=== PATIENT | male | born 1945 | race Caucasian/White ===

== ENCOUNTER 2020-10-31 08:50 | Outpatient (REF) | payer MEDICARE, SELFPAY ==
[2020-10-31 10:56] LABS: Alanine Aminotransferase 14 U/L (0-40); Albumin Level 4.3 g/dL (3.5-5.0); Alkaline Phosphatase 53 U/L (39-117); Anion Gap 12 (12-20); Aspartate Amino Transferase 17 U/L (5-37); Bilirubin Total 1.2 mg/dL (0.0-1.0); Blood Urea Nitrogen 17 mg/dL (9-16); Calcium 9.2 mg/dL (8.4-10.2); Carbon Dioxide 27 mmol/L (22-29); Chloride 106 mmol/L (96-108); Estimated Glomerular Filt Rate > 60; Glucose Fasting 87 mg/dL (60-99); Potassium 4.1 mmol/L (3.3-5.1); Sodium 141 mmol/L (135-145)
[2020-10-31 11:38] LABS: Prostate Specific Antigen 7.94 ng/mL (<0.05-4.0)
== END 2020-10-31 08:51 | disposition home or self-care (01) ==
LOC: HO.LAB 08:50
PROVIDERS: PCP Internal Medicine; Visit Provider Nurse Practitioner Family
DX: Z13.1 Encounter for screening for diabetes mellitus (principal); Z12.5 Encounter for screening for malignant neoplasm of prostate
CPT/HCPCS: 36415; 80053; 84153

== ENCOUNTER 2021-11-04 08:24 | Outpatient (REF) | payer MEDICARE, SELFPAY ==
[2021-11-04 09:12] LABS: Alanine Aminotransferase 12 U/L (0-40); Albumin Level 4.1 g/dL (3.5-5.0); Alkaline Phosphatase 49 U/L (39-117); Anion Gap 12 (12-20); Aspartate Amino Transferase 16 U/L (5-37); Bilirubin Total 1.2 mg/dL (0.0-1.0); Blood Urea Nitrogen 14 mg/dL (9-16); Calcium 9.2 mg/dL (8.4-10.2); Carbon Dioxide 26 mmol/L (22-29); Chloride 109 mmol/L (96-108); Estimated Glomerular Filt Rate > 60; Glucose Fasting 96 mg/dL (60-99); Potassium 4.2 mmol/L (3.3-5.1); Sodium 143 mmol/L (135-145); Total Protein 6.9 g/dL (6.5-8.0)
[2021-11-04 09:48] LABS: Prostate Specific Antigen 9.99 ng/mL (<0.05-4.0)
== END 2021-11-04 08:25 | disposition home or self-care (01) ==
LOC: HO.LAB 08:24
PROVIDERS: PCP Internal Medicine; Visit Provider Nurse Practitioner Family
DX: Z12.5 Encounter for screening for malignant neoplasm of prostate (principal); Z13.1 Encounter for screening for diabetes mellitus
CPT/HCPCS: 36415; 80053; 84153

== ENCOUNTER 2022-03-05 09:32 | Outpatient (REF) | payer MEDICARE, SELFPAY ==
[2022-03-05 10:02] LABS: MANUAL DIFF FLAG NO
[2022-03-05 10:25] LABS: Basophils Percent Auto 0.4 % (0-2); Eosinophils Absolute Auto 0.1 X10*3/uL (0.0-0.4); Eosinophils Percent Auto 1.3 % (0-4); Hematocrit 40.8 % (42.0-52.0); Hemoglobin 13.4 g/dl (14.0-18.0); Imm Gran Abs Auto 0.08 X10*3/uL (0.00-0.03); Imm Gran Pct Auto 0.8 % (0.0-0.4); Lymphocytes Percent Auto 20.6 % (20-40); Mean Corpuscular HGB Conc 32.8 g/dl (31.0-36.0); Mean Corpuscular Hemoglobin 30.7 pg (27.0-33.0); Mean Corpuscular Volume 93.6 fL (80.0-98.0); Mean Platelet Volume 8.3 fL (9.4-12.4); Monocytes Absolute Auto 0.8 X10*3/uL (0.1-1.2); Neutrophils Absolute Auto 6.6 x10*3/uL (2.0-8.3); Neutrophils Percent Auto 68.9 % (45-73); Platelet Count 350 X10*3/uL (160-400); Red Blood Count 4.36 X10*6/uL (4.60-5.80); Red Cell Distribution Width 13.5 % (11.0-16.0); White Blood Count 9.6 X10*3/uL (4.8-10.8)
[2022-03-05 10:39] LABS: Appearance Urine Cloudy; Color Urine Yellow; Glucose Urine UA Negative (Negative); Leukocyte Esterase Urine Moderate (2+) (Negative); Nitrite Urine Negative (Negative); PH 6.5 (5.0-9.0); UMIC TRIGGER UACC YES; Urine Blood Negative (Negative); Urine Ketones Negative (Negative); Urine Protein 100 (2+) mg/dL (Neg-Trace)
[2022-03-05 10:53] LABS: Alanine Aminotransferase 24 U/L (0-40); Albumin Level 3.9 g/dL (3.5-5.0); Alkaline Phosphatase 52 U/L (39-117); Anion Gap 15 (12-20); Aspartate Amino Transferase 17 U/L (5-37); Bilirubin Total 0.7 mg/dL (0.0-1.0); Blood Urea Nitrogen 10 mg/dL (9-16); C Reactive Protein 0.66 mg/dL (< or = 0.50); Calcium 9.1 mg/dL (8.4-10.2); Carbon Dioxide 25 mmol/L (22-29); Chloride 103 mmol/L (96-108); Estimated Glomerular Filt Rate > 60; Glucose Random 96 mg/dL (60-115); Magnesium 1.8 mg/dL (1.6-2.6); Potassium 4.2 mmol/L (3.3-5.1); Sodium 139 mmol/L (135-145); Total Protein 6.9 g/dL (6.5-8.0)
[2022-03-05 11:09] LABS: Bacteria Urine None Seen (None Seen); Hyaline Casts Urine 0-2 /LPF (0-2); Squamous Epithelial Cell Urine 0-2 /HPF (0-2); UACC Culture Trigger YES; WBC Urine >50 /HPF (0-5)
[2022-03-05 11:11] LABS: Erythrocyte Sedimentation Rate 38 MM/HR (0-15)
[2022-03-05 11:15] LABS: TSH reflex Free T4 1.63 uIU/mL (0.32-4.0); Vitamin D 25-OH Total 17.1 ng/mL (>30)
[2022-03-05 11:53] LABS: Folate 15.3 ng/mL (> or = 4.0); Vitamin B12 592 pg/mL (200-900)
[2022-03-11 18:02] LABS: Testosterone, Free 56.9 pg/mL (30.0-135.0); Testosterone, Total 455 ng/dL (250-1100)
== END 2022-03-05 09:33 | disposition home or self-care (01) ==
LOC: HO.LAB 09:32
PROVIDERS: PCP Internal Medicine; Visit Provider Internal Medicine
DX: R07.89 Other chest pain (principal); E53.8 Deficiency of other specified B group vitamins; R63.4 Abnormal weight loss; E83.42 Hypomagnesemia; R79.89 Other specified abnormal findings of blood chemistry; E55.9 Vitamin D deficiency, unspecified; B37.49 Other urogenital candidiasis; R82.81 Pyuria
CPT/HCPCS: 36415; 80053; 81001; 82306; 82607; 82746; 83735; 84402; 84403; 84443; 85025; 85652; 86140; 87086; 87088

== ENCOUNTER 2022-11-04 09:44 | Outpatient (REF) | payer MEDICARE, SELFPAY ==
[2022-11-04 11:08] LABS: Anion Gap 12 (12-20); Blood Urea Nitrogen 16 mg/dL (9-16); Calcium 9.6 mg/dL (8.4-10.2); Carbon Dioxide 27 mmol/L (22-29); Chloride 106 mmol/L (96-108); Estimated Glomerular Filt Rate > 60; Glucose Fasting 103 mg/dL (60-99); Potassium 4.3 mmol/L (3.3-5.1); Sodium 141 mmol/L (135-145)
== END 2022-11-04 09:45 | disposition home or self-care (01) ==
LOC: HO.LAB 09:44
PROVIDERS: PCP Internal Medicine; Visit Provider Nurse Practitioner Family
DX: Z13.1 Encounter for screening for diabetes mellitus (principal)
CPT/HCPCS: 36415; 80048

== ENCOUNTER 2022-11-12 08:16 | Outpatient (REF) | payer MEDICARE, SELFPAY ==
[2022-11-12 08:59] LABS: Estimated Average Glucose 103 mg/dL; Hemoglobin A1c % 5.2 %
== END 2022-11-12 08:17 | disposition home or self-care (01) ==
LOC: HO.LAB 08:16
PROVIDERS: PCP Internal Medicine; Visit Provider Nurse Practitioner Family
DX: R73.01 Impaired fasting glucose (principal)
CPT/HCPCS: 36415; 83036

== ENCOUNTER 2022-12-08 09:48 | Outpatient (AMB) | payer MEDICARE, SELFPAY ==
--- NOTE | 2022-12-08 09:56 | MHC.PC.OV ---
Vital Signs 12/08/22 09:57 Height 5 ft 11 in Weight 185 lb BMI 25.8 BP 130/80 Blood Pressure Location Lt brachial Position Sitting Pulse 48 L Pulse Source Pulse Oximeter Pulse Oximetry (%) 97 Oxygen Delivery Method Room Air Intake Visit Reasons: BPH Pricing Associate Required: No Accompanied by: Self / Same As Patient Allergies brimonidine [BRIMONIDINE] Allergy (Intermediate, Verified 12/08/22 10:22) ITCHING Medication List - Last Reconciled 12/08/22 by Silvio Kothari MD ascorbate calcium (vitamin C) 500 mg PO DAILY cholecalciferol (vitamin D3) 50 mcg PO DAILY 90 days clindamycin phosphate 1% 1 appl topical DAILY Tobacco use date assessed: 12/08/22 Fall risk assessment: No Falls in past year Last assessed Fall Risk: 12/08/22 Dental Screening Dental Screen Date: 12/08/22 Did you have a dental visit in the last 12 months?: No Did you have a dental problem in the last 6 months where you did not have access to dental care?: No Was dental information given to patient?: Patient has dentist HPI BPH HPI Details Patient comes in today for his follow up visit Relates that he has been experiencing recurrent dizziness for a while now Has not been able to identify any particular triggers for his dizziness, which he states last for a few seconds He denies any associated headaches, chest pains or shortness of breath No nausea/ vomiting, no abdominal pain No change in bowel habits noted Patient also had some labs done last month after he was seen for his Medicare wellness exam [facility] Medical History Benign localized hyperplasia of prostate with urinary retention Constipation COVID-19 Vitamin D deficiency Surgical History History of appendectomy History of cataract surgery History of colonoscopy History of hernia surgery History of tonsillectomy History of umbilical hernia repair S/P TURP (status post transurethral resection of prostate) (~05/01/22) Family History Mother No problems noted. Father No problems noted. Social History Housing: House Alcohol intake: former Year quit: 02/06 Patient Tobacco Use Status: Former Tobacco user Quit Date: 1979 Tobacco use type: Cigarette e-Cigarette/Vaping Use: Never Used Second Hand Smoke Exposure: No service: No Current occupational status: retired Cognitive needs: No Hearing needs: No Vision needs: Yes Questionnaire PHQ-9 Over the last 2 weeks, how often have you been bothered by any of the following problems? 1. Little interest or pleasure in doing things: not at all 2. Feeling down, depressed, or hopeless: not at all 3. Trouble falling or staying asleep, or sleeping too much: not at all 4. Feeling tired or having little energy: not at all 5. Poor appetite or overeating: not at all 6. Feeling bad about yourself - or that you are a failure or have let yourself or your family down: not at all 7. Trouble concentrating on things, such as reading the newspaper or watching television: not at all 8. Moving or speaking so slowly that other people could have noticed. Or the opposite - being so fidgety or restless that you have been moving around a lot more than usual: not at all 9. Thoughts that you would be better off or of hurting yourself in some way: not at all Total score: 0 Depression Screening Interpretation: Negative 82985 - PHQ-9 Billing: Yes Source: Developed by Drs. Rory Garay, Jackie Guzman, Uvaldo Milian and colleagues, with an educational lakia from [employer]. Thrive Questionnaire Date Thrive assessed: 12/08/22 I am a: Patient What is your living situation today?: I have a steady place to live Within the past 12 months, did the food you bought not last and you didn't have the money to get more?: Never true Within the past 12 months, did you worry whether your food would run out before you got money to buy more?: Never true Do you have trouble paying for medicines?: No Do you have trouble getting transportation to medical appointments?: No Do you have trouble paying your heating and electricity bill?: No Do you have trouble taking care of your child, family member or friend?: No Do you have trouble with day-to-day activities such as bathing, preparing meals, shopping, managing finances, etc.?: No Are you currently unemployed and looking for a job?: No Are you interested in more education?: No Currently or been in a relationship where the following occur: no concerns reported AUDIT C Alcohol Use Questionnaire (AUDIT-C) 1. How often do you have a drink containing alcohol?: Never 3. How often do you have six or more drinks on one occasion?: Never Total Score: 0 Score Reviewed/Action Taken: Yes TANGELA-7 AMB Questionnaire TANGELA-7 Date TANGELA - 7 assessed: 12/08/22 Feeling nervous, anxious, or on edge: 0 = Not at all Not being able to stop or control worryin = Not at all Worrying too much about different things: 0 = Not at all Trouble relaxin = Not at all Being so restless that it is hard to sit still: 0 = Not at all Becoming easily annoyed or irritable: 0 = Not at all Feeling afraid as if something awful might happen: 0 = Not at all Total TANGELA-7 score (0-4 normal; 5-9 mild; 10-14 moderate; 15-21 severe): 0 Source: Developed by Drs. Rory Garay, Jackie Guzman, Uvaldo Milian and colleagues, with an educational lakia from [employer]. TANGELA-7 Assessment Billing TANGELA-7 Assessment Tool: TANGELA-7 Assessment 58410 Review of Systems Const Denies chills, Denies fatigue, Denies fever(s) and Denies headache(s) ENT Denies dysphagia, Reports dizziness (recurrent - see HPI), Denies otalgia, Denies headache(s), Denies nasal congestion, Denies odynophagia and Denies sore throat Card Denies chest pain, Denies syncope, Denies palpitations and Denies dyspnea Resp Denies cough and Denies dyspnea GI Denies abdominal pain, Denies constipation, Denies dysphagia, Denies heartburn, Denies diarrhea, Denies nausea, Denies odynophagia and Denies vomiting Denies dysuria and Denies nocturia Musc Denies back pain Neuro Reports dizziness (recurrent - see HPI), Denies syncope and Denies headache(s) Endo Denies fatigue and Denies palpitations Physical exam (Primary Care) Vital Signs: Last Vital Signs Pulse 48 L 12/08/22 09:57 BP 130/80 12/08/22 09:57 Pulse Ox 97 12/08/22 09:57 Oxygen Delivery Method Room Air 12/08/22 09:57 BMI result Body Mass Index 25.8 Tobacco/Smoking Status: Tobacco use Status Tobacco use date assessed 12/08/22 12/08/22 10:03 Patient Tobacco Use Status Former Tobacco user 12/08/22 10:03 Tobacco use type Cigarette 12/08/22 10:03 e-Cigarette/Vaping Use Never Used 12/08/22 10:03 PHQ-9: PHQ-9 Score PHQ-9: Total score 0 12/08/22 10:40 Depression Screening Interpretation: Negative Thrive Assessment: Date of Thrive Assessment Date Thrive assessed 12/08/22 12/08/22 10:03 Currently or been in a relationship where the following occur: no concerns reported Const General: no acute distress and alert HENMT Ears: TM's normal bilaterally and EAC's normal Throat: Yes posterior oropharynx normal and Yes tonsils normal (no TP congestion) Eyes EOM: EOMs intact bilaterally and No Nystagmus present Neck Neck: No full ROM, Yes no lymphadenopathy and Yes supple Thyroid: Thyroid normal Carotids: no bruits Resp Auscultation: clear to auscultation bilaterally, no rales and no wheezes Cardio Rate: bradycardic Rhythm: regular rhythm Heart sounds: no murmurs GI Palpation (GI): Soft to palpation, nontender and No hepatosplenomegaly present Auscultation: normal bowel sounds Skin General skin exam: no rashes or lesions noted Neuro Cranial nerves: No Nystagmus present Extrem General: Yes no clubbing, cyanosis or edema Results Reviewed Results Reviewed: Laboratory Tests 11/04/22 11/12/22 10:08 08:23 Sodium 141 Potassium 4.3 Creatinine 0.92 Estimated GFR > 60 Fasting Glucose 103 H Hemoglobin A1c % 5.2 Calcium 9.6 Assessment and Plan Assessment & Plan (1) Dizziness: Code(s): R42 - Dizziness and giddiness Plan: Results of his labs done last month reviewed and discussed with patient Will send him for some repeat labs REG for further evaluation (2) Bradycardia: Code(s): R00.1 - Bradycardia, unspecified Plan: Will send patient also for EKG and echocardiogram REG for further evaluation of his bradycardia and recent recurrent dizziness Advised that further tests may be ordered depending on how his labs and initial EKG and echocardiogram come out (3) Elevated fasting glucose: Code(s): R73.01 - Impaired fasting glucose Plan: His FBS was slightly elevated on his recent labs but his HgbA1c came back normal at 5.2% when checked Reinforce low calorie diet /exercise as tolerated (4) Vitamin D deficiency: Code(s): E55.9 - Vitamin D deficiency, unspecified Plan: Continue Vitamin D3 2000 units QD (5) Benign localized hyperplasia of prostate with urinary retention: Code(s): N40.1 - Benign prostatic hyperplasia with lower urinary tract symptoms; R33.8 - Other retention of urine Plan: S/P TURP in April 2022 Recent biopsy showed no malignancy on pathology Follow up with urology as scheduled (6) Rosacea: Code(s): L71.9 - Rosacea, unspecified Plan: Continue Clindamycin 1% apply to rash on face QD Follow up with dermatology as scheduled Plan Follow up in 6 months Orders: Orders CA echo transthoracic complete 12/08/22 R00.1 - Bradycardia, unspecified, R42 - Dizziness and giddiness ECG 12 lead EKG 12/08/22 R00.1 - Bradycardia, unspecified, R42 - Dizziness and giddiness Vitamin B12 and Folate 12/08/22 E53.8 - Deficiency of other specified B group vitamins, R00.1 - Bradycardia, unspecified, R42 - Dizziness and giddiness Comprehensive [place]. Panel Fast 12/08/22 R00.1 - Bradycardia, unspecified, R42 - Dizziness and giddiness Lipid Panel 12/08/22 E78.00 - Pure hypercholesterolemia, unspecified, R00.1 - Bradycardia, unspecified, R42 - Dizziness and giddiness Magnesium 12/08/22 E83.42 - Hypomagnesemia, R00.1 - Bradycardia, unspecified, R42 - Dizziness and giddiness Prostate Specific Antigen 12/08/22 N40.0 - Benign prostatic hyperplasia without lower urinary tract symptoms TSH reflex Free T4 12/08/22 R00.1 - Bradycardia, unspecified, R42 - Dizziness and giddiness Vitamin D 25-OH Total 12/08/22 E55.9 - Vitamin D deficiency, unspecified Complete Blood Count Auto Diff 12/08/22 R00.1 - Bradycardia, unspecified, R42 - Dizziness and giddiness UA CC w/rflx Micro + Cult 12/08/22 N40.1 - Benign prostatic hyperplasia with lower urinary tract symptoms, R33.8 - Other retention of urine Coding Level of Care Code Est Pt Level 4 (64920) Diagnoses Dizziness R42 Bradycardia R00.1 Elevated fasting glucose R73.01 Vitamin D deficiency E55.9 Benign localized hyperplasia of prostate with urinary retention N40.1; R33.8 Rosacea L71.9 Additional Codes TANGELA-7 Assessment Billing - TANGELA-7 Assessment Tool: TANGELA-7 Assessment [id number] ([id number])
[2022-12-08 09:57] VITALS: BP 130/80; PULSE 48; O2SAT 97; BMI 25.8
== END 2022-12-08 10:41 | disposition home or self-care (01) ==
PROVIDERS: PCP Internal Medicine; Visit Provider Internal Medicine
DX: R42 Dizziness and giddiness (principal); R00.1 Bradycardia, unspecified; R73.01 Impaired fasting glucose; E55.9 Vitamin D deficiency, unspecified; N40.1 Benign prostatic hyperplasia with lower urinary tract symptoms; R33.8 Other retention of urine; L71.9 Rosacea, unspecified
CPT/HCPCS: 99214

== ENCOUNTER → 2022-12-10 07:42 | Outpatient (REF) | payer MEDICARE, SELFPAY ==
--- NOTE | 2022-12-10 07:48 | ECG_ITS ---
Test Reason : ERINN Blood Pressure : / mmHG Vent. Rate : 058 BPM Atrial Rate : 058 BPM P-R Int : 204 ms QRS Dur : 122 ms QT Int : 426 ms P-R-T Axes : 058 -23 022 degrees QTc Int : 418 ms Sinus bradycardia Non-specific intra-ventricular conduction delay Minimal voltage criteria for LVH, may be normal variant ( Sergio product ) Borderline ECG When compared with ECG of 15-AUG-2016 08:05, No significant change was found Referred By: Silvio Kothari Electronically Signed By:CIPRIANO BARAHONA MD
[2022-12-10 08:14] LABS: MANUAL DIFF FLAG NO
[2022-12-10 08:31] LABS: Basophils Percent Auto 0.4 % (0-2); Eosinophils Absolute Auto 0.1 X10*3/uL (0.0-0.4); Eosinophils Percent Auto 1.7 % (0-4); Hematocrit 49.5 % (42.0-52.0); Hemoglobin 16.5 g/dl (14.0-18.0); Imm Gran Abs Auto 0.03 X10*3/uL (0.00-0.03); Imm Gran Pct Auto 0.4 % (0.0-0.4); Lymphocytes Absolute Auto 2.3 X10*3/uL (1.2-4.9); Lymphocytes Percent Auto 31.2 % (20-40); Mean Corpuscular HGB Conc 33.3 g/dl (31.0-36.0); Mean Corpuscular Volume 92.9 fL (80.0-98.0); Mean Platelet Volume 8.8 fL (9.4-12.4); Monocytes Absolute Auto 0.6 X10*3/uL (0.1-1.2); Monocytes Percent Auto 8.6 % (2-11); Neutrophils Absolute Auto 4.2 x10*3/uL (2.0-8.3); Neutrophils Percent Auto 57.7 % (45-73); Platelet Count 213 X10*3/uL (160-400); Red Blood Count 5.33 X10*6/uL (4.60-5.80); Red Cell Distribution Width 13.7 % (11.0-16.0); White Blood Count 7.2 X10*3/uL (4.8-10.8)
[2022-12-10 09:13] LABS: Alanine Aminotransferase 20 U/L (0-40); Albumin Level 4.3 g/dL (3.5-5.0); Alkaline Phosphatase 73 U/L (39-117); Anion Gap 11 (12-20); Aspartate Amino Transferase 21 U/L (5-37); Bilirubin Total 0.9 mg/dL (0.0-1.0); Blood Urea Nitrogen 15 mg/dL (9-16); Carbon Dioxide 28 mmol/L (22-29); Chloride 107 mmol/L (96-108); Cholesterol 169 mg/dL; Estimated Glomerular Filt Rate > 60; Glucose Fasting 110 mg/dL (60-99); HDL Cholesterol 56 mg/dL; LDL Cholesterol Calculated 104 mg/dl; Magnesium 2.1 mg/dL (1.6-2.6); Potassium 4.6 mmol/L (3.3-5.1); Sodium 141 mmol/L (135-145); Total Protein 7.6 g/dL (6.5-8.0); Triglycerides 47 mg/dL
[2022-12-10 09:29] LABS: TSH reflex Free T4 1.29 uIU/mL (0.32-4.0); Vitamin D 25-OH Total 47.4 ng/mL (>30)
[2022-12-10 09:41] LABS: Folate 15.1 ng/mL (> or = 4.0); Prostate Specific Antigen 5.85 ng/mL (<0.05-4.0); Vitamin B12 501 pg/mL (200-900)
[2022-12-10 10:15] LABS: Appearance Urine Clear; Color Urine Yellow; Glucose Urine UA Negative (Negative); Leukocyte Esterase Urine Negative (Negative); Nitrite Urine Negative (Negative); PH 6.5 (5.0-9.0); Urine Blood Negative (Negative); Urine Ketones Negative (Negative); Urine Protein Negative (Neg-Trace)
== END ==
LOC: HO.CARD 07:42
PROVIDERS: PCP Internal Medicine; Visit Provider Internal Medicine
DX: Z12.5 Encounter for screening for malignant neoplasm of prostate (principal); R00.1 Bradycardia, unspecified; R42 Dizziness and giddiness; E78.00 Pure hypercholesterolemia, unspecified; N40.1 Benign prostatic hyperplasia with lower urinary tract symptoms; R33.8 Other retention of urine; E53.8 Deficiency of other specified B group vitamins; N40.0 Benign prostatic hyperplasia without lower urinary tract symptoms; E55.9 Vitamin D deficiency, unspecified
CPT/HCPCS: 36415; 80053; 80061; 81003; 82306; 82607; 82746; 83735; 84153; 84443; 85025; 93005

== ENCOUNTER → 2022-12-10 07:48 | Outpatient (BNV) | payer MEDICARE, SELFPAY | PROVIDERS: PCP Internal Medicine; Visit Provider Internal Medicine Cardiovascular Disease | DX: R00.1 Bradycardia, unspecified (principal) | CPT/HCPCS: 93010 ==

== ENCOUNTER → 2023-01-12 07:45 | Outpatient (REF) | payer MEDICARE, SELFPAY ==
--- NOTE | 2023-01-12 07:55 | CA_ITS ---
Transthoracic Echocardiogram Patient (Last, First, Middle): Jean Marie Bose P Gender: Male Date of : 1945 Age: 77 Procedure Date: 01/12/2023 Procedure Type: Transthoracic Echocardiogram Location: OP Height: 180.34 cm Weight: 83.92 kg BSA: 2.04 m2 Heart Rate: bpm BP: 118 / 60 mmHg Family Dinner Service Specialist: Referring MD: Silvio Kothari MD Symptoms: R00.1 - Bradycardia, unspecified Study Quality: Adequate ECG Rhythm: Sinus Conclusions: - The left ventricular systolic function is normal. The calculated ejection fraction is 57% by biplane method. - There is mild calcification of the aortic valve. - No obvious valvular pathology seen on this study. Findings Left Ventricle Normal left ventricular cavity size. There is mildly increased left ventricular wall thickness. The left ventricular systolic function is normal. The calculated ejection fraction is 57% by biplane method. There is no evidence of regional wall motion abnormalities. Evidence suggests grade I (mild) diastolic dysfunction. Right Ventricle Normal right ventricular cavity size and systolic function. Atria The left atrium is mildly dilated. The right atrium is normal in size. Aortic Valve There is mild calcification of the aortic valve. There is no aortic valve stenosis. There is trace (trivial) aortic valve regurgitation. Mitral Valve The mitral valve appears normal. There is no mitral valve regurgitation. There is no mitral valve stenosis. Pulmonic Valve The pulmonic valve is likely normal. Tricuspid Valve Normal tricuspid valve structure. There is trace tricuspid valve regurgitation. There is no evidence of pulmonary hypertension. Great Vessels The asc aorta is normal in size. Venous The inferior vena cava is normal in size and collapses greater than 50% with inspiration. Pericardium/Pleural There is no evidence of pericardial effusion. Prior Study Comparison No prior study available for comparison. Recommendations, Care & Conclusions No obvious valvular pathology seen on this study. Measurements 2D Linear Measurements IVSd: 1.09 0.6-0.9/0.6-1.0 cm LVIDd: 5.55 3.9-5.3/4.2-5.9 cm LVIDd Index: 2.72 2.4-3.2/2.2-3.1 cm/m2 LVIDs: 3.70 2.0-3.6 cm LVPWd: 1.02 0.7-1.1 cm LA Diam: 2.90 2.7-3.8/3.0-4.0 cm LAIDs Index: 1.42 1.5-2.3 cm/m2 LV Mass: 289.64 67-162/88-224 g LV Mass Index: 141.98 43-95/49-115 g/m2 LVOT Diam: 2.60 3.0+(-)1.3 cm 2D Systolic Function EF 4C: 54.40 >55% EF 2C: 58.90 >55% EF BiP: 56.50 >55% Mitral Valve MV Pk E: 0.66 MV PK A: 1.12 MV Decel Time: 310.00 E/A: 0.60 E'Lateral: 6.09 E'Medial: 5.66 E/E' Med: 11.70 E/E' Lat: 10.90 PHT: 91.00 MVA PHT: 2.42 Decel Gates: 2.14 Aortic Valve AoV Pk Delfin: 1.57 AoV Mn Delfin: 1.02 AoV VTI: 0.34 AoV Pk Grad: 10.00 Aov Mn Grad: 6.00 ELINA Cont.VTI: 3.79 LVOT LVOT Pk Delfin: 1.09 LVOT Mn Delfin: 0.70 LVOT VTI: 0.24 LVOT Pk Grad: 5.00 LVOT Mn Grad: 2.00 LVOT Diam: 2.60 LVOT Area: 5.31 Diastolic Function MV Pk E: 0.66 MV Pk A: 1.12 E/A: 0.60 E'Medial: 5.66 E/E' Med: 11.70 E' Laterial: 6.09 E/E' Lat: 10.90 Right Ventricle TAPSE (mm): 29.50 TVS' Delfin: 10.60 Tricuspid Valve TR Pk Delfin: 2.05 TR Pk Grad: 17.00 Great Vessels Aorta Sinus of Valsalva: 3.60 2.0-3.5 cm Ao Asc: 3.50 2.1-3.4 cm Pulmonary Valve PV Pk Delfin: 1.51 Peak PV Grad: 9.00 Updated in Other Vendor System with Status of Final Jeremy Wright MD electronically signed on 01/12/2023 9:46:52 AM with status of Final
== END ==
LOC: HO.CARD 07:45
PROVIDERS: PCP Internal Medicine; Visit Provider Internal Medicine
DX: R00.2 Palpitations (principal); R42 Dizziness and giddiness
CPT/HCPCS: 93306

== ENCOUNTER → 2023-01-12 07:55 | Outpatient (BNV) | payer MEDICARE, SELFPAY | PROVIDERS: PCP Internal Medicine; Visit Provider Internal Medicine | DX: I35.8 Other nonrheumatic aortic valve disorders (principal); I51.9 Heart disease, unspecified | CPT/HCPCS: 93306 ==

== ENCOUNTER 2023-04-07 22:01 | Inpatient (IN) | payer MEDICARE, SELFPAY ==
--- NOTE | ~2023-04-07 | MR_ITS ---
MR LUMBAR SPINE WITHOUT CONTRAST CLINICAL INFORMATION: Lower extremity weakness. COMPARISON: Lumbar spine CT 04/07/2023. TECHNIQUE: MRI of the lumbar spine was obtained using routine sequences without contrast. FINDINGS: There are 5 nonrib-bearing lumbar-type vertebral bodies. Lumbar alignment is maintained. The vertebral body heights are preserved. Disc volumes are maintained. There is disc desiccation at all lumbar levels with the exception of L5-S1. Intraosseous hemangiomas within the L1 and L5 vertebral bodies. Multilevel endplate osteophytes. Conus terminates at the L1 level. The bladder is significantly distended. Partially imaged chronic severe bilateral hydroureteronephrosis bilaterally and significant distention of the bladder, findings that are similar when compared to abdominal CT studies dated back to 04/29/2017. L1-L2: Small annular disc bulge with a superimposed shallow left paracentral disc protrusion results in mild posterior deflection of the traversing left L2 nerve root within the left subarticular zone. Disc osteophyte and facet arthropathy result in mild bilateral foraminal encroachment. No central canal stenosis. L2-L3: Diffuse annular disc bulge with a superimposed shallow left paracentral disc protrusion resulting in mild posterior deflection of the traversing left L3 nerve root within the left subarticular zone. Mild bilateral facet arthropathy. No central canal stenosis. There is mild foraminal encroachment bilaterally. L3-L4: Diffuse annular disc bulge the superimposed left paracentral/left lateral disc protrusion that is in part disc osteophyte which compresses the traversing left L4 nerve root within the left subarticular zone and that results in moderate left-sided foraminal stenosis with mass effect on the extraforaminal left L3 nerve root. There is mild to moderate right foraminal stenosis. The central canal is patent. L4-L5: There is a right paracentral/right lateral disc protrusion that compresses the traversing right L5 nerve root within the right subarticular zone and that results in moderate to severe right-sided foraminal stenosis with mass effect on the foraminal and extraforaminal segments of the exiting right L4 nerve root. No central canal and no left foraminal stenosis. L5-S1: Diffuse disc osteophyte complex and severe bilateral facet arthropathy. No central canal stenosis. Lateral disc osteophyte protrusions contact the extraforaminal L5 nerve roots bilaterally. MR/MR lumbar spine wo con IMPRESSION: - At L5-S1, lateral disc osteophyte protrusions contact the extraforaminal L5 nerve roots bilaterally. - At L4-L5, there is a right paracentral/right lateral disc protrusion that compresses the traversing right L5 nerve root within the right subarticular zone and that results in moderate to severe right-sided foraminal stenosis with mass effect on the foraminal and extraforaminal segments of the exiting right L4 nerve root. - At L3-L4, there is a left paracentral/left lateral disc protrusion that is in part disc osteophyte which compresses the traversing left L4 nerve root within the left subarticular zone and that results in moderate left-sided foraminal stenosis with mass effect on the extraforaminal left L3 nerve root. - At L2-L3, a shallow left paracentral disc protrusion results in mild posterior deflection of the traversing left L3 nerve root within the left subarticular zone. - At L1-L2, a shallow left paracentral disc protrusion results in mild posterior deflection of the traversing left L2 nerve root within the left subarticular zone. - The bladder is significantly distended. Partially imaged chronic severe bilateral hydroureteronephrosis bilaterally and significant distention of the bladder, findings that are similar when compared to abdominal CT studies dated back to 04/29/2017.
--- NOTE | ~2023-04-07 | MR_ITS ---
MRI OF THE BRAIN WITHOUT IV CONTRAST INDICATION: Right-sided weakness. COMPARISON: None available. TECHNIQUE: Multiplanar multisequence MR imaging of the brain was obtained without IV contrast. 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 There is no mass effect and there is no hemorrhagic transformation. There is global cerebral volume loss and there is mild to moderate chronic microangiopathy. There is no hydrocephalus, extra-axial surface collection, or herniation. Absent right internal carotid artery flow void suggesting slow flow within versus occlusion of the right internal carotid artery which would be better assessed with a CTA of the head and neck. There is no intracranial hemorrhage on the gradient recalled echo acquisition. The midline structures are normal. The cerebellar tonsils are normally positioned. The cerebellum and brainstem are normal. The craniocervical junction is normal. Osseous marrow signal intensity is homogenous. The visualized soft tissues are unremarkable. 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 There is no mass effect and there is no hemorrhagic transformation. - Absent right internal carotid artery flow void suggesting slow flow within versus occlusion of the right internal carotid artery which would be better assessed with a CTA of the head and neck. - There is global cerebral volume loss and there is mild to moderate chronic microangiopathy. Covering provider paged with these findings at 2:47PM of 04/08/2023.
--- NOTE | ~2023-04-07 | CT_ITS ---
EXAMINATION: CT LUMBAR SPINE WITHOUT CONTRAST CLINICAL INFORMATION: Right lower extremity weakness COMPARISON: 04/29/2017 TECHNIQUE: Multidetector helical imaging was performed through the lumbar spine. Coronal and sagittal reformatted images were created. This CT examination was performed using dose optimization techniques as appropriate, variously including the following: *Automated exposure control *Adjustment of mA and/or kV according to patient size (this includes techniques or standardized protocols for targeted exams where dose is matched to indication/reason for exam; i.e. extremities or head) *Use of iterative reconstruction technique DLP; 1503 mGy-cm FINDINGS: There is anatomic alignment of the lumbar vertebral bodies and posterior elements. Vertebral body heights are maintained. Multilevel endplate osteophytes are present. No acute fracture is seen. There is mild to moderate multilevel facet arthropathy. Intervertebral disc spaces are relatively well-preserved, with vacuum disc phenomenon at L2-L3, L3-L4, and L4-L5. Right-sided disc protrusion is suspected at L4-L5 with at least moderate central stenosis as well as neural foraminal narrowing. There are degenerative changes along the bilateral sacroiliac joints. Bilateral renal pelvises appear dilated, though overall less prominent than on 04/29/2017; this may be a chronic finding. Moderate atherosclerotic calcification of the aorta. Dense calcification of the bilateral proximal renal arteries. CT/CT lumbar spine wo IV con IMPRESSION: 1. Suspected right-sided disc protrusion at L4-L5 with at least moderate central stenosis and neural foraminal narrowing. Given the clinical history, further evaluation with MRI is recommended. 2. Degenerative changes as noted above. 3. Dilated bilateral renal pelvises which may be a chronic finding, as this appeared more severe on 04/29/2017.
--- NOTE | ~2023-04-07 | CT_ITS ---
EXAMINATION: CT HEAD WITHOUT CONTRAST CLINICAL INFORMATION: Right leg weakness COMPARISON: None available. TECHNIQUE: Contiguous axial imaging was performed from the skull base to vertex without intravenous administration of contrast. This CT examination was performed using dose optimization techniques as appropriate, variously including the following: *Automated exposure control *Adjustment of mA and/or kV according to patient size (this includes techniques or standardized protocols for targeted exams where dose is matched to indication/reason for exam; i.e. extremities or head) *Use of iterative reconstruction technique DLP: 1503 mGy-cm FINDINGS: There is no evidence of acute intracranial hemorrhage or territorial infarction. No abnormal mass-effect or midline shift is seen. Lang to white matter differentiation is well preserved. No extra-axial fluid collections are identified. The ventricles are normal in size. Mild to moderate volume loss is noted. There is mild periventricular white matter hypoattenuation consistent with chronic small vessel ischemic disease. The osseous structures and soft tissues are normal. Mild mucosal thickening of the maxillary sinuses. The mastoid air cells are well-aerated. CT/CT head/brain wo IV con IMPRESSION: No acute intracranial pathology. Chronic small vessel ischemic disease and volume loss.
--- NOTE | ~2023-04-07 | CT_ITS ---
EXAMINATION: CT ANGIOGRAM HEAD CT ANGIOGRAM NECK CLINICAL INFORMATION: Reason for Exam acute cva COMPARISON: MRI brain from earlier same day TECHNIQUE: Test bolus sequences followed by intravenous administration 70 mL of Omnipaque 350. Helical imaging was performed in the axial plane from the aortic arch to the skull vertex. Delayed postcontrast imaging of the head was also performed. The data was processed at the principal technologist's workstation for generation of MIP sequences. Angled MIPs and volume rendered reformatted images were also generated at an offline 3D workstation. Stenoses are assessed in accordance with Artis et al. Quantification of Carotid Stenosis on CT Angiography. AJR 2006. 27(1):13-19. This CT examination was performed using dose optimization techniques as appropriate, variously including the following: *Automated exposure control *Adjustment of mA and/or kV according to patient size (this includes techniques or standardized protocols for targeted exams where dose is matched to indication/reason for exam; i.e. 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 No significant mass effect or hemorrhagic transformation. No new territorial loss of monte-white differentiation. Mild generalized parenchymal volume loss. Presumed mild chronic microangiopathic changes. No extra-axial fluid collection. No herniation pattern. No pathologic intra-axial enhancement or regional oligemia. The orbits are grossly normal. Trace mucosal disease within the maxillary sinus alveolar recesses. Trace inferior left mastoid effusion with associated sclerosis. Osseous structures are intact. 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 Occluded intracranial right ICA throughout the reconstituted supraclinoid segment via the havas[place]ai of [place]. Calcified plaque of the intradural vertebral arteries contributes to mild right without significant left vertebral artery stenosis. Calcific plaque along the bilateral carotid siphons with mild luminal narrowing of the left supraclinoid ICA. Otherwise no significant steno-occlusive disease in the anterior or posterior circulation. Incidental RICK trifurcation. No aneurysms and no high flow vascular malformations. Timing of the contrast bolus allows assessment of the major dural venous sinuses, which all opacify normally CTA NECK: Suboptimal contrast bolus timing. Classic 3 vessel branching pattern of the aortic arch. Mild calcified atherosclerosis of the aortic arch and great vessel origins, which remain widely patent. Atherosclerotic disease along the left greater than right distal common carotid arteries contributes to mild luminal narrowing on the left. Densely calcified atheromatous plaque of the bilateral carotid bifurcations with occluded right ICA just beyond its origin and throughout the remainder of its cervical segment. The left ICA remains widely patent. Atherosclerosis mildly narrows the bilateral vertebral artery origins. Dominant right vertebral artery. Both vertebral arteries are otherwise widely patent throughout their extracranial cervical course. CT NECK: 7 mm hypodense left thyroid nodule below size criteria for imaging follow-up. Biapical pleural parenchymal scarring with interlobular septal thickening which may reflect mild interstitial pulmonary edema. Reversal of the lower cervical lordosis and spondylitic changes within the imaged spine. Partially imaged bulky bridging right eccentric ventral disc osteophytes in the thoracic spine. Ossification adjacent to the C7-T2 spinous processes likely sequela of remote trauma. Elongated and ossified styloid processes can be correlated clinically for signs of Strathmore syndrome. CT/CT angio head neck IMPRESSION: 1. 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 No significant mass effect or hemorrhagic transformation. No new territorial loss of monte-white differentiation. 2. 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 3. Occluded right ICA just beyond its origin and throughout the reconstituted supraclinoid segment via of the havas[place] of [place].
--- NOTE | 2023-04-07 22:07 | ECG_ITS ---
Test Reason : LEG PAIN Blood Pressure : / mmHG Vent. Rate : 060 BPM Atrial Rate : 060 BPM P-R Int : 188 ms QRS Dur : 116 ms QT Int : 398 ms P-R-T Axes : 049 -25 024 degrees QTc Int : 398 ms Normal sinus rhythm Incomplete right bundle branch block Minimal voltage criteria for LVH, may be normal variant ( Sergio product ) Borderline ECG When compared with ECG of 10-DEC-2022 07:50, No significant change was found Referred By: Main Jj Electronically Signed By:JUSTIN BOYER MD
[2023-04-07 22:34] VITALS: BP 128/76; PULSE 62; O2SAT 97
[2023-04-07 22:36] LABS: MANUAL DIFF FLAG NO
[2023-04-07 22:37] VITALS: BP 132/67; PULSE 60; RESP 12; TEMP 36.8; O2SAT 95; BMI 26.4
[2023-04-07 22:39] LABS: Basophils Percent Auto 0.3 % (0-2); Eosinophils Absolute Auto 0.2 X10*3/uL (0.0-0.4); Eosinophils Percent Auto 2.5 % (0-4); Hemoglobin 16.3 g/dl (14.0-18.0); Imm Gran Abs Auto 0.03 X10*3/uL (0.00-0.03); Imm Gran Pct Auto 0.4 % (0.0-0.4); Lymphocytes Absolute Auto 2.4 X10*3/uL (1.2-4.9); Lymphocytes Percent Auto 32.8 % (20-40); Mean Corpuscular HGB Conc 34.7 g/dl (31.0-36.0); Mean Corpuscular Hemoglobin 31.6 pg (27.0-33.0); Mean Corpuscular Volume 91.1 fL (80.0-98.0); Mean Platelet Volume 9.2 fL (9.4-12.4); Monocytes Absolute Auto 0.7 X10*3/uL (0.1-1.2); Monocytes Percent Auto 8.9 % (2-11); Neutrophils Absolute Auto 4.1 x10*3/uL (2.0-8.3); Neutrophils Percent Auto 55.1 % (45-73); Platelet Count 193 X10*3/uL (160-400); Red Blood Count 5.16 X10*6/uL (4.60-5.80); Red Cell Distribution Width 13.2 % (11.0-16.0); White Blood Count 7.3 X10*3/uL (4.8-10.8)
[2023-04-07 22:51] LABS: Alanine Aminotransferase 20 U/L (0-40); Alkaline Phosphatase 68 U/L (39-117); Anion Gap 10 (12-20); Aspartate Amino Transferase 19 U/L (5-37); Bilirubin Total 0.9 mg/dL (0.0-1.0); Blood Urea Nitrogen 28 mg/dL (9-16); Calcium 9.5 mg/dL (8.4-10.2); Carbon Dioxide 25 mmol/L (22-29); Chloride 109 mmol/L (96-108); Creatinine Clr Calc Pharmacy 60.6; Estimated Glomerular Filt Rate > 60; Glucose Random 169 mg/dL (60-115); Potassium 3.9 mmol/L (3.3-5.1); Sodium 140 mmol/L (135-145); Total Protein 7.2 g/dL (6.5-8.0)
[2023-04-07 22:56] LABS: Prothrombin Time 11.6 SEC (11.1-13.3)
[2023-04-07 23:06] VITALS: BP 132/67; PULSE 60; RESP 12; TEMP 36.8; O2SAT 95
--- NOTE | 2023-04-07 23:07 | PC.NURSE ---
Pt ca&ox4, no signs of distress. Pt denies pain, sob, vomiting. IV placed. Pt changed into hospital attire. Plan of care ongoing.
[2023-04-07 23:12] LABS: Erythrocyte Sedimentation Rate 7 MM/HR (0-15)
[2023-04-08 00:08] VITALS: BP 124/61; PULSE 53; RESP 15; TEMP 36.7; O2SAT 96
--- NOTE | 2023-04-08 00:21 | ED_ITS ---
HPI - Neuro Symptoms/Deficit General Chief Complaint: Extremity Problem Stated Complaint: NUMBNESS R LEG Time Seen by Provider: 04/07/23 22:05 Source: patient and EMS Mode of arrival: EMS Limitations: no limitations History of Present Illness HPI Narrative: Patient no significant past medical history not taking any medications 2 days ago noticed slight heaviness and tingling numbness feeling of the right lower extremity which gotten better again intermittently came back getting heavier and today prior to arrival was unable to walk no headache no neck pain no back pain no history of similar complaints in the past no history of any cancer no bladder or bowel involvement no incontinence Related Data Home Medications Medication Instructions Recorded Confirmed ascorbate calcium (vitamin C) 500 500 mg PO DAILY 10/30/20 12/08/22 mg tablet Previous Rx's Medication Instructions Recorded cholecalciferol (vitamin D3) 50 50 mcg PO DAILY 90 days #90 caps 07/08/22 mcg (2,000 unit) capsule clindamycin phosphate 1 % topical 1 appl topical DAILY #30 mL 10/25/22 solution Allergies Allergy/AdvReac Type Severity Reaction Status Date / Time brimonidine [BRIMONIDINE] Allergy Intermediate ITCHING Verified 12/08/22 10:22 Review of Systems 2 Review of Systems: Yes all other systems are reviewed and are negative PMFSH Past Medical History Medical History Vitamin D deficiency Constipation Benign localized hyperplasia of prostate with urinary retention COVID-19 Surgical History S/P TURP (status post transurethral resection of prostate) (~05/01/22) History of colonoscopy History of cataract surgery History of tonsillectomy History of appendectomy History of umbilical hernia repair History of hernia surgery Family History Family History Mother No problems noted. Father No problems noted. Social History Housing: House Alcohol intake: former Year quit: 02/06 Patient Tobacco Use Status: Former Tobacco user Quit Date: 1979 Tobacco use type: Cigarette Smoked in Last 30 Days: No e-Cigarette/Vaping Use: Never Used Second Hand Smoke Exposure: No Use of substances other than those prescribed or required for medical reasons: Yes Substance Use Type: Marijuana Advance Directives: No Advance Directives Information Provided: No service: No Current occupational status: retired Cognitive needs: No Hearing needs: No Vision needs: Yes Physical Exam 2 Vital Signs: Vital Signs: Last Vital Signs Temp 98.0 F 04/08/23 00:08 Pulse 53 04/08/23 00:08 Resp 15 04/08/23 00:08 BP 124/61 04/08/23 00:08 Pulse Ox 96 04/08/23 00:08 O2 Del Method Room Air 04/08/23 00:08 BMI result Body Mass Index 26.4 Appearance: Alert. Oriented X3. No acute distress. Eyes: PERRLA, No Nystagmus ENT: Pharynx normal. Oral Mucosa moist Neck: Normal inspection. Neck supple. CVS: Normal heart rate and rhythm. Pulses normal. Respiratory: No respiratory distress. Equal air entry bilateral, no wheezing/rales/rhonchi Abdomen: Soft and nontender. Bowel sounds are present, no mass palpable, no CVA tenderness Skin: Skin warm and dry. Normal skin color. Normal skin turgor. Extremities: No lower extremity edema. No calf tenderness SLR negative bilaterally deep tender reflexes difficult to elicit both lower extremities tone is normal both sides back: No lumbar tenderness planter's downgoing reflexes sacral sensation intact Neuro: Oriented X 3. Right leg-4/5 strength, left 5/5 No sensory deficit.No cerebellar signs , cranial nerves II-XII intact Medical Decision Making Medical Decision Making MDM Narrative: Patient with acute onset of right lower extremity weakness without any trauma no significant back pain clinically patient has lower motor neuron lesion CT scan of the head is negative CT scan the lumbar spine showed suspected right-sided disc protrusion at L4-L5 causing moderate spine central stenosis. Patient straight leg raising test is negative bilateral. Will admit patient for further evaluation including MRI Differential Diagnosis Differential Diagnoses: The differential diagnosis associated with the presentation includes AZEEM brain/spinal cord lesion/spinal Mets/AV malformation/CVA/L GB syndrome/PMR Admission/Observation Consideration of admission/observation: Escalation of care including admission/observation considered Consult Healthcare Provider Management of the patient was discussed with: Hospitalist Lab Data [facility] Lab Attestation statement: I reviewed the patient's lab results. 04/07/23 22:32 04/07/23 22:32 Labs: Lab Results 04/07/23 Range/Units 22:32 WBC 7.3 (4.8-10.8) X10*3/uL RBC 5.16 (4.60-5.80) X10*6/uL Hgb 16.3 (14.0-18.0) g/dl Hct 47.0 (42.0-52.0) % MCV 91.1 (80.0-98.0) fL MCH 31.6 (27.0-33.0) pg MCHC 34.7 (31.0-36.0) g/dl RDW 13.2 (11.0-16.0) % Plt Count 193 (160-400) X10*3/uL MPV 9.2 L (9.4-12.4) fL Immature Gran % (Auto) 0.4 (0.0-0.4) % Neut % (Auto) 55.1 (45-73) % Lymph % (Auto) 32.8 (20-40) % [place] % (Auto) 8.9 (2-11) % Eos % (Auto) 2.5 (0-4) % Baso % (Auto) 0.3 (0-2) % Lymph # (Auto) 2.4 (1.2-4.9) X10*3/uL [place] # (Auto) 0.7 (0.1-1.2) X10*3/uL Eos # (Auto) 0.2 (0.0-0.4) X10*3/uL Baso # (Auto) 0.0 (0.0-0.2) X10*3/uL Abs Immat Gran (auto) 0.03 (0.00-0.03) X10*3/uL Absolute Neuts (auto) 4.1 (2.0-8.3) x10*3/uL Absolute Nucleated RBC 0.000 (0.0-0.012) X10*3/uL Nucleated RBC % (auto) 0.0 (0.0-0.2) /100WBC ESR 7 (0-15) MM/HR PT 11.6 (11.1-13.3) SEC INR 1.0 (0.9-1.1) Sodium 140 (135-145) mmol/L Potassium 3.9 (3.3-5.1) mmol/L Chloride 109 H (96-108) mmol/L Carbon Dioxide 25 (22-29) mmol/L Anion Gap 10 L (12-20) BUN 28 H (9-16) mg/dL Creatinine 1.12 (0.5-1.4) mg/dL Estim Creat Clear Calc 60.6 Estimated GFR > 60 Random Glucose 169 H (60-115) mg/dL Calcium 9.5 (8.4-10.2) mg/dL Total Bilirubin 0.9 (0.0-1.0) mg/dL AST 19 (5-37) U/L ALT 20 (0-40) U/L Alkaline Phosphatase 68 (39-117) U/L Total Protein 7.2 (6.5-8.0) g/dL Albumin 4.0 (3.5-5.0) g/dL NIH Stroke Scale Time: 22:00 Level of Consciousness: Alert Level of Consciousness Questions: Answers both questions correctly Level of Consciousness Commands: Performs both tasks correctly Best Gaze: Normal Visual: No visual loss Facial Palsy: Normal Motor Arm (Right): No drift Motor Arm (Left): No drift Motor Leg (Right): Some effort against gravity Motor Leg (Left): No drift Limb Ataxia: Absent Sensory: Normal Best Language: No aphasia Dysarthia: Normal Extinction and Inattention: No abnormality Score: 2 Discharge Plan Discharge Clinical Impression: Spinal stenosis of lumbar region Patient Disposition: Admitted As Inpatient
--- NOTE | 2023-04-08 01:21 | PC.NURSE ---
Provider and hospitalist with pt. Plan of care ongoing.
--- NOTE | 2023-04-08 01:23 | P.HPHOSP_ITS ---
History of Present Illness Date of Service: 04/08/23 Chief Complaint: Right leg weakness This is a 77-year-old male not on any prescription medications who presents to the emergency department for evaluation of right lower extremity weakness. Patient states he 1st noticed it 2 days prior to presentation while he was walking. Patient states he walks twice a day without any assistive devices at baseline. His leg seemed heavy, numb and soon progressed to weakness. Patient states he could not lift his leg off the ground and he was unable to ambulate. His symptoms were progressive over the last 48 hours. No history of similar complaints in the past. No back pain. No other extremity deficit. No facial droop. No bladder or bowel incontinence. Patient denies fever, chills, chest discomfort, palpitations, shortness of breath, abdominal pain, changes in urinary or bowel habits. In the emergency department, imaging with suspected right-sided disc protrusion at L4-L5 Review of Systems 2 Constitutional: Constitutional: Reports no additional constitutional complaints and Reports weakness Cardiovascular: Cardiovascular: Reports no additional cardiovascular complaints Respiratory: Respiratory: Reports no additional respiratory complaints Gastrointestinal: Gastrointestinal: Reports no additional gastrointestinal complaints Genitourinary: Genitourinary: Reports no additional male genitourinary complaints Musculoskeletal: Musculoskeletal: Reports numbness Neurologic: Reports numbness and Reports weakness [facility] Medical History Vitamin D deficiency Constipation Benign localized hyperplasia of prostate with urinary retention COVID-19 Family History Mother No problems noted. Father No problems noted. Surgical History S/P TURP (status post transurethral resection of prostate) (~05/01/22) History of colonoscopy History of cataract surgery History of tonsillectomy History of appendectomy History of umbilical hernia repair History of hernia surgery Housing: House Alcohol intake: former Year quit: 02/06 Patient Tobacco Use Status: Former Tobacco user Quit Date: 1979 Tobacco use type: Cigarette Smoked in Last 30 Days: No e-Cigarette/Vaping Use: Never Used Second Hand Smoke Exposure: No Use of substances other than those prescribed or required for medical reasons: Yes Substance Use Type: Marijuana Advance Directives: No Advance Directives Information Provided: No service: No Current occupational status: retired Cognitive needs: No Hearing needs: No Vision needs: Yes Meds Allergies Allergy/AdvReac Type Severity Reaction Status Date / Time brimonidine [BRIMONIDINE] Allergy Intermediate ITCHING Verified 12/08/22 10:22 Home Medications Medication Instructions Recorded Confirmed Last Taken Type ascorbate calcium (vitamin C) 500 500 mg PO DAILY 10/30/20 12/08/22 Unknown History mg tablet Physical Exam 2 Vital Signs and Narrative: Vital Signs: Last Vital Signs Temp 98.0 F 04/08/23 00:08 Pulse 53 04/08/23 00:08 Resp 15 04/08/23 00:08 BP 124/61 04/08/23 00:08 Pulse Ox 96 04/08/23 00:08 O2 Del Method Room Air 04/08/23 00:08 BMI result Body Mass Index 26.4 Elderly male lying in bed in no distress Neck supple, no JVD Regular rate and rhythm, S1-S2 heard Regular breath sounds bilaterally, no wheezing or crackles appreciated Abdomen soft nontender, no guarding, no rigidity Patient is awake, alert and oriented to self, place, time and person ; right lower extremity weakness present, knee and ankle reflex reduced, ataxic gait Psych: Normal mood No pedal edema Results Labs 04/07/23 22:32 04/07/23 22:32 Labs: Laboratory Results - last 24 hr 04/07/23 22:32 MCV 91.1 MCH 31.6 MCHC 34.7 RDW 13.2 Plt Count 193 MPV 9.2 L Immature Gran % (Auto) 0.4 Neut % (Auto) 55.1 Lymph % (Auto) 32.8 [place] % (Auto) 8.9 Eos % (Auto) 2.5 Baso % (Auto) 0.3 Lymph # (Auto) 2.4 [place] # (Auto) 0.7 Eos # (Auto) 0.2 Baso # (Auto) 0.0 Abs Immat Gran (auto) 0.03 Absolute Neuts (auto) 4.1 Absolute Nucleated RBC 0.000 Nucleated RBC % (auto) 0.0 ESR 7 PT 11.6 INR 1.0 Anion Gap 10 L Estim Creat Clear Calc 60.6 Estimated GFR > 60 Random Glucose 169 H Calcium 9.5 Total Bilirubin 0.9 AST 19 ALT 20 Alkaline Phosphatase 68 Total Protein 7.2 Albumin 4.0 Imaging Radiologist's Impressions: Impressions Head CT 04/07/23 23:35 IMPRESSION: No acute intracranial pathology. Chronic small vessel ischemic disease and volume loss. Lumbar Spine CT 04/07/23 23:35 IMPRESSION: 1. Suspected right-sided disc protrusion at L4-L5 with at least moderate central stenosis and neural foraminal narrowing. Given the clinical history, further evaluation with MRI is recommended. 2. Degenerative changes as noted above. 3. Dilated bilateral renal pelvises which may be a chronic finding, as this appeared more severe on 04/29/2017. Assessment and Plan (1) Weakness of right leg: Status: Acute Plan This is a 77-year-old male not on any prescription medications who presents to the emergency department for evaluation of right lower extremity weakness. #. Right lower extremity weakness, unclear etiology: Imaging with suspected right-sided disc protrusion at L4-L5 with moderate central stenosis. Will obtain MRI to further delineate anatomy. Consulting Neurology. B12 pending DVT prophylaxis: Lovenox Full code Quality Stroke Does the patient have a stroke diagnosis?: No VTE Prior VTE?: No VTE Risk Level:: Medical - moderate - high VTE Device Contraindication: Treatment Not Indicated VTE Drug Contraindication: N/A - Med Ordered
[2023-04-08 06:03] LABS: MANUAL DIFF FLAG NO
[2023-04-08 06:05] LABS: Basophils Percent Auto 0.3 % (0-2); Eosinophils Absolute Auto 0.1 X10*3/uL (0.0-0.4); Hemoglobin 15.5 g/dl (14.0-18.0); Imm Gran Abs Auto 0.01 X10*3/uL (0.00-0.03); Imm Gran Pct Auto 0.1 % (0.0-0.4); Lymphocytes Absolute Auto 2.1 X10*3/uL (1.2-4.9); Lymphocytes Percent Auto 31.1 % (20-40); Mean Corpuscular HGB Conc 34.4 g/dl (31.0-36.0); Mean Corpuscular Hemoglobin 31.8 pg (27.0-33.0); Mean Corpuscular Volume 92.2 fL (80.0-98.0); Mean Platelet Volume 9.2 fL (9.4-12.4); Monocytes Absolute Auto 0.7 X10*3/uL (0.1-1.2); Monocytes Percent Auto 10.2 % (2-11); Neutrophils Absolute Auto 3.9 x10*3/uL (2.0-8.3); Neutrophils Percent Auto 56.3 % (45-73); Platelet Count 203 X10*3/uL (160-400); Red Blood Count 4.88 X10*6/uL (4.60-5.80); Red Cell Distribution Width 13.2 % (11.0-16.0); White Blood Count 6.9 X10*3/uL (4.8-10.8)
[2023-04-08 06:20] LABS: Anion Gap 11 (12-20); Blood Urea Nitrogen 26 mg/dL (9-16); Calcium 9.1 mg/dL (8.4-10.2); Carbon Dioxide 25 mmol/L (22-29); Chloride 109 mmol/L (96-108); Creatinine Clr Calc Pharmacy 69.3; Estimated Glomerular Filt Rate > 60; Glucose Random 95 mg/dL (60-115); Potassium 3.8 mmol/L (3.3-5.1); Sodium 141 mmol/L (135-145)
[2023-04-08 06:22] VITALS: BP 121/61; PULSE 96; RESP 12; TEMP 36.7; O2SAT 96
[2023-04-08 06:53] LABS: Folate 15.1 ng/mL (> or = 4.0); Vitamin B12 471 pg/mL (200-900)
[2023-04-08 07:58] VITALS: BP 150/78; PULSE 74; RESP 20; TEMP 36.7; O2SAT 97
[2023-04-08] MEDS: 0.9 % Sodium Chloride Flush 3 ML SYRINGE IVFLUSH ×2 (08:00→21:05)
--- NOTE | 2023-04-08 08:06 | PC.NURSE ---
patient resting in bed, ate 100% of his breakfast. patient is alert and oriented. patient states he has no pain. respirations equal and unlabored, skin PWD.
[2023-04-08] MEDS: dexAMETHasone sod phosphate 4 MG/ML VIAL IVPUSH (08:32)
--- NOTE | 2023-04-08 09:03 | PHA.MEDREC ---
Pharmacy Consult ? Medication Reconciliation Pharmacy has completed the medication reconciliation.
--- NOTE | 2023-04-08 11:42 | P.CNNE_ITS ---
History of Present Illness Data of Consult Service Date: 04/08/23 Primary Care Provider: Silvio Kothari MD HPI Reason for consult: Right leg weakness 77 years old man who came to hospital with 3 days history of right leg weakness. There was no obvious trigger or injury. He did not complain of any pain numbness or tingling. He did not complain of any arm or hand pain or weakness or difficulty was speaking. There was no associated cardiac symptom dizziness or visual symptom. Initial head CT was negative when he had a CT of lumbar spine that revealed a possible root compression and now he had a lumbar spine MRI. Review of Systems 2 Review of Systems: No recent cardiac symptom cold or flu-like illness or trauma. [facility] Past Medical History Medical History Vitamin D deficiency Constipation Benign localized hyperplasia of prostate with urinary retention COVID-19 Family History Family History Mother No problems noted. Father No problems noted. Surgical History Surgical History S/P TURP (status post transurethral resection of prostate) (~05/01/22) History of colonoscopy History of cataract surgery History of tonsillectomy History of appendectomy History of umbilical hernia repair History of hernia surgery Social History Housing: House Alcohol intake: former Year quit: 02/06 Patient Tobacco Use Status: Former Tobacco user Quit Date: 1979 Tobacco use type: Cigarette Smoked in Last 30 Days: No e-Cigarette/Vaping Use: Never Used Second Hand Smoke Exposure: No Use of substances other than those prescribed or required for medical reasons: Yes Substance Use Type: Marijuana Advance Directives: No Advance Directives Information Provided: No service: No Current occupational status: retired Cognitive needs: No Hearing needs: No Vision needs: Yes Meds Allergies Allergy/AdvReac Type Severity Reaction Status Date / Time brimonidine [BRIMONIDINE] Allergy Intermediate ITCHING Verified 12/08/22 10:22 Active Medications: Current Medications Acetaminophen (Acetaminophen 325 Mg Tablet) 650 mg PO Q6H PRN PRN Reason: Pain, Mild (Pain Scale 1-3) Enoxaparin Sodium (Enoxaparin Sodium 40 Mg/0.4 Ml Syringe) 40 mg SUBCUT Q24H [facility] Last Admin: 04/08/23 08:35 Dose: Not Given Melatonin (Melatonin 3 Mg Tablet) 6 mg PO BEDTIME PRN PRN Reason: Insomnia Ondansetron HCl (Ondansetron Hcl 4 Mg/2 Ml Vial) 4 mg IVPUSH Q8H PRN PRN Reason: Nausea and Vomiting Sodium Chloride (0.9 % Sodium Chloride Flush 3 Ml Syringe) 3 ml IVFLUSH QSHIFT [facility] Last Admin: 04/08/23 08:00 Dose: 3 ml Home Medications Medication Instructions Recorded Confirmed Last Taken Type ascorbate calcium (vitamin C) 500 1,000 mg PO DAILY 10/30/20 04/08/23 04/07/23 History mg tablet multivitamin 1 tab PO DAILY 04/08/23 04/08/23 04/07/23 History Physical Exam 2 Vital Signs: Vital Signs: Last Vital Signs Temp 98.0 F 04/08/23 07:58 Pulse 74 04/08/23 07:58 Resp 20 04/08/23 07:58 BP 150/78 H 04/08/23 07:58 Pulse Ox 97 04/08/23 07:58 O2 Del Method Room Air 04/08/23 07:58 BMI result Body Mass Index 26.4 Neuro: Other: He is alert and awake with normal spontaneity of speech fluency comprehension and affect. Face is symmetrical. Visual jiménez are full. There is minimal right-sided pronator drift. Right leg and foot is [id number] weak. Right plantar is extensor were left is flexor. Deep tendon reflexes are trace to absent. There is right sensory extinction. Results Labs 04/08/23 05:19 04/08/23 05:19 Labs: Short CBC 04/07/23 04/08/23 Range/Units 22:32 05:19 WBC 7.3 6.9 (4.8-10.8) X10*3/uL Hgb 16.3 15.5 (14.0-18.0) g/dl Hct 47.0 45.0 (42.0-52.0) % Plt Count 193 203 (160-400) X10*3/uL BMP 04/07/23 04/08/23 22:32 05:19 Sodium 140 141 Potassium 3.9 3.8 Chloride 109 H 109 H Carbon Dioxide 25 25 BUN 28 H 26 H Creatinine 1.12 0.98 Calcium 9.5 9.1 Liver Function 04/07/23 Range/Units 22:32 Total Bilirubin 0.9 (0.0-1.0) mg/dL AST 19 (5-37) U/L ALT 20 (0-40) U/L Alkaline Phosphatase 68 (39-117) U/L Albumin 4.0 (3.5-5.0) g/dL Head CT did not reveal any significant abnormality. Assessment and Plan (1) Monoparesis of leg: Status: Acute 77 years old man with new onset of right leg weakness started 2-3 days ago with no pain or trauma. Examination reveals upper motor neuron sign right leg with minimal right-sided drift. Likely etiology is central and more likely in brain that and spinal cord. My recommendation is to obtain noncontrast MRI of brain to rule out any acute infarct. If that is negative MRI of cervical spine is recommended. Lumbar spine finding would not explain the findings on is clinical examination. Procedures Date of Service Date of Service: 04/08/23
--- NOTE | 2023-04-08 13:02 | PC.NURSE ---
patient ambulated to bathroom with steady gait
--- NOTE | 2023-04-08 13:10 | P.PNIM_ITS ---
Subjective Subjective Date of Service: 04/08/23 Interval History: right sided weakness Physical Exam 2 Vital Signs: Vital Signs: Last Vital Signs Temp 98.0 F 04/08/23 07:58 Pulse 74 04/08/23 07:58 Resp 20 04/08/23 07:58 BP 150/78 H 04/08/23 07:58 Pulse Ox 97 04/08/23 07:58 O2 Del Method Room Air 04/08/23 07:58 BMI result Body Mass Index 26.4 rLE 08/20 Objective Data Active Medications Acetaminophen (Acetaminophen 325 Mg Tablet) 650 mg PO Q6H PRN PRN Reason: Pain, Mild (Pain Scale 1-3) Ascorbic Acid (Ascorbic Acid 500 Mg Tablet) 1,000 mg PO DAILY [facility] Enoxaparin Sodium (Enoxaparin Sodium 40 Mg/0.4 Ml Syringe) 40 mg SUBCUT Q24H [facility] Last Admin: 04/08/23 08:35 Dose: Not Given Documented By: ADENIKE Non-Admin Reason: Patient Refused Melatonin (Melatonin 3 Mg Tablet) 6 mg PO BEDTIME PRN PRN Reason: Insomnia Multivitamins/Vitamin C (Multivitamin Tablet) 1 tab PO DAILY [facility] Ondansetron HCl (Ondansetron Hcl 4 Mg/2 Ml Vial) 4 mg IVPUSH Q8H PRN PRN Reason: Nausea and Vomiting Sodium Chloride (0.9 % Sodium Chloride Flush 3 Ml Syringe) 3 ml IVFLUSH QSHIFT [facility] Last Admin: 04/08/23 08:00 Dose: 3 ml Documented By: ADENIKE Vitamin D (Cholecalciferol (Vitamin D3) 25 Mcg Tablet) 50 mcg PO DAILY [facility] Labs 04/08/23 05:19 04/08/23 05:19 Labs: Laboratory Results - last 24 hr 04/07/23 04/08/23 22:32 05:19 MCV 91.1 92.2 MCH 31.6 31.8 MCHC 34.7 34.4 RDW 13.2 13.2 Plt Count 193 203 MPV 9.2 L 9.2 L Immature Gran % (Auto) 0.4 0.1 Neut % (Auto) 55.1 56.3 Lymph % (Auto) 32.8 31.1 Early % (Auto) 8.9 10.2 Eos % (Auto) 2.5 2.0 Baso % (Auto) 0.3 0.3 Lymph # (Auto) 2.4 2.1 Early # (Auto) 0.7 0.7 Eos # (Auto) 0.2 0.1 Baso # (Auto) 0.0 0.0 Abs Immat Gran (auto) 0.03 0.01 Absolute Neuts (auto) 4.1 3.9 Absolute Nucleated RBC 0.000 0.000 Nucleated RBC % (auto) 0.0 0.0 ESR 7 PT 11.6 INR 1.0 Anion Gap 10 L 11 L Estim Creat Clear Calc 60.6 69.3 Estimated GFR > 60 > 60 Random Glucose 169 H 95 Calcium 9.5 9.1 Total Bilirubin 0.9 AST 19 ALT 20 Alkaline Phosphatase 68 Total Protein 7.2 Albumin 4.0 Vitamin B12 471 Folate 15.1 Assessment and Plan (1) Monoparesis of leg: Status: Acute Plan 77M presented with right sided weakness right sided weakness neuro appreciated, follow up mri brain mri lumbar spine with l4 radiculopathy empiric steroids given dvt prophylaxis - lvoenox, full code reason for continued hospitalization:awaiting mri brain Quality Stroke Does the patient have a stroke diagnosis?: No VTE Prior VTE?: No VTE Risk Level:: Medical - moderate - high VTE Device Contraindication: Treatment Not Indicated VTE Drug Contraindication: N/A - Med Ordered
--- NOTE | 2023-04-08 13:31 | MHC.CM.PN ---
Addendum entered by Cherise Escamilla RN 04/08/23 15:41: PATIENT STATUS CHANGED TO I/P. IMM DELIVERED. Original Note: FELICIANO DELIVERED. FROM HOME WITH DTR. INDEPENDENT, NO SERVICES. HCP: STATES DAUGHTER IS PROXY, COPY REQUESTED PCP: JULIO DCP: RECENT WEAKNESS, MAY NEED PT EVAL, NO PREVIOUS VNA OR SNF, BUT OPEN TO VNA IF NEEDED. FAMILY CAN TRANSPORT. CM WILL CONTINUE TO FOLLOW.
--- NOTE | 2023-04-08 13:50 | PC.NURSE ---
patient ate 100% of his lunch. resting quietly in bed, respirations equal and unlabored. patient able to adjust himself in bed, walks with steady gait, able to make needs known, skin PWD
--- NOTE | 2023-04-08 15:00 | CA_ITS ---
Transthoracic Echocardiogram Patient (Last, First, Middle): Jean Marie Bose P Gender: Male Date of : 1945 Age: 77 Procedure Date: 04/08/2023 Procedure Type: Transthoracic Echocardiogram Location: ER Height: 180.34 cm Weight: 85.73 kg BSA: 2.06 m2 Heart Rate: 67 bpm BP: 150 / 70 mmHg Site Engineer: SB Referring MD: Tejas Dawkins MD Message Broker Developer: Redd Rachel MD Symptoms: cva Study Quality: Adequate/limited/no subcostal window ECG Rhythm: Sinus Conclusions: - Limited echo. - Normal left ventricular size, thickness, systolic function, and wall motion. The visually estimated ejection fraction is between 60-65%. - No obvious source of embolic CVA noted. Findings Left Ventricle Normal left ventricular size, thickness, systolic function, and wall motion. The visually estimated ejection fraction is between 60-65%. Aortic Valve There is a normal trileaflet aortic valve. There is mild calcification of the aortic valve. There is trace (trivial) aortic valve regurgitation. Mitral Valve The mitral valve appears normal. Pericardium/Pleural There is no evidence of pericardial effusion. Measurements 2D Linear Measurements IVSd: 0.91 0.6-0.9/0.6-1.0 cm LVIDd: 5.66 3.9-5.3/4.2-5.9 cm LVIDd Index: 2.75 2.4-3.2/2.2-3.1 cm/m2 LVIDs: 3.55 2.0-3.6 cm LVPWd: 0.84 0.7-1.1 cm LV Mass: 234.40 67-162/88-224 g LV Mass Index: 113.79 43-95/49-115 g/m2 LVOT Diam: 2.60 3.0+(-)1.3 cm 2D Systolic Function EF 4C: 58.90 >55% EF 2C: 74.20 >55% EF BiP: 66.80 >55% LVOT LVOT Pk Delfin: 1.30 LVOT Mn Delfin: 0.80 LVOT VTI: 0.22 LVOT Pk Grad: 7.00 LVOT Mn Grad: 3.00 LVOT Diam: 2.60 LVOT Area: 5.31 Updated in Other Vendor System with Status of Final Redd Rachel MD electronically signed on 04/09/2023 2:10:28 PM with status of Final
[2023-04-08] MEDS: Aspirin Enteric Coated 81 MG TABLET.DR PO (15:21)
[2023-04-08 16:15] VITALS: BP 121/62; PULSE 69; RESP 19; O2SAT 94
[2023-04-08] MEDS: iohexoL 350 MG/ML 100 ML INFUS..BTL IV (16:29)
[2023-04-08 18:48] VITALS: BMI 26.7
[2023-04-08 18:55] VITALS: BP 146/79; PULSE 64; RESP 20; TEMP 37; O2SAT 96
--- NOTE | 2023-04-08 20:43 | PM.EVENT ---
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 Pt on ASA, Statin, will order echo and consult vascular surgery Time Spent With Patient Time: Total time managing care of this patient today ____ minutes.
[2023-04-08] MEDS: Atorvastatin Calcium 80 MG TABLET PO (21:02)
[2023-04-08 23:36] VITALS: BP 139/75; PULSE 95; RESP 20; TEMP 36.4; O2SAT 97
--- NOTE | 2023-04-09 00:09 | PC.NURSE ---
Per MD Johnson patient okay to change from Q2 hour neuros to Q4 hour neuros. Neuros have been unchanged since admission. Continues NSR on day care aide. Mild RLE weakness with intermittent numbness/tingling. Able to ambulate without difficulty.
[2023-04-09 03:23] VITALS: BP 138/64; PULSE 93; RESP 20; TEMP 36.3; O2SAT 98
[2023-04-09 07:18] LABS: Estimated Average Glucose 108 mg/dL; Hemoglobin A1c % 5.4 % (<6.0)
[2023-04-09 07:25] LABS: Cholesterol 164 mg/dL (<200); HDL Cholesterol 48 mg/dL (>40); LDL Cholesterol Calculated 103 mg/dL (<100); Triglycerides 69 mg/dL (<150)
[2023-04-09 07:38] VITALS: BP 143/74; PULSE 61; RESP 16; TEMP 36.6; O2SAT 95
[2023-04-09] MEDS: Aspirin Enteric Coated 81 MG TABLET.DR PO (08:57)
[2023-04-09] MEDS: Cholecalciferol (Vitamin D3) 25 MCG TABLET 50 MCG PO (08:57)
[2023-04-09] MEDS: Ascorbic Acid 500 MG TABLET 1000 MG PO (08:57)
[2023-04-09] MEDS: 0.9 % Sodium Chloride Flush 3 ML SYRINGE IVFLUSH (08:58)
[2023-04-09] MEDS: Multivitamin TABLET 1 TAB PO (08:58)
[2023-04-09] MEDS: Clopidogrel Bisulfate 75 MG TABLET PO (10:27)
--- NOTE | 2023-04-09 10:28 | PM.DS ---
DS: Providers Provider Date of Service: 04/09/23 Date of admission: 04/08/23 15:01 Primary care physician: Silvio Kothari MD Consults: 04/08/23 01:21 Consult to Neurology Routine Consulting Provider: [facility] Reason for consultation: lower extremity weakness 04/08/23 20:45 Consult to Vascular Surgery Routine Consulting Provider: [facility] [place] Vascular Services Reason for consultation: ICA occulsion , CVA Has provider been notified: No DS: Diagnosis Discharge Diagnosis (1) Monoparesis of leg: Status: Acute DS: Summary Hospital Course Hospital Course: from initial hpi: 77-year-old male not on any prescription medications who presents to the emergency department for evaluation of right lower extremity weakness. Patient states he 1st noticed it 2 days prior to presentation while he was walking. Patient states he walks twice a day without any assistive devices at baseline. His leg seemed heavy, numb and soon progressed to weakness. Patient states he could not lift his leg off the ground and he was unable to ambulate. His symptoms were progressive over the last 48 hours. No history of similar complaints in the past. No back pain. No other extremity deficit. No facial droop. No bladder or bowel incontinence. Patient denies fever, chills, chest discomfort, palpitations, shortness of breath, abdominal pain, changes in urinary or bowel habits. In the emergency department, imaging with suspected right-sided disc protrusion at L4-L5 hospital course: Patient was admitted for right lower extremity weakness. Initially thought to be due to radiculopathy which is shown on MRI of lumbar spine. However, patient was seen by Neurology who noticed upper motor neuron signs and suspected central etiology. 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 As symptoms started about 2 days prior to presentation patient was out of window for tPA or intravascular intervention. CTA showed evolving acute infarcts of left RICK. Showed of focally occluded distal a 4 branch of the left RICK with reconstitution distally. Also showed occluded right ICA beyond origin and throat the reconstituted supraclinoid segment via the teller of [place]. Patient was started on dual antiplatelet and high-intensity statin. His right lower extremity weakness improved and he was able to ambulate. Echo was done and report is still pending and should be followed up outpatient. Patient demonstrated no speech irregularities or dysphagia. Physical therapy was unavailable due to holiday, patient preferred to follow up outpatient for further therapy. Time Attestation Discharge coordination time: Greater than 30 minutes Quality: Safe Use of Opioids Does Pt have an Active Cancer Diagnosis on the Problem List?: No Quality: Stroke Does the patient have a stroke diagnosis?: Yes Reason for No Anti-thrombotic at DC: N/A - Med Ordered Reason for No Anticoagulant at DC: Drug treatment not indicated Reason Not Initiating IV-Tpa: Drug treatment not indicated Reason for No Anti-thrombotic by Day Two: N/A - Med Ordered Reason for No Statin at DC: N/A - Med Ordered Physical Exam Vital Signs: Vital Signs: Last Vital Signs Temp 97.8 F 04/09/23 07:38 Pulse 61 04/09/23 07:38 Resp 16 04/09/23 07:38 BP 143/74 H 04/09/23 07:38 Pulse Ox 95 04/09/23 07:38 O2 Del Method Room Air 04/09/23 07:38 BMI result Body Mass Index 26.7 rLE 08/20 DS: Data Data Completed and Pending Labs on day of discharge: Laboratory Results - last 24 hr 04/09/23 06:46 Estimat Average Glucose 108 Hemoglobin A1c % 5.4 Triglycerides 69 Cholesterol 164 LDL Cholesterol, Calc 103 H HDL Cholesterol 48 Discharge Plan Discharge Anticipated Discharge Date/Time: 04/09/23 10:22 Patient Disposition: Home, Self-Care Discharge Diagnosis: cva Referrals: Occupational Rehab - [facility] [place] [Outside] - 1 Week (cva) Physical Therapy - [facility] [place] [Outside] - 1 Week (cva) Silvio Kothari MD [Primary Care Provider] - 1 Week Discharge Medications: New atorvastatin 80 mg Tablet 80 mg PO BEDTIME Qty: 30 0RF clopidogrel 75 mg Tablet 75 mg PO DAILY Qty: 30 0RF aspirin 81 mg Tablet,Delayed Release (Dr/Ec) 81 mg PO DAILY Qty: 30 0RF Continued multivitamin Tablet 1 tab PO DAILY ascorbate calcium (vitamin C) 500 mg tablet 1,000 mg PO DAILY cholecalciferol (vitamin D3) 50 mcg (2,000 unit) capsule 50 mcg PO DAILY 90 Days Qty: 90 3RF Discharge Orders: Discharge Order (Routine); Ordered 04/09/23 Ordered By: Tejas Dawkins Diet: Advance to usual diet Activity on Discharge: As tolerated Stand Alone Forms: Patient Portal Discharge page Care Plan Goals: prevent further strokes Health Concerns: acute cva Plan of Treatment: start aspirin, plavix, lipitor, follow up with physical therapy Assessment: see above
--- NOTE | 2023-04-09 11:05 | MHC.CM.PN ---
Patient has been medically cleared for dc to home today, self care.
[2023-04-09 11:19] VITALS: BP 118/57; PULSE 56; RESP 18; TEMP 36.4; O2SAT 95
--- NOTE | 2023-04-09 11:54 | PC.NURSE ---
Patient A&OX4 forgetful, speech clear, face symmetric, tongue midline. Sensation intact at this time. RODRIGUEZ to command 5/5, RLE slightly weaker, +pp bilat no edema noted. Denies pain/discomfort. Denies headache, dizziness or vision changes pupils PERRLA 3B tracks appropriate. LSCTA denies SOB or CP, NSR on tele. BS+X4 abdomen soft non-tender denies nausea/vomiting. OOB with steady gait. Pt provided with education on new meds s/s of stroke and follow up care upon discharge able to teach back needs. IV removed from left arm cath intact. Off unit in wheelchair for discharge.
== END 2023-04-09 11:45 | disposition home or self-care (01) | DRG 66 ==
LOC: HO.ED 04-08 01:27 → HO.EDOVER 04-08 02:31 → HO.IMC 04-08 16:07
PROVIDERS: Admitting Provider Student in an Organized Health Care Education/Training Program; Emergency Provider Internal Medicine; PCP Internal Medicine; Visit Provider Internal Medicine
DX: I63.543 Cerebral infarction due to unspecified occlusion or stenosis of bilateral cerebellar arteries (principal); G83.11 Monoplegia of lower limb affecting right dominant side; R29.702 NIHSS score 2; M48.061 Spinal stenosis, lumbar region without neurogenic claudication; M54.16 Radiculopathy, lumbar region; Z87.891 Personal history of nicotine dependence; Z79.899 Other long term (current) drug therapy
CPT/HCPCS: 36415; 70450; 70496; 70498; 70551; 72131; 72148; 80048; 80053; 80061; 82607; 82746; 83036; 85025; 85610; 85652; 93005; 93308; 99222; 99284; J1100; Q9967

== ENCOUNTER → 2023-04-07 23:08 | Outpatient (BNV) | payer MEDICARE, SELFPAY | PROVIDERS: Emergency Provider Internal Medicine; PCP Internal Medicine; Visit Provider Student in an Organized Health Care Education/Training Program | DX: I69.341 Monoplegia of lower limb following cerebral infarction affecting right dominant side (principal) | CPT/HCPCS: 99222; 99239; 99499 ==

== ENCOUNTER → 2023-04-08 15:00 | Outpatient (BNV) | payer MEDICARE, SELFPAY | PROVIDERS: Admitting Provider Student in an Organized Health Care Education/Training Program; Emergency Provider Internal Medicine; PCP Internal Medicine; Visit Provider Internal Medicine Cardiovascular Disease | DX: I35.8 Other nonrheumatic aortic valve disorders (principal) | CPT/HCPCS: 93308 ==

== ENCOUNTER 2023-04-22 09:36 | Outpatient (RCR) | payer MEDICARE, SELFPAY ==
--- NOTE | 2023-04-22 10:48 | MHC.OT.EP ---
[address] [phone] Occupational Therapy Plan of Care Patient Name: Jean Marie Bose Date of Evaluation: 04/22/23 Diagnosis: Acute CVA Pain Location: Pain: none reported Some low back pain occasionally Aggravating Factors: NA Alleviating Factors: NA Assessment: Jean Marie is a 77-year-old male who presented to the emergency department for evaluation of right lower extremity weakness on 04/08/23. Patient reported he first noticed it 2 days prior to presentation while he was walking. Patient ambulates without any assistive devices at baseline. His leg seemed heavy, numb and soon progressed to weakness. Patient states he could not lift his leg off the ground and he was unable to ambulate. He did not notice any UE deficits, impaired cognition or speech issues. MRI revealed small acute infarcts. Pt. was discharged home on blood thinners with outpatient follow up. On assessment, pt presented very well, denied any pain or UE limitations. Demonstrated full bilateral UE ROM, or scrub tech strength 90# bilaterally, no c/o numbness. Fine motor coordination is WNL's. Pts primary complaint is residual R LE numbess/weakness and he is being seen by PT for this. He has a follow up with PCP tomorrow. At this time, skilled OT services are not warranted. Pt. is in agreement with plan and will continue with PT. Frequency and Duration: The patient will be seen OT eval only Short Term Goals: Pt seen for OT eval only Treatment Plan: Patient Education Eval only. Pt discharged from skilled OT. Electronically Signed By: Carrol Acevedo MS OTR/L Please Sign and return to therapist. Thank you once again for your referral.
== END 2023-04-22 10:49 | disposition home or self-care (01) ==
LOC: HO.OT 09:36
PROVIDERS: PCP Internal Medicine; Visit Provider Internal Medicine
DX: I63.9 Cerebral infarction, unspecified (principal); R53.1 Weakness
CPT/HCPCS: 97165; 97530

== ENCOUNTER 2023-04-23 10:41 | Outpatient (AMB) | payer MEDICARE, SELFPAY ==
[2023-04-23 10:57] VITALS: BP 138/72; PULSE 82; O2SAT 98; BMI 26.3
--- NOTE | 2023-04-23 10:57 | MHC.PC.OV ---
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 Accompanied by: Self / Same As Patient Allergies brimonidine [BRIMONIDINE] Allergy (Intermediate, Verified 04/23/23 12:07) ITCHING Medication List - Last Reconciled 04/23/23 by Silvio Kothari MD ascorbate calcium (vitamin C) 1,000 mg PO DAILY aspirin 81 mg PO DAILY atorvastatin 80 mg PO BEDTIME cholecalciferol (vitamin D3) 50 mcg PO DAILY 90 days clopidogrel 75 mg PO DAILY multivitamin 1 tab PO DAILY Tobacco use date assessed: 04/23/23 Fall risk assessment: No Falls in past year Last assessed Fall Risk: 04/23/23 Dental Screening Dental Screen Date: 04/23/23 Did you have a dental visit in the last 12 months?: No Did you have a dental problem in the last 6 months where you did not have access to dental care?: No Was dental information given to patient?: Patient has dentist HPI ED follow up HPI Details Patient comes in today for his HDF follow up visit He [place] [facility] [place] he presented to the ER a couple of weeks ago for progressing weakness and numbness of his right lower extremity over a couple of days An MRI of the lumbar spine done revealed (+) lateral disc osteophyte protrusions contact the extraforaminal L5 nerve roots bilaterally at L5-S1. There are right paracentral/right lateral disc protrusions at a couple of other levels that compresses the traversing right L5 nerve root within the right subarticular zone and that results in moderate to severe right-sided foraminal stenosis with mass effect on the foraminal and extraforaminal segments of the exiting right L4 nerve root It was initially thought that his symptoms were from his lower back but neurology was consulted and they noticed some upper motor neuron signs and suspected a central etiology to his symptoms An MRI of the brain was done which revealed acute few, small CVA in the left RICK territory Patient was deemed not a candidate for tPA or intravascular intervention as his symptoms were at least 2 days old CTA revealed evolving acute infarcts of the left RICK He was immediately started on dual antiplatelet therapy and high-intensity statin His right lower extremity weakness gradually improved and he was able to get up and move around and he was discharged home with referral to physical therapy, which patient is currently still receiving States that he is presently feeling okay He denies any headaches or dizziness Denies any dysphagia or trouble swallowing is; he does not have any speech irregularities He denies any chest pains, no shortness of breath No nausea/vomiting, no abdominal pain No change in bowel habits noted States that he will need a couple of his Rx refilled if he is to continue on his current medications [facility] Medical History Vitamin D deficiency Constipation Benign localized hyperplasia of prostate with urinary retention COVID-19 Surgical History S/P TURP (status post transurethral resection of prostate) (~05/01/22) History of colonoscopy History of cataract surgery History of tonsillectomy History of appendectomy History of umbilical hernia repair History of hernia surgery Family History Mother No problems noted. Father No problems noted. Social History Household Members: Children Housing: House Do you presently have visiting nurse or other home services: No Alcohol intake: former Year quit: 02/06 Patient Tobacco Use Status: Former Tobacco user Quit Date: 1979 Tobacco use type: Cigarette e-Cigarette/Vaping Use: Never Used Second Hand Smoke Exposure: No Substance Use Type: Marijuana service: No Current occupational status: retired Cognitive needs: No Hearing needs: No Vision needs: Yes Questionnaire PHQ-9 Over the last 2 weeks, how often have you been bothered by any of the following problems? 1. Little interest or pleasure in doing things: not at all 2. Feeling down, depressed, or hopeless: not at all 3. Trouble falling or staying asleep, or sleeping too much: not at all 4. Feeling tired or having little energy: not at all 5. Poor appetite or overeating: not at all 6. Feeling bad about yourself - or that you are a failure or have let yourself or your family down: not at all 7. Trouble concentrating on things, such as reading the newspaper or watching television: not at all 8. Moving or speaking so slowly that other people could have noticed. Or the opposite - being so fidgety or restless that you have been moving around a lot more than usual: not at all 9. Thoughts that you would be better off or of hurting yourself in some way: not at all Total score: 0 Depression Screening Interpretation: Negative Depression Screening Done: Yes 15920 - PHQ-9 Billing: Yes Source: Developed by Drs. Rory Garay, Jackie Guzman, Uvaldo Milian and colleagues, with an educational lakia from [employer]. Thrive Questionnaire Date Thrive assessed: 04/23/23 I am a: Patient What is your living situation today?: I have a steady place to live Within the past 12 months, did the food you bought not last and you didn't have the money to get more?: Never true Within the past 12 months, did you worry whether your food would run out before you got money to buy more?: Never true Do you have trouble paying for medicines?: No Do you have trouble getting transportation to medical appointments?: No Do you have trouble paying your heating and electricity bill?: No Do you have trouble taking care of your child, family member or friend?: No Do you have trouble with day-to-day activities such as bathing, preparing meals, shopping, managing finances, etc.?: No Are you currently unemployed and looking for a job?: No Are you interested in more education?: No Please select the resources that you would like help with: None Currently or been in a relationship where the following occur: no concerns reported AUDIT C Alcohol Use Questionnaire (AUDIT-C) 1. How often do you have a drink containing alcohol?: Never 3. How often do you have six or more drinks on one occasion?: Never Total Score: 0 Score Reviewed/Action Taken: Yes TANGELA-7 AMB Questionnaire TANGELA-7 Date TANGELA - 7 assessed: 04/23/23 Feeling nervous, anxious, or on edge: 0 = Not at all Not being able to stop or control worryin = Not at all Worrying too much about different things: 0 = Not at all Trouble relaxin = Not at all Being so restless that it is hard to sit still: 0 = Not at all Becoming easily annoyed or irritable: 0 = Not at all Feeling afraid as if something awful might happen: 0 = Not at all Total TANGELA-7 score (0-4 normal; 5-9 mild; 10-14 moderate; 15-21 severe): 0 Source: Developed by Drs. Rory Garay, Jackie Guzman, Uvaldo Milian and colleagues, with an educational lakia from [employer]. TANGELA-7 Assessment Billing TANGELA-7 Assessment Tool: TANGELA-7 Assessment 31060 Review of Systems Const Denies chills, Denies fatigue, Denies fever(s), Denies headache(s) and Reports weakness (of the right lower extremity - mild) Eyes Denies blurry vision ENT Denies dysphagia, Denies dizziness, Denies otalgia, Denies headache(s), Denies nasal congestion, Denies odynophagia and Denies sore throat Card Denies chest pain, Denies palpitations and Denies dyspnea Resp Denies cough, Denies dyspnea and Denies wheezing GI Denies abdominal pain, Denies constipation, Denies dysphagia, Denies heartburn, Denies diarrhea, Denies nausea, Denies odynophagia and Denies vomiting Denies dysuria, Denies nocturia and Denies urinary frequency Musc Denies back pain Skin/Breast Denies rash Neuro Denies dizziness, Denies headache(s) and Reports weakness (of the right lower extremity - mild) Endo Denies fatigue and Denies palpitations Aller/Immun Denies wheezing Physical exam (Primary Care) Vital Signs: Last Vital Signs Pulse 82 04/23/23 10:57 BP 138/72 04/23/23 10:57 Pulse Ox 98 04/23/23 10:57 Oxygen Delivery Method Room Air 04/23/23 10:57 BMI result Body Mass Index 26.3 Tobacco/Smoking Status: Tobacco use Status Tobacco use date assessed 04/23/23 04/23/23 10:59 Patient Tobacco Use Status Former Tobacco user 04/23/23 10:59 Tobacco use type Cigarette 04/23/23 10:59 e-Cigarette/Vaping Use Never Used 04/23/23 10:59 PHQ-9: PHQ-9 Score PHQ-9: Total score 0 12/08/23 09:45 Depression Screening Interpretation: Negative Thrive Assessment: Date of Thrive Assessment Date Thrive assessed 04/23/23 04/23/23 10:59 Currently or been in a relationship where the following occur: no concerns reported Const General: no acute distress and alert Orientation/consciousness: patient oriented x3 HENMT Ears: TM's normal bilaterally and EAC's normal Throat: Yes posterior oropharynx normal and Yes tonsils normal (no TP congestion) Eyes EOM: EOMs intact bilaterally and No Nystagmus present Neck Neck: Yes no lymphadenopathy and Yes supple Thyroid: Thyroid normal Carotids: no bruits Resp Auscultation: clear to auscultation bilaterally, no rales and no wheezes Cardio Rate: regular rate Rhythm: regular rhythm Heart sounds: no murmurs Peripheral pulses: Peripheral pulses 2+ throughout GI Palpation (GI): Soft to palpation and nontender Auscultation: normal bowel sounds General: Yes no CVA tenderness Back/Spine/Pelvis Back: no CVA tenderness Thoracic/Lumbar Spine: lumbar spinal tenderness (minimal) Skin Rashes: no rashes Neuro Other: (+) mild weakness of the right lower extremity General: patient oriented x3, moves all extremities and CN's II-XI intact bilaterally Cranial nerves: No Nystagmus present Cognition (Neuro): normal cognition Extrem General: Yes no clubbing, cyanosis or edema Assessment and Plan Assessment & Plan (1) Acute CVA (cerebrovascular accident): Code(s): I63.9 - Cerebral infarction, unspecified Plan: Brain MRI done a couple of weeks ago on 04/08/2023 revealed (+) few small acute infarcts within the left RICK territory involving the left cingulate gyrus and the left parasagittal frontal lobe, the latter at the high convexity at the level of the left frontal precentral gyrus. There is no mass effect and there is no hemorrhagic transformation. Absent right internal carotid artery flow void suggesting slow flow within versus occlusion of the right internal carotid artery which would be better assessed with a CTA of the head and neck. There is global cerebral volume loss and there is mild to moderate chronic microangiopathy Continue Aspirin 81 mg QD and Clopidogrel 75 mg QD - Rx refilled Will refer him to physical therapy for further management / strengthening of his right lower extremity weakness Will also refer him to neurology for further evaluation and management (2) Right internal carotid occlusion: Code(s): I65.21 - Occlusion and stenosis of right carotid artery Plan: CTA of the head and neck done a couple of weeks ago revealed evolving acute infarcts in the left RICK territory although these were better appreciated on his MRI. No significant mass effect or hemorrhagic transformation and no new territorial loss of monte-white differentiation are seen. (+) focally occluded distal A4 branch of the left RICK with reconstitution distally and occluded right ICA just beyond its origin and throughout the reconstituted supraclinoid segment via of the [place] Patient is advised to continue on dual antiplatelet therapy with Aspirin and Clopidogrel Continue also on high-dose statin - Atorvastatin 80 mg QD (Rx refilled) Will have patient recheck his labs and fasting lipids next month for follow up May need to refer him to vascular surgery for this but will wait and see what neurology would recommend first (3) Bradycardia: Code(s): R00.1 - Bradycardia, unspecified Plan: This appears to have resolved currently EKG done a few months ago revealed (+) sinus bradycardia (HR of around 58 bpm), with non-specific intra-ventricular conduction delay and minimal voltage criteria for LVH, may be normal variant (Sergio product) Echocardiogram done in December 2022 came out normal - the left ventricular systolic function is normal. The calculated ejection fraction is 57% by biplane method. There is mild calcification of the aortic valve but no obvious valvular pathology was seen on this study (4) Elevated fasting glucose: Code(s): R73.01 - Impaired fasting glucose Plan: His FBS was slightly elevated on his previous labs but his HgbA1c came back normal at 5.2% when checked Reinforced low calorie diet /exercise as tolerated (5) Vitamin D deficiency: Code(s): E55.9 - Vitamin D deficiency, unspecified Plan: Continue Vitamin D3 2000 units QD (6) Rosacea: Code(s): L71.9 - Rosacea, unspecified Plan: Continue Clindamycin 1% apply to rash on face QD Follow up with dermatology as scheduled (7) Benign localized hyperplasia of prostate with urinary retention: Code(s): N40.1 - Benign prostatic hyperplasia with lower urinary tract symptoms; R33.8 - Other retention of urine Plan: S/P TURP in April 2022 Recent biopsy showed no malignancy on pathology Follow up with urology as scheduled Plan Follow up as scheduled in May 2023 Orders: Orders PT Evaluation and Treatment 04/23/23 M51.16 - Intervertebral disc disorders with radiculopathy, lumbar region Comprehensive [place]. Panel Fast 06/01/23 E78.00 - Pure hypercholesterolemia, unspecified Lipid Panel 06/01/23 E78.00 - Pure hypercholesterolemia, unspecified Referrals Neurology Referral I63.9 - Cerebral infarction, unspecified Medications: Changed From atorvastatin 80 mg PO BEDTIME 30 tabs 0RF To atorvastatin 80 mg PO BEDTIME 90 days 90 tabs 1RF From clopidogrel 75 mg PO DAILY 30 tabs 0RF To clopidogrel 75 mg PO DAILY 90 days 90 tabs 0RF Coding Level of Care Code Est Pt Level 4 (76800) Diagnoses Acute CVA (cerebrovascular accident) I63.9 Right internal carotid occlusion I65.21 Bradycardia R00.1 Elevated fasting glucose R73.01 Vitamin D deficiency E55.9 Rosacea L71.9 Benign localized hyperplasia of prostate with urinary retention N40.1; R33.8 Additional Codes TANGELA-7 Assessment Billing - TANGELA-7 Assessment Tool: TANGELA-7 Assessment 02655 ([id number])
== END 2023-04-23 12:25 | disposition home or self-care (01) ==
PROVIDERS: PCP Internal Medicine; Visit Provider Internal Medicine
DX: I63.9 Cerebral infarction, unspecified (principal); I65.21 Occlusion and stenosis of right carotid artery; R00.1 Bradycardia, unspecified; R73.01 Impaired fasting glucose; E55.9 Vitamin D deficiency, unspecified; L71.9 Rosacea, unspecified; N40.1 Benign prostatic hyperplasia with lower urinary tract symptoms; R33.8 Other retention of urine
CPT/HCPCS: 99214

== ENCOUNTER 2023-05-07 11:00 | Outpatient (RCR) | payer MEDICARE, SELFPAY ==
[2023-04-20 09:50] VITALS: BP 144/67; PULSE 68; RESP 14; O2SAT 98
--- NOTE | 2023-05-19 12:03 | MHC.PT.DC ---
[facility] [place] [facility] [place] [facility] [place] [facility] [address] [place] [address] [phone] F: [phone] F: [phone] F: [phone] F: [phone] Physical Therapy Discharge Report Diagnosis: Acute CVA Date of Surgery: Date of Evaluation: 04/20/23 Date of Discharge: 05/07/23 Treatments to Date: 3 Cancellations to Date: 2 No Shows to Date: Discharge Status: Achieved Goals Improved Function Patient Elected to Stop Recommend MD Follow-up Discharge Summary: Pt participated in 3 PT treatment sessions s/p CVA for LE weakness. Pt scored very high on LEFS and had no difficulty with the balance and resistance exercises. Pt reports he feels like he is at his baseline physically at this time, but still is having word finding issues and some trouble following directions/memory. D/C from PT at this time, pt in agreement. Recommend f/u with MD re: referral to cognitive/speech therapy. Electronically signed by: Diane Smart PT, DPT Please sign and return to therapist. Thank you for your referral.
== END 2023-05-19 12:04 | disposition home or self-care (01) ==
LOC: HO.PT 11:00
PROVIDERS: PCP Internal Medicine; Visit Provider Internal Medicine
DX: I63.9 Cerebral infarction, unspecified (principal); R53.1 Weakness
CPT/HCPCS: 97110; 97112; 97162

== ENCOUNTER 2023-06-08 14:07 | Outpatient (REF) | payer MEDICARE, SELFPAY ==
[2023-06-08 16:12] LABS: Alanine Aminotransferase 34 U/L (0-40); Albumin Level 4.2 g/dL (3.5-5.0); Alkaline Phosphatase 91 U/L (39-117); Anion Gap 13 (12-20); Aspartate Amino Transferase 25 U/L (5-37); Bilirubin Total 1.4 mg/dL (0.0-1.0); Blood Urea Nitrogen 15 mg/dL (9-16); Calcium 9.6 mg/dL (8.4-10.2); Carbon Dioxide 28 mmol/L (22-29); Chloride 105 mmol/L (96-108); Cholesterol 100 mg/dL (<200); Estimated Glomerular Filt Rate > 60; Glucose Fasting 85 mg/dL (60-99); HDL Cholesterol 41 mg/dL (>40); LDL Cholesterol Calculated 38 mg/dL (<100); Sodium 142 mmol/L (135-145); Total Protein 7.2 g/dL (6.5-8.0); Triglycerides 108 mg/dL (<150)
== END 2023-06-08 14:08 | disposition home or self-care (01) ==
LOC: HO.LAB 14:07
PROVIDERS: PCP Internal Medicine; Visit Provider Internal Medicine
DX: E78.00 Pure hypercholesterolemia, unspecified (principal)
CPT/HCPCS: 36415; 80053; 80061

== ENCOUNTER 2023-06-10 08:37 | Outpatient (AMB) | payer MEDICARE, SELFPAY ==
[2023-06-10 08:40] VITALS: BP 122/80; PULSE 89; O2SAT 92; BMI 26.4
--- NOTE | 2023-06-10 08:40 | A.OFFPC_ITS ---
Vital Signs 06/10/23 08:40 Height 5 ft 11 in Weight 189 lb BMI 26.4 BP 122/80 Blood Pressure Location Lt brachial Position Sitting Pulse 89 Pulse Source Pulse Oximeter Pulse Oximetry (%) 92 Oxygen Delivery Method Room Air Intake Visit Reasons: dizziness, bradycardia Veterinary Epidemiologist Required: No Accompanied by: Self / Same As Patient Allergies brimonidine [BRIMONIDINE] Allergy (Intermediate, Verified 06/10/23 08:57) ITCHING Medication List - Last Reconciled 06/10/23 by Silvio Kothari MD ascorbate calcium (vitamin C) 1,000 mg PO DAILY aspirin 81 mg PO DAILY atorvastatin 80 mg PO BEDTIME 90 days cholecalciferol (vitamin D3) 50 mcg PO DAILY 90 days clopidogrel 75 mg PO DAILY 90 days multivitamin 1 tab PO DAILY Tobacco use date assessed: 06/10/23 Fall risk assessment: No Falls in past year Last assessed Fall Risk: 06/10/23 Dental Screening Dental Screen Date: 06/10/23 Did you have a dental visit in the last 12 months?: No Did you have a dental problem in the last 6 months where you did not have access to dental care?: No Was dental information given to patient?: No HPI dizziness, bradycardia HPI Details Patient comes in today for his follow up visit States that he feels okay He denies any headaches or dizziness Denies any chest pains, no SOB No nausea/vomiting, no abdominal pain No change in bowel habits noted He completed physical therapy at the beginning of the month and feels that his right leg (strength) is back to his baseline - states that he is walking with no difficulty Still has some trouble with word recall and states that it often takes him a while to be able to find the right words to say but thinks that he has been this way all his life and that this may not necessarily be due to his recent stroke Had his follow up labs done a couple of days ago - to discuss his results [facility] Medical History (Updated 06/10/23 @ 09:01 by Silvio Kothari MD) Lumbar disc herniation with radiculopathy Acute CVA (cerebrovascular accident) Vitamin D deficiency Constipation Benign localized hyperplasia of prostate with urinary retention COVID-19 Surgical History S/P TURP (status post transurethral resection of prostate) (~05/01/22) History of colonoscopy History of cataract surgery History of tonsillectomy History of appendectomy History of umbilical hernia repair History of hernia surgery Family History Mother No problems noted. Father No problems noted. Social History Household Members: Children Housing: House Do you presently have visiting nurse or other home services: No Alcohol intake: former Year quit: 02/06 Patient Tobacco Use Status: Former Tobacco user Quit Date: 1979 Tobacco use type: Cigarette e-Cigarette/Vaping Use: Never Used Second Hand Smoke Exposure: No Substance Use Type: Marijuana service: No Current occupational status: retired Cognitive needs: No Hearing needs: No Vision needs: Yes Questionnaire PHQ-9 Over the last 2 weeks, how often have you been bothered by any of the following problems? 1. Little interest or pleasure in doing things: not at all 2. Feeling down, depressed, or hopeless: not at all 3. Trouble falling or staying asleep, or sleeping too much: not at all 4. Feeling tired or having little energy: not at all 5. Poor appetite or overeating: not at all 6. Feeling bad about yourself - or that you are a failure or have let yourself or your family down: not at all 7. Trouble concentrating on things, such as reading the newspaper or watching television: not at all 8. Moving or speaking so slowly that other people could have noticed. Or the opposite - being so fidgety or restless that you have been moving around a lot more than usual: not at all 9. Thoughts that you would be better off or of hurting yourself in some way: not at all Total score: 0 Depression Screening Interpretation: Negative Depression Screening Done: Yes 72212 - PHQ-9 Billing: Yes Source: Developed by Drs. Rory Garay, Jackie Guzman, Uvaldo Milian and colleagues, with an educational lakia from [employer]. Thrive Questionnaire Date Thrive assessed: 06/10/23 I am a: Patient What is your living situation today?: I have a steady place to live Within the past 12 months, did the food you bought not last and you didn't have the money to get more?: Never true Within the past 12 months, did you worry whether your food would run out before you got money to buy more?: Never true Do you have trouble paying for medicines?: No Do you have trouble getting transportation to medical appointments?: No Do you have trouble paying your heating and electricity bill?: No Do you have trouble taking care of your child, family member or friend?: No Do you have trouble with day-to-day activities such as bathing, preparing meals, shopping, managing finances, etc.?: No Are you currently unemployed and looking for a job?: No Are you interested in more education?: No Please select the resources that you would like help with: None Currently or been in a relationship where the following occur: no concerns reported THRIVE Score: 0 AUDIT C Alcohol Use Questionnaire (AUDIT-C) 1. How often do you have a drink containing alcohol?: Never 3. How often do you have six or more drinks on one occasion?: Never Total Score: 0 Score Reviewed/Action Taken: Yes TANGELA-7 AMB Questionnaire TANGELA-7 Date TANGELA - 7 assessed: 06/10/23 Feeling nervous, anxious, or on edge: 0 = Not at all Not being able to stop or control worryin = Not at all Worrying too much about different things: 0 = Not at all Trouble relaxin = Not at all Being so restless that it is hard to sit still: 0 = Not at all Becoming easily annoyed or irritable: 0 = Not at all Feeling afraid as if something awful might happen: 0 = Not at all Total TANGELA-7 score (0-4 normal; 5-9 mild; 10-14 moderate; 15-21 severe): 0 Source: Developed by Drs. Rory Garay, Jackie Guzman, Uvaldo Milian and colleagues, with an educational lakia from [employer]. TANGELA-7 Assessment Billing TANGELA-7 Assessment Tool: TANGELA-7 Assessment 93162 Review of Systems Const Denies chills, Denies fatigue, Denies fever(s), Denies headache(s) and Denies weakness Eyes Denies blurry vision ENT Denies dysphagia, Denies dizziness, Denies otalgia, Denies headache(s), Denies nasal congestion, Denies odynophagia and Denies sore throat Card Denies chest pain, Denies palpitations and Denies dyspnea Resp Denies cough, Denies dyspnea and Denies wheezing GI Denies abdominal pain, Denies constipation, Denies dysphagia, Denies heartburn, Denies diarrhea, Denies nausea, Denies odynophagia and Denies vomiting Denies dysuria, Denies nocturia and Denies urinary frequency Musc Denies back pain and Denies muscle weakness Skin/Breast Denies rash Neuro Denies Abnormal speech present (but still has some trouble with word recall ), Denies dizziness, Denies headache(s) and Denies weakness Endo Denies fatigue and Denies palpitations Aller/Immun Denies wheezing Physical exam (Primary Care) Vital Signs: Last Vital Signs Pulse 89 06/10/23 08:40 BP 122/80 06/10/23 08:40 Pulse Ox 92 06/10/23 08:40 Oxygen Delivery Method Room Air 06/10/23 08:40 BMI result Body Mass Index 26.4 Tobacco/Smoking Status: Tobacco use Status Tobacco use date assessed 06/10/23 06/10/23 08:47 Patient Tobacco Use Status Former Tobacco user 06/10/23 08:47 Tobacco use type Cigarette 06/10/23 08:47 e-Cigarette/Vaping Use Never Used 06/10/23 08:47 PHQ-9: PHQ-9 Score PHQ-9: Total score 0 06/10/23 08:47 Depression Screening Interpretation: Negative Thrive Assessment: Date of Thrive Assessment Date Thrive assessed 06/10/23 06/10/23 08:47 Currently or been in a relationship where the following occur: no concerns reported Const General: no acute distress and alert HENMT Ears: TM's normal bilaterally and EAC's normal Throat: Yes posterior oropharynx normal and Yes tonsils normal (no TP congestion) Neck Neck: Yes no lymphadenopathy and Yes supple Thyroid: Thyroid normal Carotids: no bruits Resp Auscultation: clear to auscultation bilaterally, no rales and no wheezes Cardio Rate: regular rate Rhythm: regular rhythm Heart sounds: no murmurs GI Palpation (GI): Soft to palpation and nontender Auscultation: normal bowel sounds General: Yes no CVA tenderness Back/Spine/Pelvis Back: no CVA tenderness Thoracic/Lumbar Spine: lumbar spinal tenderness (minimal) Skin Rashes: no rashes Neuro General: moves all extremities Speech: No Abnormal speech present (but still has some trouble with word recall ) Extrem General: Yes no clubbing, cyanosis or edema Results Reviewed Results Reviewed: Laboratory Tests 06/08/23 14:24 Sodium 142 Potassium 4.0 Creatinine 0.94 Estimated GFR > 60 Fasting Glucose 85 Calcium 9.6 Total Bilirubin 1.4 H AST 25 ALT 34 Triglycerides 108 Cholesterol 100 LDL Cholesterol, Calc 38 HDL Cholesterol 41 Laboratory Tests 04/09/23 06:46 Triglycerides 69 Cholesterol 164 LDL Cholesterol, Calc 103 H HDL Cholesterol 48 Assessment and Plan Assessment & Plan (1) Acute CVA (cerebrovascular accident): Code(s): I63.9 - Cerebral infarction, unspecified Plan: Brain MRI done on 04/08/2023 revealed (+) few small acute infarcts within the left RICK territory involving the left cingulate gyrus and the left parasagittal frontal lobe, the latter at the high convexity at the level of the left frontal precentral gyrus. There is no mass effect and there is no hemorrhagic transformation. Absent right internal carotid artery flow void suggesting slow flow within versus occlusion of the right internal carotid artery which would be better assessed with a CTA of the head and neck. There is global cerebral volume loss and there is mild to moderate chronic microangiopathy CTA of the head and neck done subsequently revealed (+) evolving acute infarcts in the left RICK territory Continue Aspirin 81 mg QD and Clopidogrel 75 mg QD He was referred to neurology and is scheduled to be seen on 07/17/2023 States that he also completed physical therapy recently and feels that his right leg is back to his baseline He continues to have some word finding difficulty/recall and has been referred to the speech center for speech and cognitive therapy and is still awaiting his appt but he also mentioned that he may have been this way all his life and this may not necessarily have anything to do with his recent CVA (2) Right internal carotid occlusion: Code(s): I65.21 - Occlusion and stenosis of right carotid artery Plan: CTA of the head and neck done a couple of weeks ago revealed evolving acute i nfarcts in the left RICK territory although these were better appreciated on his MRI. No significant mass effect or hemorrhagic transformation and no new territorial loss of monte-white differentiation are seen. (+) focally occluded distal A4 branch of the left RICK with reconstitution distally and occluded right ICA just beyond its origin and throughout the reconstituted supraclinoid segment via of the little traverse of [place] Patient is advised to continue on dual antiplatelet therapy with Aspirin and Clopidogrel and on high-dose statin (Atorvastatin 80 mg) His follow up labs done a couple of days ago showed (+) significant reduction in his cholesterol levels May need to refer him to vascular surgery for this but will wait and see what neurology would recommend first (3) Bradycardia: Code(s): R00.1 - Bradycardia, unspecified Plan: This appears to have resolved and has not recurred recently EKG done a few months ago revealed (+) sinus bradycardia (HR of around 58 bpm), with non-specific intra-ventricular conduction delay and minimal voltage crite estephanie for LVH, may be normal variant ([place] product) Echocardiogram done in December 2022 came out normal - the left ventricular systolic function is normal. The calculated ejection fraction is 57% by biplane method. There is mild calcification of the aortic valve but no obvious valvular pathology was seen on this study (4) Elevated fasting glucose: Code(s): R73.01 - Impaired fasting glucose Plan: His FBS was slightly elevated on his previous labs but his HgbA1c came back normal at 5.2% when checked a few weeks ago Reinforced low calorie diet /exercise as tolerated (5) Vitamin D deficiency: Code(s): E55.9 - Vitamin D deficiency, unspecified Plan: Continue Vitamin D3 2000 units QD (6) Rosacea: Code(s): L71.9 - Rosacea, unspecified Plan: Continue Clindamycin 1% apply to rash on face QD Follow up with dermatology as scheduled (7) Benign localized hyperplasia of prostate with urinary retention: Code(s): N40.1 - Benign prostatic hyperplasia with lower urinary tract symptoms; R33.8 - Other retention of urine Plan: S/P TURP in April 2022 Recent biopsy showed no malignancy on pathology Follow up with urology as scheduled Plan To return as scheduled on November 10, 2023 for his annual physical examination Patient is reminded to get his follow up labs done prior to his appt date Orders: Orders Complete Blood Count Auto Diff 10/31/23 D64.9 - Anemia, unspecified Lipid Panel 10/31/23 E78.00 - Pure hypercholesterolemia, unspecified TSH reflex Free T4 10/31/23 E78.00 - Pure hypercholesterolemia, unspecified UA CC w/rflx Micro + Cult 10/31/23 R30.0 - Dysuria Vitamin B12 and Folate 10/31/23 E53.8 - Deficiency of other specified B group vitamins Prostate Specific Antigen Scr 10/31/23 Z00.00 - Encounter for general adult medical examination without abnormal findings Comprehensive [place]. Panel Fast 10/31/23 E78.00 - Pure hypercholesterolemia, unspecified Vitamin D 25-OH Total 10/31/23 E55.9 - Vitamin D deficiency, unspecified Coding Level of Care Code Est Pt Level 4 (81059) Diagnoses Acute CVA (cerebrovascular accident) I63.9 Right internal carotid occlusion I65.21 Bradycardia R00.1 Elevated fasting glucose R73.01 Vitamin D deficiency E55.9 Rosacea L71.9 Benign localized hyperplasia of prostate with urinary retention N40.1; R33.8 Additional Codes TANGELA-7 Assessment Billing - TANGELA-7 Assessment Tool: TANGELA-7 Assessment 88104 ([id number])
== END 2023-06-10 09:22 | disposition home or self-care (01) ==
PROVIDERS: PCP Internal Medicine; Visit Provider Internal Medicine
DX: R00.1 Bradycardia, unspecified (principal); R42 Dizziness and giddiness; I65.21 Occlusion and stenosis of right carotid artery; R73.01 Impaired fasting glucose; E55.9 Vitamin D deficiency, unspecified; L71.9 Rosacea, unspecified; N40.1 Benign prostatic hyperplasia with lower urinary tract symptoms; R33.8 Other retention of urine
CPT/HCPCS: 99214

== ENCOUNTER 2023-07-17 09:46 | Outpatient (AMB) | payer MEDICARE, SELFPAY ==
--- NOTE | 2023-07-17 09:49 | A.OFFVIS_ITS ---
Intake Vital Signs 07/17/23 09:57 Height 5 ft 11 in Weight 193 lb 8 oz BMI 27.0 BP 122/70 Blood Pressure Location Lt brachial Position Sitting Pulse 67 Pulse Source Pulse Oximeter Pulse Oximetry (%) 97 Oxygen Delivery Method Room Air Intake Visit Reasons: I-PIG IR[employer] LOADER: Cerebral infarction - Confirmed Intake Note: Patient presents for Cerebral infarction. Allergies brimonidine [BRIMONIDINE] Allergy (Intermediate, Verified 07/17/23 09:55) ITCHING HPI HPI Comments History of Present Illness Details 78 y/o male patient presents for new in- person visit for s/p CVA. Pt reports he had a CVA in March,. Pt experienced progressing weakness and numbness on his right leg over couple of days. It was initially thought that the symptoms related to his lower back. MRI of lumbar result was lateral disc osteophyte protrusions contact the extraforaminal L5 nerve roots bilaterally at L5-S1. There are right paracentral/right lateral disc protrusions at a couple of other levels that compresses the traversing right L5 nerve root within the right subarticular zone and that results in moderate to severe right-sided foraminal stenosis with mass effect on the foraminal and extraforaminal. Brain MRI was done which reveled acute few, small CVA in the left RICK territory. Pt was deemed not a candidate for tPA or intravascular intervention as his sympt oms were at least 2 days old. Pt started aspirin 81 mg, clopidogrel 75 mg and atorvastatin 80 mg. Pt reports the right lower extremities weakness improved, and has no difficulty walking, but can have leg muscle cramping right > left. Muscle cramping happens mroe when he sleep, and it wakes him up. Pt reports snoring, and disrupted sleep, he wakes up frequently in the middle of night, tosses and turns. He usually takes a nap but gets tired early evening. [facility] Medical History (Updated 07/27/23 @ 20:04 by Lorene Cazares CNP) Lumbar disc herniation with radiculopathy Acute CVA (cerebrovascular accident) Vitamin D deficiency Constipation Benign localized hyperplasia of prostate with urinary retention COVID-19 Surgical History S/P TURP (status post transurethral resection of prostate) (~05/01/22) History of colonoscopy History of cataract surgery History of tonsillectomy History of appendectomy History of umbilical hernia repair History of hernia surgery Family History Mother No problems noted. Father No problems noted. Social History Household Members: Children Housing: House Do you presently have visiting nurse or other home services: No Alcohol intake: former Year quit: 02/06 Patient Tobacco Use Status: Former Tobacco user Quit Date: 1979 Tobacco use type: Cigarette e-Cigarette/Vaping Use: Never Used Second Hand Smoke Exposure: No Substance Use Type: Marijuana service: No Current occupational status: retired Cognitive needs: No Hearing needs: No Vision needs: Yes Review of Systems Const All systems reviewed & are unremarkable except as noted in HPI and below Physical Exam Vital Signs: Last Vital Signs Pulse 67 07/17/23 09:57 BP 122/70 07/17/23 09:57 Pulse Ox 97 07/17/23 09:57 Oxygen Delivery Method Room Air 07/17/23 09:57 BMI result Body Mass Index 27.0 Const General: cooperative Nutritional Appearance: overweight Orientation/consciousness: patient oriented x3 Limitations: no limitations Neck Neck: Yes full ROM and Yes supple Resp Effort & Inspection: normal respiratory effort and able to speak in complete sentences Neuro General: patient oriented x3, gait normal, moves all extremities and CN's II-XI intact bilaterally Cranial nerves: Yes CN's II-XII intact bilaterally and Yes Normal facial strength present Gait exam (Neuro): Normal gait present Motor exam (neuro): 5/5 motor strength present throughout Deep tendon reflexes (DTR's): Rt Biceps (C5, C6): 2+, Left biceps reflex intensity grade: 2+, Right brachioradialis reflex intensity grade: 2+ and Left brachioradialis reflex intensity grade: 2+ Psych Appearance: grossly normal Mental Status: mental status grossly normal Speech and movement: Normal speech and movement present Assessment & Plan Assessment & Plan (1) Status post CVA: Code(s): Z86.73 - Personal history of transient ischemic attack (TIA), and cerebral infarction without residual deficits (2) Snoring: Code(s): R06.83 - Snoring (3) Daytime sleepiness: Code(s): R40.0 - Somnolence Plan Pt is evaluated and discussed the care plan with Dr. Lemus. Advised patient to undergo home sleep study to assess sleep apnea. Will follow up with the patient for the result for appropriate treatment options. Pt is advised to take asprin 81 mg, clopidogrel 75 mg and atorvastatin 80 mg daily. Orders: Orders RT home sleep study 07/17/23 I63.9 - Cerebral infarction, unspecified, R06.83 - Snoring, R40.0 - Somnolence Coding Level of Care Code New Pt Level 4 (78778) Diagnoses Status post CVA Z86.73 Snoring R06.83 Daytime sleepiness R40.0
[2023-07-17 09:57] VITALS: BP 122/70; PULSE 67; O2SAT 97; BMI 27.0
== END 2023-07-17 10:51 | disposition home or self-care (01) ==
PROVIDERS: PCP Internal Medicine; Visit Provider Nurse Practitioner Family
DX: Z86.73 Personal history of transient ischemic attack (TIA), and cerebral infarction without residual deficits (principal); R06.83 Snoring; R40.0 Somnolence
CPT/HCPCS: 99204

== ENCOUNTER → 2023-07-17 09:46 | Outpatient (BNVA) | payer MEDICARE, SELFPAY | PROVIDERS: PCP Internal Medicine; Visit Provider Nurse Practitioner Family | DX: R06.83 Snoring (principal); R40.0 Somnolence; Z86.73 Personal history of transient ischemic attack (TIA), and cerebral infarction without residual deficits | CPT/HCPCS: 99202 ==

== ENCOUNTER 2023-08-17 12:55 | Outpatient (RCR) | payer MEDICARE, SELFPAY ==
--- NOTE | 2023-09-22 14:23 | MHC.SP.ADU ---
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 He lives with his Daughter, and enjoys playing cards with friends on the weekends. 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 His chief complaint is that he will frequently, ?lose my train of thought?. He graduated High School and did some college. He reports a Family history of learning differences, and that his brothers were both held back in school. He was found to have suffered a series of small acute strokes in March 2023. MRI of the brain reports the following impression: ?- There are a few small acute infarcts within the left RICK territory involving the left cingulate gyrus and the left parasagittal frontal lobe, the latter at the high convexity at the level of the left frontal precentral gyrus. There is no mass effect and there is no hemorrhagic transformation. - Absent right internal carotid artery flow void suggesting slow flow within versus occlusion of the right internal carotid artery which would be better assessed with a CTA of the head and neck. - There is global cerebral volume loss and there is mild to moderate chronic microangiopathy.? CTA also confirmed vascular changes: ?1. 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 No significant mass effect or hemorrhagic transformation. No new territorial loss of monte-white differentiation. 2. 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 3. Occluded right ICA just beyond its origin and throughout the reconstituted supraclinoid segment via of the [place].? He completed a short course of outpatient PT at this facility but was discharged after only 3 visits, and referred for [facility] treatment of on-going cognitive changes. Medical History: Other: Past medical history includes: Lumbar disc herniation with radiculopathy Acute CVA (cerebrovascular accident) Vitamin D deficiency Constipation Benign localized hyperplasia of prostate with urinary retention COVID-19 Medication List: Recent Hospitalizations: No Respiratory Needs: Room Air Patient Orientation: Alert & Oriented x 4 Social History: Employment Status: Retired Highest level of education obtained: Completed High School/GED Current Living Situation: Home with Family. Assistive Devices in use: Comment: Past Speech Language Therapy: None Other Therapies Seen in Current Calendar Year: Occupational Therapy Physical Therapy Speech Therapy Other: Discharged from PT/OT. Swallowing History: Dysphagia Specific: Within Functional Limits Comments: Pre-eval Risk for Aspiration: None Reported Speech, Language, Cognition difficulties: Attention Memory Cognition Problem Solving Assessment Speech Production: Within Functional Limits Clinical Impression: Intact Observations: Informal Voice Assessment: Voice Loudness: Normal Voice Nasal Resonance: Normal Voice Oral Resonance: Voice Phonatory-based Quality: Normal Voice Pitch: Normal Voice Other Observations: Clinical Impression: Intact Tests of Speech & Lang Adults: Clinical Impression: Observations: Tests of Cognition: RBANS Clinical Impression: Impaired Observations: Mr. Bose participated in select subtests of the Repeatable Battery for the Assessement of Neuropsychological Status - Updated. Subests were sufficient to yield a Total Scale Score. [facility] RBANS is considered a screening battery for cognitive function and is repeatable for the purpose of evaluating any changes in function. It is intended for use with adolescents and adults, ages 12 to 89 years. Composite domains assessed in this test are: Immediate Memory, Visuospatial/Constructional, Language, Attention, and Delayed Memory. His scores are tabled below: I.) Immediate Memory Index: 78 Ia.) List Learning: -- Scaled Score: 8 Ib.) Story Memory: -- Scaled Score: 4 The Immediate Memory Index measures, ?initial encoding and learning of complex and simple verbal information. Low scores on this index indicated difficulties with verbal learning.? The score is derived from the participant?s performance on the subtests List Learning and Story Memory. List Learning measures, ?rote verbal memory function.? Participants are asked to repeat back a list of ten words presented to them verbally across four trials. Poor performance on this subtest indicates that, ?the examinee may have difficulty learning new verbal information and that repetition may not be beneficial?, if they do not improve across trials. The Story Memory subtest measures, ?memory for conceptually related verbal information.? Here, a short story is read to them across two trials and they are asked to recall details from the story. ?The test is a measure of verbal memory functioning for information that is related?. As with List Learning, participants that do not demonstrate a positive learning curve across trials could indicate, ?difficulty with learning new verbal learning, and that repetition may not help, or that the examinee may have difficulty retrieving new information from memory. II.) Visuospatial/Constructional Index: 78 IIa.) Figure Copy: -- Scaled Score: 4 IIb.) Line Orientation: -- Percentile Group: 26-50 The Visuospatial/Constructional Index is derived from the Figure Copy and Line Orientation subtests. It measures, ?basic visuospatial perception and the ability to copy a design from a model?. Low performance with this index can indicate, ?difficulties with processing and using visuospatial information?, or, ?visual impairments or attention disorders such as mark neglect?. The Figure Copy subtest requires the examinee to copy a complex geometrical design from a model that is present throughout the task. ?This requires many cognitive skills including visuospatial reasoning, attention to visual details, motor programming, and to a lesser degree, organization and fine-motor ability?. Points are given for specific details, as well as specific placement in the context of the entire image. The Line Orientation subtest measures, ?the examinee?s ability to correctly identify spatial orientation in two-dimensions?. Poor performance indicates significant visuospatial impairments in acuity and attention. III.) Language Index: 105 IIIa.) Picture Naming: -- Percentile Group: 51-75 IIIb.) Semantic Fluency: -- Scaled Score: 9 The Language Index is, ?a measure of expressive language functioning?. Low scores with this subtest ?would indicate difficulties with language functioning? and, ?while the overall score would still indicate language difficulties, the deficits may be more related to fluency versus naming skills.? The Picture Naming subtest is provided by showing the participant a series of 10 simple line drawing and asking them to name them. The Semantic Fluency subtest is a measure of, ?the examinee?s ability to retrieve and express words using a semantic prompt?. In brief, the examinee is given a category and asked to name as many exemplars as they can in 60 seconds. Low scores, ?indicate significantly impaired ability to retrieve and express verbal information from long-term memory stores?. IV.) Attention Index: 97 Alden.) Digit Span: -- Scaled Score: 10 IVb.) Coding: -- Scaled Score: 9 The Attention Index is a derived from the Digit Span and Coding subtests. It is a measure of, ?simple auditory registration, visual scanning and processing speed. Low scores on this index indicate, ?difficulties with basic attention and processing speed?. Difficulties can vary between the subtests suggesting acute differences between auditory and visual processing and attention. Digit Span is a measure of, ?auditory registration and brief focused attention. Low scores can also indicate difficulties with auditory attention and registration?. In it, the examinee is read a series of single digit numbers and asked to repeat them back in the same order. ?Impairments in auditory acuity can also influence performance on this test?. Coding is a measure of, ?brief, focused, visual attention, visual scanning and processing speed?. In it, the examinee is given a guzman at the top of the page where each symbol is associated with a different number. The examinee is then asked to fill out as many numbers to corresponding symbols as they can in 90 seconds. In incorporates the notion of diligence and sustained attention as well. Difficulties can indicate problems with, ?processing speed and focused visual attention?. V.) Delayed Memory Index: 81 Va.) List Recall: -- Percentile Group: 26-50 Vb.) List Recognition: -- Percentile Group: 17-25 Vc.) Story Recall: -- Scaled Score: 6 Vd.) Figure Recall: -- Scaled Score: 8 The Delayed Memory Index is derived by combining the subtest scores for List Recall, Story Recall, and Figure Recall, and cross-referencing them with the List Recognition subtest. Auditory and Visual subtest are combined together. Difference between subtests can be highlighted to provide more specific information about areas of deficit and strength. ?The deficits, may be more related to verbal more than visual memory, or free recall as opposed to recognition memory or general variability in memory functioning.? .) Total Scale Score: 83 (%ile=13) Impressions and Recommendations Summary: Mr. Bose demonstrated relative strengths in the domains of Language (MY=718) and Attention (SS=97). He demonstrate relative deficits in the areas of Immediate Memory (SS=78), Visuospatial/Construction (SS=78) and Delayed Memory (SS=81). Of note, it is surprising that his Memory score were both low, despite intact Attention scores. We tend to think of Attention and ther personal lines appraiser to Memory. That is, you cannot remember something that we are not attending to. His Immediate Memory scores were derived from List Learning (SS=8) and Story Memory (SS=4). Also worth noting is that Story Memory scores are typically elevated over List Learning given a story?s natural ability to make context. These test scores are consistent with his report of difficulty remembering and losing track of his thoughts. He will benefit from a short course of Cognitive-Communication treatment to target deficits in immediate and short term memory and promote cognitively stimulating task to promote his long-term brain health. Recommendation for Speech Therapy: Outpatient Speech Therapy Frequency/Duration: 1 x week x 12 weeks Date Range for Service Requested: 08/17/23-11/16/23 Time to Reassess: 3 months Grey Roll Man Goals: LTG1: Pt will improve attention and processing skills with use of compensatory strategies. Short Term Goals: Goal # : STG1: Pt will demonstrate knowledge of the 5 attention types with >80% accuracy independently. Goal Status: New Goal Goal# : STG2: Pt will complete complex logic puzzles with use of compensatory strategies with >80% accuracy. Goal Status: New Goal Goal # : STG3: Pt will increase short-term recall of 5 item lists with >80% accuracy and minimal assistance. Goal Status: New Goal Goal # : STG4: Pt/Caregiver will complete weekly assigned HEP tasks with >80% accuracy independently. Goal Status: New Goal Recommended Referrals to be Discussed with Primary Care Provider: Neurology Refer back to treating Neurologist and referring PCP. Patient Education: Completed: Yes Patient/Caregiver Education: Described Results of Evaluation Patient expressed understanding of evaluation Patient agrees with goals and treatment plan Patient requires further education on strategies Comments/Barriers to Learning: Portal Administrator Clinican/Clinical Fellow: No Supervisory Statement: N/A Speech Language Pathologist: Felix Savage M.A., [facility]
== END 2023-09-24 14:53 | disposition still patient (30) ==
LOC: HO.SH 12:55
PROVIDERS: PCP Internal Medicine; Visit Provider Internal Medicine
DX: I63.9 Cerebral infarction, unspecified (principal)
CPT/HCPCS: 92523

== ENCOUNTER 2023-09-21 07:21 | Outpatient (REF) | payer MEDICARE, SELFPAY ==
--- NOTE | ~2023-09-21 | XR_ITS ---
EXAMINATION: XR HIP, LEFT CLINICAL INFORMATION: Left hip pain COMPARISON: CT abdomen and pelvis 04/29/2017 TECHNIQUE: Two views of the left hip. FINDINGS: Mild degenerative changes of the left hip. No acute fracture or dislocation. Soft tissues are unremarkable. XR/XR hip LT min 2V IMPRESSION: Mild degenerative changes of the left hip.
== END 2023-09-21 07:22 | disposition home or self-care (01) ==
LOC: HO.XRAY 07:21
PROVIDERS: PCP Internal Medicine; Visit Provider Internal Medicine
DX: M25.552 Pain in left hip (principal)
CPT/HCPCS: 73502

== ENCOUNTER → 2023-09-29 10:47 | Outpatient (REF) | payer MEDICARE, SELFPAY | LOC: HO.SL 10:47 | PROVIDERS: Visit Provider Nurse Practitioner Family | DX: G47.33 Obstructive sleep apnea (adult) (pediatric) (principal); R06.83 Snoring; R40.0 Somnolence | CPT/HCPCS: 95806 ==

== ENCOUNTER → 2023-09-29 10:57 | Outpatient (BNV) | payer MEDICARE, SELFPAY | PROVIDERS: Visit Provider Psychiatry & Neurology Neurology | DX: G47.33 Obstructive sleep apnea (adult) (pediatric) (principal) | CPT/HCPCS: 95806 ==

== ENCOUNTER 2023-10-02 11:05 | Outpatient (AMB) | payer MEDICARE, SELFPAY ==
[2023-10-02 11:10] VITALS: BP 126/86; PULSE 65; O2SAT 98; BMI 27.1
--- NOTE | 2023-10-02 11:10 | MHC.PC.OV ---
Vital Signs 10/02/23 11:10 Height 5 ft 11 in Weight 194 lb BMI 27.1 BP 126/86 Blood Pressure Location Lt brachial Position Sitting Pulse 65 Pulse Source Pulse Oximeter Pulse Oximetry (%) 98 Oxygen Delivery Method Room Air Intake Visit Reasons: Hernia Pain Allergies brimonidine [BRIMONIDINE] Allergy (Intermediate, Verified 10/02/23 12:05) ITCHING Medication List - Last Reconciled 10/02/23 by Silvio Kothari MD ascorbate calcium (vitamin C) 1,000 mg PO DAILY aspirin 81 mg PO DAILY atorvastatin 80 mg PO BEDTIME 90 days cholecalciferol (vitamin D3) 50 mcg PO DAILY 90 days clopidogrel 75 mg PO DAILY 90 days multivitamin 1 tab PO DAILY Tobacco use date assessed: 06/10/23 Fall risk assessment: No Falls in past year Last assessed Fall Risk: 10/02/23 Dental Screening Dental Screen Date: 06/10/23 HPI Hernia Pain HPI Details Patient comes in today for further evaluation of the recurrent sharp pains that he has been experiencing on and off over his left inguinal area for the past couple of weeks Recalls that he had a hernia repair with mesh over his left inguinal area done about 26 years ago and is concerned that the pain may be related to the mesh that was placed States that he has arthritis in his lower back and his symptoms may also be just due to his back problems but he is not sure in this case which is which States that the pain over his left inguinal area seems to come on randomly and are not consistently associated with activity or physical exertion States that he feels okay otherwise He denies any headaches or dizziness Denies any chest pains, no SOB No nausea/vomiting, no abdominal pain and no change in bowel habits noted Adds that he also had a sleep study done last week and is wondering if his results are out yet [facility] Medical History Lumbar disc herniation with radiculopathy Acute CVA (cerebrovascular accident) Vitamin D deficiency Constipation Benign localized hyperplasia of prostate with urinary retention COVID-19 Surgical History S/P TURP (status post transurethral resection of prostate) (~05/01/22) History of colonoscopy History of cataract surgery History of tonsillectomy History of appendectomy History of umbilical hernia repair History of hernia surgery Family History Mother No problems noted. Father No problems noted. Social History Household Members: Children Housing: House Do you presently have visiting nurse or other home services: No Alcohol intake: former Year quit: 02/06 Patient Tobacco Use Status: Former Tobacco user Quit Date: 1979 Tobacco use type: Cigarette e-Cigarette/Vaping Use: Never Used Second Hand Smoke Exposure: No Substance Use Type: Marijuana service: No Current occupational status: retired Cognitive needs: No Hearing needs: No Vision needs: Yes (glasses) Questionnaire Thrive Questionnaire Date Thrive assessed: 06/10/23 TANGELA-7 AMB Questionnaire TANGELA-7 Date TANGELA - 7 assessed: 06/10/23 Source: Developed by Drs. Rory Garay, Jackie Guzman, Uvaldo Milian and colleagues, with an educational lakia from [employer]. Review of Systems Const Denies chills, Denies fatigue, Denies fever(s) and Denies headache(s) ENT Denies dysphagia, Denies dizziness, Denies otalgia, Denies headache(s), Denies odynophagia and Denies sore throat Card Denies chest pain, Denies palpitations and Denies dyspnea Resp Denies cough, Denies dyspnea and Denies wheezing GI Denies abdominal pain (but (+) on and off sharp left inguinal pains - see HPI), Denies constipation, Denies dysphagia, Denies diarrhea, Denies nausea, Denies odynophagia and Denies vomiting Denies dysuria, Denies nocturia and Denies urinary frequency Musc Denies back pain and Denies muscle weakness Skin/Breast Denies rash Neuro Denies Abnormal speech present (but still has some trouble with word recall ), Denies dizziness and Denies headache(s) Endo Denies fatigue and Denies palpitations Aller/Immun Denies wheezing Physical exam (Primary Care) Vital Signs: Last Vital Signs Pulse 65 10/02/23 11:10 BP 126/86 10/02/23 11:10 Pulse Ox 98 10/02/23 11:10 Oxygen Delivery Method Room Air 10/02/23 11:10 BMI result Body Mass Index 27.1 Tobacco/Smoking Status: Tobacco use Status Tobacco use date assessed 06/10/23 10/02/23 11:13 Patient Tobacco Use Status Former Tobacco user 10/02/23 11:13 Tobacco use type Cigarette 10/02/23 11:13 e-Cigarette/Vaping Use Never Used 10/02/23 11:13 Thrive Assessment: Date of Thrive Assessment Date Thrive assessed 06/10/23 10/02/23 11:13 Const General: no acute distress and alert HENMT Throat: Yes posterior oropharynx normal and Yes tonsils normal (no TP congestion) Neck Neck: Yes no lymphadenopathy and Yes supple Thyroid: Thyroid normal Carotids: no bruits Resp Auscultation: clear to auscultation bilaterally, no rales and no wheezes Cardio Rate: regular rate Rhythm: regular rhythm Heart sounds: no murmurs GI Palpation (GI): Soft to palpation, nontender (no reproducible pain noted on exam today), no hernias and no masses Auscultation: normal bowel sounds General: Yes no CVA tenderness Back/Spine/Pelvis Back: no CVA tenderness Thoracic/Lumbar Spine: lumbar spinal tenderness (minimal) Neuro General: moves all extremities Speech: No Abnormal speech present (but still has some trouble with word recall ) Extrem General: Yes no clubbing, cyanosis or edema Assessment and Plan Assessment & Plan (1) Left inguinal pain: Code(s): R10.32 - Left lower quadrant pain Plan: Patient reports (+) Hx of left inguinal hernia repair with mesh about 26 years ago and is concerned that his recent symptoms may be due to failure of the mesh or a recurring hernia Relates that he also has some issues with his lumbar spine so is not sure if his symptoms are related to his lumbar spine pathology as well Will send him for abdominal and pelvic CT for further evaluation (2) Lumbar disc herniation with radiculopathy: Code(s): M51.16 - Intervertebral disc disorders with radiculopathy, lumbar region Plan: Lumbar spine MRI done in March 2023 revealed (+) multilevel disc herniation/protrusion with some nerve root compression Reinforced activity and weight-lifting restrictions Follow up with physical therapy as scheduled He has declined offer to refer him to neurosurgery but advised that if his symptoms progress, he may need to reconsider this Plan To return as scheduled next month for his annual physical examination Orders: Orders CT abdomen pelvis wo IV con Today R10.32 - Left lower quadrant pain Coding Level of Care Code Est Pt Level 3 (01934) Diagnoses Left inguinal pain R10.32 Lumbar disc herniation with radiculopathy M51.16
== END 2023-10-02 11:52 | disposition home or self-care (01) ==
PROVIDERS: PCP Internal Medicine; Visit Provider Internal Medicine
DX: R10.32 Left lower quadrant pain (principal); M51.16 Intervertebral disc disorders with radiculopathy, lumbar region
CPT/HCPCS: 99213

== ENCOUNTER → 2023-11-04 20:30 | Outpatient (REF) | payer MEDICARE, SELFPAY | LOC: HO.SL 20:30 | PROVIDERS: PCP Internal Medicine; Visit Provider Nurse Practitioner Family | DX: G47.33 Obstructive sleep apnea (adult) (pediatric) (principal); Z86.73 Personal history of transient ischemic attack (TIA), and cerebral infarction without residual deficits | CPT/HCPCS: 95811 ==

== ENCOUNTER → 2023-11-04 22:25 | Outpatient (BNV) | payer MEDICARE, SELFPAY | PROVIDERS: PCP Internal Medicine; Visit Provider Psychiatry & Neurology Neurology | DX: G47.33 Obstructive sleep apnea (adult) (pediatric) (principal) | CPT/HCPCS: 95811 ==

== ENCOUNTER 2023-11-10 12:43 | Outpatient (AMB) | payer MEDICARE, SELFPAY ==
[2023-11-10 12:45] VITALS: BP 136/60; PULSE 49; O2SAT 94; BMI 26.9
--- NOTE | 2023-11-10 12:45 | A.OFFPC_ITS ---
Vital Signs 11/10/23 12:45 Height 5 ft 11 in Weight 193 lb BMI 26.9 BP 136/60 Blood Pressure Location Lt brachial Position Sitting Pulse 49 L Pulse Source Pulse Oximeter Pulse Oximetry (%) 94 Oxygen Delivery Method Room Air Intake Visit Reasons: Annual Intake Note: Patient is here today for a physical. 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 Allergies brimonidine [BRIMONIDINE] Allergy (Intermediate, Verified 11/10/23 13:48) ITCHING Medication List - Last Reconciled 11/10/23 by Silvio Kothari MD ascorbate calcium (vitamin C) 1,000 mg PO DAILY aspirin 81 mg PO DAILY atorvastatin 80 mg PO BEDTIME 90 days cholecalciferol (vitamin D3) 50 mcg PO DAILY 90 days clopidogrel 75 mg PO DAILY 90 days multivitamin 1 tab PO DAILY Tobacco use date assessed: 06/10/23 Fall risk assessment: No Falls in past year Last assessed Fall Risk: 11/10/23 Dental Screening Dental Screen Date: 11/10/23 Did you have a dental visit in the last 12 months?: No Did you have a dental problem in the last 6 months where you did not have access to dental care?: No Was dental information given to patient?: Patient has dentist HPI Annual HPI Details Patient comes in today for his annual physical examination States that he feels okay He denies any headaches or dizziness Denies any chest pains, no SOB No nausea/vomiting, no abdominal pain No change in bowel habits noted He denies any acute urinary symptoms He was not able to get his previously ordered labs done yet - is advised to try to get these done REG He last had his screening colonoscopy done with Dr. Coates in December 2013 and was advised at the time to get a repeat colonoscopy in 5 years Recalls that he was referred for a repeat colonoscopy a few years ago but was advised reportedly at the time that they cannot do the procedure unless he is cleared medically - not sure what this is about and patient is unable to remember any further details on this States that he is currently NOT interested in going for a repeat colonoscopy and does not want to do any Cologuard testing as well ON LICENSE OF [facility] Medical History (Updated 11/11/23 @ 14:29 by Silvio Kothari MD) Overweight (BMI 25.0-29.9) Lumbar disc herniation with radiculopathy Acute CVA (cerebrovascular accident) Vitamin D deficiency Constipation Benign localized hyperplasia of prostate with urinary retention COVID-19 Surgical History S/P TURP (status post transurethral resection of prostate) (~05/01/22) History of colonoscopy History of cataract surgery History of tonsillectomy History of appendectomy History of umbilical hernia repair History of hernia surgery Family History Mother No problems noted. Father No problems noted. Social History Household Members: Children Housing: House Do you presently have visiting nurse or other home services: No Alcohol intake: former Year quit: 02/06 Patient Tobacco Use Status: Former Tobacco user Tobacco use type: Cigarette e-Cigarette/Vaping Use: Never Used Second Hand Smoke Exposure: No Substance Use Type: Marijuana service: No Current occupational status: retired Cognitive needs: No Hearing needs: No Vision needs: Yes (glasses) Questionnaire PHQ-9 Over the last 2 weeks, how often have you been bothered by any of the following problems? 1. Little interest or pleasure in doing things: not at all 2. Feeling down, depressed, or hopeless: not at all 3. Trouble falling or staying asleep, or sleeping too much: not at all 4. Feeling tired or having little energy: not at all 5. Poor appetite or overeating: not at all 6. Feeling bad about yourself - or that you are a failure or have let yourself or your family down: not at all 7. Trouble concentrating on things, such as reading the newspaper or watching television: not at all 8. Moving or speaking so slowly that other people could have noticed. Or the opposite - being so fidgety or restless that you have been moving around a lot more than usual: not at all 9. Thoughts that you would be better off or of hurting yourself in some way: not at all Total score: 0 Depression Screening Interpretation: Negative Depression Screening Done: Yes 43062 - PHQ-9 Billing: Yes Source: Developed by Drs. Rory Garay, Jackie Guzman, Uvaldo Milian and colleagues, with an educational lakia from [employer]. Thrive Questionnaire Date Thrive assessed: 11/10/23 I am a: Patient What is your living situation today?: I have a steady place to live Within the past 12 months, did the food you bought not last and you didn't have the money to get more?: Never true Within the past 12 months, did you worry whether your food would run out before you got money to buy more?: Never true Do you have trouble paying for medicines?: No Do you have trouble getting transportation to medical appointments?: No Do you have trouble paying your heating and electricity bill?: No Do you have trouble taking care of your child, family member or friend?: No Do you have trouble with day-to-day activities such as bathing, preparing meals, shopping, managing finances, etc.?: No Are you currently unemployed and looking for a job?: No Are you interested in more education?: No Please select the resources that you would like help with: None Currently or been in a relationship where the following occur: no concerns reported THRIVE Score: 0 AUDIT C Alcohol Use Questionnaire (AUDIT-C) 1. How often do you have a drink containing alcohol?: Never 3. How often do you have six or more drinks on one occasion?: Never Total Score: 0 Score Reviewed/Action Taken: Yes TANGELA-7 AMB Questionnaire TANGELA-7 Date TANGELA - 7 assessed: 11/10/23 Feeling nervous, anxious, or on edge: 0 = Not at all Not being able to stop or control worryin = Not at all Worrying too much about different things: 0 = Not at all Trouble relaxin = Not at all Being so restless that it is hard to sit still: 0 = Not at all Becoming easily annoyed or irritable: 0 = Not at all Feeling afraid as if something awful might happen: 0 = Not at all Total TANGELA-7 score (0-4 normal; 5-9 mild; 10-14 moderate; 15-21 severe): 0 Source: Developed by Drs. Rory Garay, Jackie Guzman, Uvaldo Milian and colleagues, with an educational lakia from [employer]. TANGELA-7 Assessment Billing TANGELA-7 Assessment Tool: TANGELA-7 Assessment 00082 Review of Systems Const Denies chills, Denies fatigue, Denies fever(s), Denies headache(s), Denies malaise and Denies weakness Eyes Denies blurry vision, Denies change in vision, Denies irritation and Denies itchy eyes ENT Denies dysphagia, Denies dizziness, Denies otalgia, Denies headache(s), Denies nasal congestion, Denies neck pain, Denies odynophagia and Denies sore throat Card Denies chest pain, Denies rapid heart rate, Denies irregular heart rhythm, Denies palpitations and Denies dyspnea Resp Denies chest congestion, Denies cough, Denies dyspnea and Denies wheezing GI Denies abdominal pain, Denies bloating, Denies constipation, Denies dysphagia, Denies heartburn, Denies diarrhea, Denies nausea, Denies odynophagia and Denies vomiting Denies hematuria, Denies difficulty urinating, Denies dysuria, Denies urinary frequency and Denies urinary urgency Musc Denies back pain, Denies arthralgias, Denies joint swelling, Denies muscle weakness and Denies neck pain Skin/Breast Denies change in pigmentation, Denies lesions, Denies rash and Denies unusual bruising Neuro Denies Abnormal speech present (but still has some trouble with word recall ), Denies dizziness, Denies headache(s), Denies paresthesias and Denies weakness Endo Denies fatigue and Denies palpitations Aller/Immun Denies itchy eyes and Denies wheezing Physical exam (Primary Care) Vital Signs: Last Vital Signs Pulse 49 L 11/10/23 12:45 BP 136/60 11/10/23 12:45 Pulse Ox 94 11/10/23 12:45 Oxygen Delivery Method Room Air 11/10/23 12:45 BMI result Body Mass Index 26.9 Tobacco/Smoking Status: Tobacco use Status Tobacco use date assessed 06/10/23 11/10/23 12:46 Patient Tobacco Use Status Former Tobacco user 11/10/23 12:46 Tobacco use type Cigarette 11/10/23 12:46 e-Cigarette/Vaping Use Never Used 11/10/23 12:46 PHQ-9: PHQ-9 Score PHQ-9: Total score 0 11/10/23 13:53 Depression Screening Interpretation: Negative Thrive Assessment: Date of Thrive Assessment Date Thrive assessed 11/10/23 11/10/23 13:02 Currently or been in a relationship where the following occur: no concerns reported Const General: no acute distress, alert and awake Orientation/consciousness: patient oriented x3 [facility] Head: Yes normocephalic and Yes atraumatic Ears: external ears normal, TM's normal bilaterally and EAC's normal General nose exam: No nasal discharge present Face and sinus: Yes normal facial exam and Yes sinuses nontender Teeth and gingiva: dentition normal Throat: Yes posterior oropharynx normal and Yes tonsils normal (no TP congestion) Eyes Eyelids: Yes eyelids normal Conjunctivae: conjunctivae normal Pupils: Equal, round and reactive pupils present EOM: EOMs intact bilaterally Neck Neck: Yes no lymphadenopathy and Yes supple Thyroid: Thyroid normal Carotids: no bruits Resp Auscultation: clear to auscultation bilaterally, no rales and no wheezes Cardio Rate: regular rate Rhythm: regular rhythm Heart sounds: no murmurs GI Palpation (GI): Soft to palpation, nontender and No hepatosplenomegaly present Auscultation: normal bowel sounds General: Yes no CVA tenderness Back/Spine/Pelvis Back: no CVA tenderness Thoracic/Lumbar Spine: thoracic and lumbar spine normal to inspection Skin Lesions: no lesions Rashes: no rashes Neuro General: patient oriented x3, moves all extremities, no focal motor deficits and CN's II-XI intact bilaterally Cranial nerves: Yes Equal, round and reactive pupils present Cognition (Neuro): normal cognition Speech: No Abnormal speech present (but still has some trouble with word recall ) Gait exam (Neuro): Normal gait present Extrem General: Yes no clubbing, cyanosis or edema Assessment and Plan Assessment & Plan (1) Annual physical exam: Code(s): Z00.00 - Encounter for general adult medical examination without abnormal findings Plan: Check labs - his labs were previously ordered and he just has to present himself to the registration desk at the hospital lobby He last had his colonoscopy done in 12/2013 and was due to have it repeated in 5 years but states that his procedure was cancelled a few years ago and he could not remember why States that he is currently NOT interested in revisiting this and also does not wish to do any Cologuard testing at this time - he is advised that he can call for these orders at any time if he changes his mind (2) Acute CVA (cerebrovascular accident): Code(s): I63.9 - Cerebral infarction, unspecified Plan: Brain MRI done on 04/08/2023 revealed (+) few small acute infarcts within the left RICK territory involving the left cingulate gyrus and the left parasagittal frontal lobe, the latter at the high convexity at the level of the left frontal precentral gyrus. There is no mass effect and there is no hemorrhagic transformation. Absent right internal carotid artery flow void suggesting slow flow within versus occlusion of the right internal carotid artery which would be better assessed with a CTA of the head and neck. There is global cerebral volume loss and there is mild to moderate chronic microangiopathy CTA of the head and neck done subsequently revealed (+) evolving acute infarcts in the left RICK territory Continue Aspirin 81 mg QD and Clopidogrel 75 mg QD States that he also physical therapy a few months ago and felt that his right leg was back to his baseline after his PT He continues to have some word finding difficulty/recall and has been referred to the speech center for speech and cognitive therapy Follow up with neurology as scheduled (3) Right internal carotid occlusion: Code(s): I65.21 - Occlusion and stenosis of right carotid artery Plan: CTA of the head and neck done in March 2023 revealed (+) evolving acute infarcts in the left RICK territory although these were better appreciated on his MRI. No significant mass effect or hemorrhagic transformation and no new territorial loss of monte-white differentiation are seen. (+) focally occluded distal A4 branch of the left RICK with reconstitution distally and occluded right ICA just beyond its origin and throughout the reconstituted supraclinoid segment via of the cab[place] of [place] Patient is advised to continue on dual antiplatelet therapy with Aspirin and Clopidogrel and on high-dose statin (Atorvastatin 80 mg) To consider referring him to vascular surgery in the future for intervention of this if appropriate (4) Bradycardia: Code(s): R00.1 - Bradycardia, unspecified Plan: This appears to have resolved and has not recurred recently EKG done last year revealed (+) sinus bradycardia (HR of around 58 bpm), with non-specific intra-ventricular conduction delay and minimal voltage criteria for LVH, may be normal variant ([employer] product) Echocardiogram done in December 2022 came out normal - the left ventricular systolic function is normal. The calculated ejection fraction is 57% by biplane method. There is mild calcification of the aortic valve but no obvious valvular pathology was seen on this study (5) Severe obstructive sleep apnea: Code(s): G47.33 - Obstructive sleep apnea (adult) (pediatric) Plan: An initial home sleep study done on 10/13/2023 revealed (+) severe obstructive sleep apnea Repeat sleep study with CPAP titration done last week recommended starting CPAP therapy at 7 cm pressure Follow up with Sleep Medicine as scheduled (6) Elevated fasting glucose: Code(s): R73.01 - Impaired fasting glucose Plan: His FBS was slightly elevated on his previous labs but his HgbA1c came back normal at 5.2% when checked a few months ago Reinforced low calorie diet /exercise as tolerated (7) Vitamin D deficiency: Code(s): E55.9 - Vitamin D deficiency, unspecified Plan: Continue Vitamin D3 2000 units QD (8) Rosacea: Code(s): L71.9 - Rosacea, unspecified Plan: Continue Clindamycin 1% apply to rash on face QD Follow up with dermatology as scheduled (9) Benign localized hyperplasia of prostate with urinary retention: Code(s): N40.1 - Benign prostatic hyperplasia with lower urinary tract symptoms; R33.8 - Other retention of urine Plan: S/P TURP in April 2022 Recent biopsy showed no malignancy on pathology Follow up with urology as scheduled (10) Overweight (BMI 25.0-29.9): Code(s): E66.3 - Overweight Plan: Reinforced diet/exercise as tolerated/lose weight Plan Follow up in 6 months Review Patient declined Colonoscopy: 11/10/23 Patient declined Colon Cancer Screen Lab: 11/10/23 Coding Level of Care Code Est Pt Prev Care >65y(17938) Diagnoses Annual physical exam Z00.00 Acute CVA (cerebrovascular accident) I63.9 Right internal carotid occlusion I65.21 Bradycardia R00.1 Severe obstructive sleep apnea G47.33 Elevated fasting glucose R73.01 Vitamin D deficiency E55.9 Rosacea L71.9 Benign localized hyperplasia of prostate with urinary retention N40.1; R33.8 Overweight (BMI 25.0-29.9) E66.3 Additional Codes TANGELA-7 Assessment Billing - TANGELA-7 Assessment Tool: TANGELA-7 Assessment 59945 ([id number])
== END 2023-11-10 14:03 | disposition home or self-care (01) ==
PROVIDERS: PCP Internal Medicine; Visit Provider Internal Medicine
DX: Z00.00 Encounter for general adult medical examination without abnormal findings (principal); I69.328 Other speech and language deficits following cerebral infarction; R00.1 Bradycardia, unspecified; G47.33 Obstructive sleep apnea (adult) (pediatric); R73.01 Impaired fasting glucose; E55.9 Vitamin D deficiency, unspecified; N40.1 Benign prostatic hyperplasia with lower urinary tract symptoms; R33.8 Other retention of urine; E66.3 Overweight
CPT/HCPCS: 99214; 99397

== ENCOUNTER 2023-11-20 07:07 | Outpatient (REF) | payer MEDICARE, SELFPAY ==
[2023-11-20 07:17] LABS: MANUAL DIFF FLAG NO
[2023-11-20 07:39] LABS: Basophils Percent Auto 0.2 % (0-2); Eosinophils Absolute Auto 0.1 X10*3/uL (0.0-0.4); Eosinophils Percent Auto 1.1 % (0-4); Hemoglobin 16.3 g/dl (14.0-18.0); Imm Gran Abs Auto 0.03 X10*3/uL (0.00-0.03); Imm Gran Pct Auto 0.3 % (0.0-0.4); Lymphocytes Absolute Auto 2.3 X10*3/uL (1.2-4.9); Lymphocytes Percent Auto 22.6 % (20-40); Mean Corpuscular Volume 94.1 fL (80.0-98.0); Mean Platelet Volume 8.9 fL (9.4-12.4); Monocytes Absolute Auto 0.9 X10*3/uL (0.1-1.2); Monocytes Percent Auto 8.5 % (2-11); Neutrophils Absolute Auto 6.8 x10*3/uL (2.0-8.3); Neutrophils Percent Auto 67.3 % (45-73); Platelet Count 219 X10*3/uL (160-400); Red Cell Distribution Width 13.1 % (11.0-16.0); White Blood Count 10.1 X10*3/uL (4.8-10.8)
[2023-11-20 08:12] LABS: Alanine Aminotransferase 25 U/L (0-40); Albumin Level 4.2 g/dL (3.5-5.0); Alkaline Phosphatase 97 U/L (39-117); Anion Gap 12 (12-20); Aspartate Amino Transferase 19 U/L (5-37); Bilirubin Total 0.9 mg/dL (0.0-1.0); Blood Urea Nitrogen 18 mg/dL (9-16); Calcium 9.8 mg/dL (8.4-10.2); Carbon Dioxide 27 mmol/L (22-29); Chloride 107 mmol/L (96-108); Cholesterol 112 mg/dL (<200); Estimated Glomerular Filt Rate > 60; Glucose Fasting 101 mg/dL (60-99); HDL Cholesterol 46 mg/dL (>40); LDL Cholesterol Calculated 56 mg/dL (<100); Potassium 4.4 mmol/L (3.3-5.1); Sodium 142 mmol/L (135-145); Total Protein 7.2 g/dL (6.5-8.0); Triglycerides 52 mg/dL (<150)
[2023-11-20 08:21] LABS: TSH reflex Free T4 2.09 uIU/mL (0.32-4.0); Vitamin D 25-OH Total 53.7 ng/mL (>30)
[2023-11-20 10:54] LABS: Folate 16.1 ng/mL (> or = 4.0); Prostate Specific Antigen Scr 3.77 ng/mL (<0.05-4.0); Vitamin B12 618 pg/mL (200-900)
== END 2023-11-20 07:08 | disposition home or self-care (01) ==
LOC: HO.LAB 07:07
PROVIDERS: PCP Internal Medicine; Visit Provider Internal Medicine
DX: Z00.00 Encounter for general adult medical examination without abnormal findings (principal); D64.9 Anemia, unspecified; E78.00 Pure hypercholesterolemia, unspecified; E53.8 Deficiency of other specified B group vitamins; E55.9 Vitamin D deficiency, unspecified; Z12.5 Encounter for screening for malignant neoplasm of prostate
CPT/HCPCS: 36415; 80053; 80061; 82306; 82607; 82746; 84153; 84443; 85025

== ENCOUNTER 2023-12-04 10:54 | Outpatient (REF) | payer MEDICARE, SELFPAY ==
--- NOTE | ~2023-12-04 | CT_ITS ---
EXAMINATION: CT ABDOMEN AND PELVIS WITH CONTRAST CLINICAL INFORMATION: Left lower quadrant pain. COMPARISON: CT abdomen and pelvis 04/29/2017. TECHNIQUE: Multidetector volumetric images were obtained from the superior aspect of the liver through the pubic symphysis following administration 85 mL of Omnipaque 350 intravenous contrast. Sagittal and coronal reformatted images were obtained on the technologist's workstation. Oral contrast: Yes This CT examination was performed using dose optimization techniques as appropriate, variously including the following: *Automated exposure control *Adjustment of mA and/or kV according to patient size (this includes techniques or standardized protocols for targeted exams where dose is matched to indication/reason for exam; i.e. extremities or head) *Use of iterative reconstruction technique DLP: 469 mGy-cm FINDINGS: LUNG BASES: Subpleural reticulation is unchanged and may relate to fibrotic disease. No suspicious pulmonary nodule. Significant LAD and LCx coronary calcium. LIVER, GALLBLADDER, AND BILIARY TREE: Numerous hypodensities seen throughout the liver. The larger are measurable as simple cysts measuring up to 1.9 cm. The smaller 1's are too small to characterize but likely cysts. These appear new when compared to the prior examination although on that study there is marked steatosis of the liver which could obscure small cysts. On the current study there is no suspicious liver mass and no biliary ductal dilatation. The gallbladder is unremarkable. PANCREAS: No discrete pancreatic mass. No pancreatic ductal dilatation. SPLEEN: The spleen appears normal. ADRENAL GLANDS: No adrenal mass. KIDNEYS AND URETERS: Symmetric nephrograms. lobulation. Resolved hydronephrosis compared to the prior study though the renal pelves appear patulous. There is mild distal bilateral hydroureter likely sequela of chronic bladder outlet obstruction. BLADDER: Appears mildly trabeculated. GASTROINTESTINAL TRACT: The small and large bowel are normal in caliber. No focal bowel wall thickening or acute inflammatory changes. Mild diverticulosis of the sigmoid without evidence of diverticulitis. ABDOMINAL WALL: Fat-containing right inguinal hernia. LYMPH NODES: No pathologically enlarged lymph nodes. VASCULAR: Moderate aortoiliac atherosclerosis. No aneurysm. PELVIC VISCERA: TURP defect. OSSEOUS STRUCTURES: Degenerative changes in the spine. No destructive osseous lesions. CT/CT abdomen pelvis w IV con IMPRESSION: Sigmoid diverticulosis without evidence of acute diverticulitis. Other chronic and incidental findings as above. Fleischner guidelines were followed.
[2023-12-04] MEDS: iohexoL 350 MG/ML 75 ML INFUS..BTL 85 ML IV (14:01)
[2023-12-04] MEDS: Barium Sulfate Oral (Berry) 450 ML ORAL.SUSP 900 ML PO (14:01)
== END 2023-12-04 10:55 | disposition home or self-care (01) ==
LOC: HO.CT 10:54
PROVIDERS: PCP Internal Medicine; Visit Provider Internal Medicine
DX: R10.32 Left lower quadrant pain (principal)
CPT/HCPCS: 74177; Q9967

== ENCOUNTER 2023-12-11 10:53 | Outpatient (AMB) | payer MEDICARE, SELFPAY ==
--- NOTE | 2023-12-11 10:56 | A.OFFVIS_ITS ---
Vital Signs 12/11/23 10:57 Height 5 ft 11 in Weight 191 lb BMI 26.6 BP 124/72 Blood Pressure Location Rt brachial Position Sitting Pulse 60 Pulse Source Palpation Intake Visit Reasons: follow up Cerebral infarction-CONF Intake Note: Patient presents for follow up cerebral infarction. Patient states no issues,he sees speech therapist says it's going good. Allergies brimonidine [BRIMONIDINE] Allergy (Intermediate, Verified 12/11/23 11:00) ITCHING Medication List - Last Reconciled 12/11/23 by ANGELICA Gaviria ascorbate calcium (vitamin C) 1,000 mg PO DAILY aspirin 81 mg PO DAILY atorvastatin 80 mg PO BEDTIME 90 days cholecalciferol (vitamin D3) 50 mcg PO DAILY 90 days clopidogrel 75 mg PO DAILY 90 days multivitamin 1 tab PO DAILY HPI Comments Details: 78-yr-old male presents for f/u visit of h/o CVA and f/u of sleep study. Pt states he was having abd pain- had recent abd CT- results pending. HST showed severe obstructive sleep apnea with AHI 30/hr and O2 moris 86%. He then underwent in-lab PAP titration study, which showed best tx response from CPAP 7 cmH2O. He has an upcoming appt to receive his CPAP machine. Denies interval stroke-like activity. BP is normotenisive. Can be bradycardic at times. Pt states his pulse is different between his left and right arms. Today- left radial pulse 60, right radial pulse 72. He can feel lightheaded at times. Sometimes his right toe can feel heavy. He drinks at least 4 20 oz bottles of home filtered/distilled water per day. November CBC, CMP- WNL, w/ BUN slightly elevated at 18. Generally avoids salt- but states if he eats a salted peanut- he can feel a quick surge of energy. He notes that he does not take any eye drops or injections. [facility] Medical History (Updated 12/11/23 @ 13:05 by ANGELICA Gaviria) Status post CVA Overweight (BMI 25.0-29.9) Lumbar disc herniation with radiculopathy Acute CVA (cerebrovascular accident) Vitamin D deficiency Constipation Benign localized hyperplasia of prostate with urinary retention COVID-19 Surgical History S/P TURP (status post transurethral resection of prostate) (~05/01/22) History of colonoscopy History of cataract surgery History of tonsillectomy History of appendectomy History of umbilical hernia repair History of hernia surgery Family History Mother No problems noted. Father No problems noted. Social History Household Members: Children Housing: House Do you presently have visiting nurse or other home services: No Alcohol intake: former Year quit: 02/06 Patient Tobacco Use Status: Former Tobacco user Tobacco use type: Cigarette e-Cigarette/Vaping Use: Never Used Second Hand Smoke Exposure: No Substance Use Type: Marijuana service: No Current occupational status: retired Cognitive needs: No Hearing needs: No Vision needs: Yes (glasses) Physical Exam Vital Signs: Last Vital Signs Pulse 60 12/11/23 10:57 BP 124/72 12/11/23 10:57 BMI result Body Mass Index 26.6 Const General: cooperative and no acute distress Orientation/consciousness: patient oriented x3 Resp Effort & Inspection: normal respiratory effort and able to speak in complete sentences Neuro General: patient oriented x3 Cranial nerves: Yes CN's II-XII intact bilaterally Cognition (Neuro): normal cognition Psych Appearance: grossly normal Mental Status: mental status grossly normal Speech and movement: Normal speech and movement present Affect: normal affect Attitude: cooperative Assessment & Plan Assessment & Plan (1) Severe obstructive sleep apnea: Code(s): G47.33 - Obstructive sleep apnea (adult) (pediatric) Category: Medical (2) Status post CVA: Code(s): Z86.73 - Personal history of transient ischemic attack (TIA), and cerebral infarction without residual deficits Category: Medical Plan For h/o CVA in Mar 2023: Start CPAP 7 cmH2O nightly > 4 hrs. Reviewed importance of routinely cleaning and replacing CPAP supplies. Continue ASA, Atorvastatin, Clopidogrel. Advised to try to add small amounts salst and electrolytes. Discussed ordering vascular consult, however pt would like to consider. f/u in 6 months or sooner prn. Coding Level of Care Code Est Pt Level 4 (16165) Diagnoses Severe obstructive sleep apnea G47.33 Status post CVA Z86.73
[2023-12-11 10:57] VITALS: BP 124/72; PULSE 60; BMI 26.6
== END 2023-12-11 12:33 | disposition home or self-care (01) ==
PROVIDERS: PCP Internal Medicine; Visit Provider Nurse Practitioner Family
DX: G47.33 Obstructive sleep apnea (adult) (pediatric) (principal); Z86.73 Personal history of transient ischemic attack (TIA), and cerebral infarction without residual deficits
CPT/HCPCS: 99214

== ENCOUNTER → 2023-12-11 10:53 | Outpatient (BNVA) | payer MEDICARE, SELFPAY | PROVIDERS: PCP Internal Medicine; Visit Provider Nurse Practitioner Family | DX: G47.33 Obstructive sleep apnea (adult) (pediatric) (principal); Z86.73 Personal history of transient ischemic attack (TIA), and cerebral infarction without residual deficits | CPT/HCPCS: 99212 ==

== ENCOUNTER 2024-03-03 13:00 | Outpatient (RCR) | payer MEDICARE, SELFPAY ==
--- NOTE | 2024-01-08 13:31 | MHC.SL.SOA ---
Referring Provider: Silvio Kothari MD Reason for Referral: Memory, word finding issues Date of Plan of Treatment: 08/17/23 Onset of Symptoms/Illness: 04/08/23 Date Treatment Started: 08/17/23 Medical Diagnosis: MCI Primary Speech Language Diagnosis: R41.841 Cognitive communication disorder Number of Authorized Visits Remainin Reason for Visit:[id number] Individual Treatment Subjective: Jean Marie has made very good progress during his treatment period. He has been seen for 8 treatment visits of his requested 10. Unfortunately he has had several absences due to forgetfulness, Covid exposure, or CLERK TELEGRAPH SERVICE availability. He still has 2 visits left from his original plan of care and this progress note is to petition for an end date extension. Objective: Jean Marie has been working towards the following short-term goals this treatment period: STG1: Pt will demonstrate knowledge of the 5 attention types with >80% accuracy independently. GOAL MET STG2: Pt will complete complex logic puzzles with use of compensatory strategies with >80% accuracy. GOAL CONTINUED STG3: Pt will increase short-term recall of 5 item lists with >80% accuracy and minimal assistance. GOAL CONTINUED STG4: Pt/Caregiver will complete weekly assigned HEP tasks with >80% accuracy independently. 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 He will continue to benefit from a short course of Cognitive-Communication therapy to provide education and stimulate interest in cognitively engaging activities that he can continue to engage with after treatment. We are approaching the end of our goals. Treatment will now focus on transferring treatment goals to home and community to facilitate maintenance and generalization. Plan: Goal # : STG1: Pt will demonstrate knowledge of the 5 attention types with >80% accuracy independently. Status of Goal: Goal Met Goal 1 Objective: Jean Marie is able to reference the attention types (focussed, sustained, selective, alternating, and divided) in activities of daily life. He as demonstrated the ability to analyze a task, identify the attention levels needed, and generate compensatory strategies depending on anticipated areas of difficulty. Goal # : STG2: Pt will complete complex logic puzzles with use of compensatory strategies with >80% accuracy. Status of Goal: Goal Continued Goal 2 Objective: Jean Marie has made very good progress towards this goal, however he continues to require skilled prompts and cues to utilize compensatory strategies such as note taking, crossing out, or using visual diagrams. Goal # : STG3: Pt will increase short-term recall of 5 item lists with >80% accuracy and minimal assistance. Status of Goal: Goal Continued Goal 3 Objective: Jean Marie has only recently begun to address this goal though strategies such as note-taking and chaining associations between related and unrelated word lists. He has been highly successful when cued to use these strategies, but continues to require skilled support in implementing them. Goal # : STG4: Pt/Caregiver will complete weekly assigned HEP tasks with >80% accuracy independently. Status of Goal: Goal Continued Goal 4 Objective: Overall Jean Marie has been very good about returning his HEP, however this goal is continued given that he will sporadically miss a week without apparent reason. Seen by: Graduate/Clinical Fellow: No Supervisory Statement: N/a Speech Language Pathologist: Felix Savage M.A., CCC-CLERK TELEGRAPH SERVICE
--- NOTE | 2024-03-24 14:54 | MHC.SL.SOA ---
Referring Provider: Silvio Kothari MD Reason for Referral: Memory, word finding issues Date of Plan of Treatment:08/17/23 Onset of Symptoms/Illness:04/08/23 Date Treatment Started:08/17/23 Medical Diagnosis:MCI Primary Speech Language Diagnosis:R41.841 Cognitive communication disorder Number of Authorized Visits Remainin Reason for Visit:[id number] Individual Treatment Subjective: This is a formal discharge for Jean Marie Bose (: 1945). He was initially evaluated on 08/17/23 and attended 15 treatment visits, including today. Objective: The following goals were target during his treatment period: STG1: Pt will demonstrate knowledge of the 5 attention types with >80% accuracy independently. STG2: Pt will complete complex logic puzzles with use of compensatory strategies with >80% accuracy. STG3: Pt will increase short-term recall of 5 item lists with >80% accuracy and minimal assistance. STG4: Pt/Caregiver will complete weekly assigned HEP tasks with >80% accuracy independently. Jean Marie completed re-assessment using the R-BANS Form B on 02/18/24. His scores are reported below. Index Scores in parenthesis are from his initial testing on 08/17/23. Index Score(s) Immediate Mem.: 78 (78) Visuospatial: 84 (78) Language: 96 (105) Attention: 91 (97) Delayed Mem.: 98 (81) Total Scale: 83 (85) While total scale score and the majority of the other scores remained within 95% confidence interval, there was a notable improvement for Delayed Memory. During today's visit we spent the majority of our time reviewing old worksheets that were in his file to go over how far we have come. When we were finished, he requested to keep the folder so he could review it at home. 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 He has completed a short course of Cognitive-Communication therapy to provide education and stimulate interest in cognitively engaging activities that he will engage with after discharged. Jean Marie has many positive traits that will keep him cognitively stimulated moving forward, not the least of which is a close social network in the community. He is encouraged to continue seeking activities that are new to him and will encourage on-going learning. When asked Jean Marie agrees that he has taken what he can from treatment at this time. He is encouraged to seek re-referral if anything changes with his mental status. Plan: Goal # : STG1: Pt will demonstrate knowledge of the 5 attention types with >80% accuracy independently. Status of Goal: Discharge Goal Goal # : STG2: Pt will complete complex logic puzzles with use of compensatory strategies with >80% accuracy. Status of Goal: Discharge Goal Goal # : STG3: Pt will increase short-term recall of 5 item lists with >80% accuracy and minimal assistance. Status of Goal: Discharge Goal Goal # : STG4: Pt/Caregiver will complete weekly assigned HEP tasks with >80% accuracy independently. Status of Goal: Discharge Goal Seen by: Graduate/Clinical Fellow: No Supervisory Statement: N/a Speech Language Pathologist: Felix Savage M.A., CCC-SPECIAL AGENT [employer]
== END 2024-03-24 15:56 | disposition home or self-care (01) ==
LOC: HO.SH 13:00
PROVIDERS: PCP Internal Medicine; Visit Provider Internal Medicine
DX: I63.9 Cerebral infarction, unspecified (principal)
CPT/HCPCS: 92507

== ENCOUNTER 2024-05-13 09:36 | Outpatient (AMB) | payer MEDICARE, SELFPAY ==
[2024-05-13 09:37] VITALS: BP 126/82; PULSE 69; O2SAT 99; BMI 26.1
--- NOTE | 2024-05-13 09:37 | A.OFFPC_ITS ---
Vital Signs 05/13/24 09:37 Height 5 ft 11 in Weight 187 lb BMI 26.1 BP 126/82 Blood Pressure Location Lt brachial Position Sitting Pulse 69 Pulse Source Pulse Oximeter Pulse Oximetry (%) 99 Oxygen Delivery Method Room Air Intake Visit Reasons: 6mth f/u - see comments Vice President Business Development Required: No Accompanied by: Self / Same As Patient Allergies brimonidine [BRIMONIDINE] Allergy (Intermediate, Verified 05/13/24 10:18) ITCHING Medication List - Last Reconciled 05/13/24 by Silvio Kothari MD ascorbate calcium (vitamin C) 1,000 mg PO DAILY aspirin 81 mg PO DAILY atorvastatin 80 mg PO BEDTIME 90 days cholecalciferol (vitamin D3) 50 mcg PO DAILY 90 days clopidogrel 75 mg PO DAILY 90 days multivitamin 1 tab PO DAILY Tobacco use date assessed: 05/13/24 Fall risk assessment: No Falls in past year Last assessed Fall Risk: 05/13/24 Dental Screening Dental Screen Date: 05/13/24 Did you have a dental visit in the last 12 months?: Yes Did you have a dental problem in the last 6 months where you did not have access to dental care?: No Was dental information given to patient?: Patient has dentist HPI 6mth f/u - see comments HPI Details Patient comes in today for his follow up visit States that he feels okay He denies any headaches or dizziness Denies any chest pains, no SOB No nausea/vomiting, no abdominal pain No change in bowel habits noted although he reports experiencing constipation off and on lately He would like to know how he did on his labs that were done back in November 2023 [facility] Medical History Pure hypercholesterolemia Impaired fasting glucose Status post CVA Overweight (BMI 25.0-29.9) Lumbar disc herniation with radiculopathy Acute CVA (cerebrovascular accident) Vitamin D deficiency Constipation Benign localized hyperplasia of prostate with urinary retention COVID-19 Surgical History S/P TURP (status post transurethral resection of prostate) (~05/01/22) History of colonoscopy History of cataract surgery History of tonsillectomy History of appendectomy History of umbilical hernia repair History of hernia surgery Family History Mother No problems noted. Father No problems noted. Social History Household Members: Children Housing: House Do you presently have visiting nurse or other home services: No Alcohol intake: former Year quit: 02/06 Patient Tobacco Use Status: Former Tobacco user Tobacco use type: Cigarette e-Cigarette/Vaping Use: Never Used Second Hand Smoke Exposure: No Substance Use Type: Marijuana service: No Current occupational status: retired Cognitive needs: No Hearing needs: No Vision needs: Yes (glasses) Questionnaire PHQ-9 Over the last 2 weeks, how often have you been bothered by any of the following problems? 1. Little interest or pleasure in doing things: not at all 2. Feeling down, depressed, or hopeless: not at all 3. Trouble falling or staying asleep, or sleeping too much: not at all 4. Feeling tired or having little energy: not at all 5. Poor appetite or overeating: not at all 6. Feeling bad about yourself - or that you are a failure or have let yourself or your family down: not at all 7. Trouble concentrating on things, such as reading the newspaper or watching television: not at all 8. Moving or speaking so slowly that other people could have noticed. Or the opposite - being so fidgety or restless that you have been moving around a lot more than usual: not at all 9. Thoughts that you would be better off or of hurting yourself in some way: not at all Total score: 0 Depression Screening Interpretation: Negative Depression Screening Done: Yes 48093 - PHQ-9 Billing: Yes Source: Developed by Drs. Rory Garay, Jackie Guzman, Uvaldo Milian and colleagues, with an educational lakia from [employer]. Thrive Questionnaire Date Thrive assessed: 05/13/24 I am a: Patient What is your living situation today?: I have a steady place to live Within the past 12 months, did the food you bought not last and you didn't have the money to get more?: Never true Within the past 12 months, did you worry whether your food would run out before you got money to buy more?: Never true Do you have trouble paying for medicines?: No Do you have trouble getting transportation to medical appointments?: No Do you have trouble paying your heating and electricity bill?: No Do you have trouble taking care of your child, family member or friend?: No Do you have trouble with day-to-day activities such as bathing, preparing meals, shopping, managing finances, etc.?: No Are you currently unemployed and looking for a job?: No Are you interested in more education?: No Please select the resources that you would like help with: None Currently or been in a relationship where the following occur: No concerns reported THRIVE Score: 0 AUDIT C Alcohol Use Questionnaire (AUDIT-C) 1. How often do you have a drink containing alcohol?: Never 3. How often do you have six or more drinks on one occasion?: Never Total Score: 0 Score Reviewed/Action Taken: Yes TANGELA-7 AMB Questionnaire TANGELA-7 Date TANGELA - 7 assessed: 05/13/24 Feeling nervous, anxious, or on edge: 0 = Not at all Not being able to stop or control worryin = Not at all Worrying too much about different things: 0 = Not at all Trouble relaxin = Not at all Being so restless that it is hard to sit still: 0 = Not at all Becoming easily annoyed or irritable: 0 = Not at all Feeling afraid as if something awful might happen: 0 = Not at all Total TANGELA-7 score (0-4 normal; 5-9 mild; 10-14 moderate; 15-21 severe): 0 Source: Developed by Drs. Rory Garay, Jackie Guzman, Uvaldo Milian and colleagues, with an educational lakia from [employer]. TANGELA-7 Assessment Billing TANGELA-7 Assessment Tool: TANGELA-7 Assessment 05996 Review of Systems Const Denies chills, Denies fatigue, Denies fever(s) and Denies headache(s) ENT Denies dysphagia, Denies dizziness, Denies otalgia, Denies headache(s), Denies neck pain, Denies odynophagia and Denies sore throat Card Denies chest pain, Denies palpitations and Denies dyspnea Resp Denies chest congestion, Denies cough and Denies dyspnea GI Denies abdominal pain, Reports constipation (on and off), Denies dysphagia, Denies diarrhea, Denies nausea, Denies odynophagia and Denies vomiting Denies difficulty urinating, Denies dysuria, Denies nocturia and Denies urinary frequency Musc Denies back pain and Denies neck pain Skin/Breast Denies rash Neuro Denies Abnormal speech present (but still has some trouble with word recall occasionally), Denies dizziness and Denies headache(s) Psych Denies anxiety and Denies depression Endo Denies fatigue and Denies palpitations Physical exam (Primary Care) Vital Signs: Last Vital Signs Pulse 69 05/13/24 09:37 BP 126/82 05/13/24 09:37 Pulse Ox 99 05/13/24 09:37 Oxygen Delivery Method Room Air 05/13/24 09:37 BMI result Body Mass Index 26.1 Tobacco/Smoking Status: Tobacco use Status Tobacco use date assessed 05/13/24 05/13/24 09:42 Patient Tobacco Use Status Former Tobacco user 05/13/24 09:42 Tobacco use type Cigarette 05/13/24 09:42 e-Cigarette/Vaping Use Never Used 05/13/24 09:42 PHQ-9: PHQ-9 Score PHQ-9: Total score 0 05/13/24 10:24 Depression Screening Interpretation: Negative Thrive Assessment: Date of Thrive Assessment Date Thrive assessed 05/13/24 05/13/24 09:42 Currently or been in a relationship where the following occur: No concerns reported Const General: no acute distress and alert HENMT Ears: TM's normal bilaterally and EAC's normal Throat: Yes posterior oropharynx normal and Yes tonsils normal (no TP congestion) Neck Neck: Yes no lymphadenopathy and Yes supple Thyroid: Thyroid normal Resp Auscultation: clear to auscultation bilaterally, no rales and no wheezes Cardio Rate: regular rate Rhythm: regular rhythm Heart sounds: no murmurs GI Palpation (GI): Soft to palpation and nontender Auscultation: normal bowel sounds General: Yes no CVA tenderness Back/Spine/Pelvis Back: no CVA tenderness Thoracic/Lumbar Spine: No lumbar spinal tenderness Skin Rashes: no rashes Neuro Speech: No Abnormal speech present (but still has some trouble with word recall occasionally) Extrem General: Yes no clubbing, cyanosis or edema Results Reviewed Results Reviewed: Laboratory Tests 11/20/23 07:15 WBC 10.1 Hgb 16.3 Hct 48.0 Plt Count 219 Sodium 142 Potassium 4.4 Creatinine 1.01 Estimated GFR > 60 Fasting Glucose 101 H Calcium 9.8 AST 19 ALT 25 Triglycerides 52 Cholesterol 112 LDL Cholesterol, Calc 56 HDL Cholesterol 46 PSA Screen 3.77 Vitamin B12 618 25-OH Vitamin D Total 53.7 Folate 16.1 TSH 2.09 Coding Level of Care Code Est Pt Level 4 (15467) Diagnoses Status post CVA Z86.73 Right internal carotid occlusion I65.21 Pure hypercholesterolemia E78.00 Severe obstructive sleep apnea G47.33 Impaired fasting glucose R73.01 Vitamin D deficiency E55.9 Rosacea L71.9 Benign localized hyperplasia of prostate with urinary retention N40.1; R33.8 Constipation, unspecified constipation type K59.00 Constipation type: unspecified constipation type Overweight (BMI 25.0-29.9) E66.3 Additional Codes TANGELA-7 Assessment Billing - TANGELA-7 Assessment Tool: TANGELA-7 Assessment 13668 ([id number]) PHQ-9 - 00754 - PHQ-9 Billing: Yes ([id number]) Assessment & Plan Assessment & Plan (1) Status post CVA: Code(s): Z86.73 - Personal history of transient ischemic attack (TIA), and cerebral infarction without residual deficits Category: Medical Plan: Brain MRI done on 04/08/2023 revealed (+) few small acute infarcts within the left RICK territory involving the left cingulate gyrus and the left parasagittal frontal lobe, the latter at the high convexity at the level of the left frontal precentral gyrus. There is no mass effect and there is no hemorrhagic transformation. Absent right internal carotid artery flow void suggesting slow flow within versus occlusion of the right internal carotid artery which would be better assessed with a CTA of the head and neck. There is global cerebral volume loss and there is mild to moderate chronic microangiopathy CTA of the head and neck done subsequently revealed (+) evolving acute infarcts in the left RICK territory Continue Aspirin 81 mg QD and Clopidogrel 75 mg QD States that he also physical therapy subsequently and that his right leg function was back to his baseline after his PT He continues to have some word finding difficulty/recall and has been referred to the speech center for speech and cognitive therapy Follow up with neurology as scheduled (2) Right internal carotid occlusion: Code(s): I65.21 - Occlusion and stenosis of right carotid artery Category: Medical Plan: CTA of the head and neck done in March 2023 revealed (+) evolving acute infarcts in the left RICK territory although these were better appreciated on his MRI. No significant mass effect or hemorrhagic transformation and no new territorial loss of monte-white differentiation are seen. (+) focally occluded distal A4 branch of the left RICK with reconstitution distally and occluded right ICA just beyond its origin and throughout the reconstituted supraclinoid segment via of the [place] Patient is advised to continue on dual antiplatelet therapy with Aspirin and Clopidogrel and on high-dose statin (Atorvastatin 80 mg) To consider referring him to vascular surgery in the future for intervention of this if appropriate (3) Pure hypercholesterolemia: Code(s): E78.00 - Pure hypercholesterolemia, unspecified Category: Medical Plan: Results of his labs done back in November 2023 reviewed and discussed with patient Reinforced low cholesterol diet Continue Atorvastatin 80 mg QD Will recheck his labs and fasting lipids in 6 months for follow up (4) Severe obstructive sleep apnea: Code(s): G47.33 - Obstructive sleep apnea (adult) (pediatric) Category: Medical Plan: An initial home sleep study done on 10/13/2023 revealed (+) severe obstructive sleep apnea Repeat sleep study with CPAP titration done subsequently recommended starting CPAP therapy at 7 cm pressure Follow up with Sleep Medicine as scheduled (5) Impaired fasting glucose: Code(s): R73.01 - Impaired fasting glucose Category: Medical Plan: His FBS was borderline elevated on his previous labs in November 2023 but his HgbA1c came back normal at 5.2% when checked a few months ago Reinforced low calorie diet /exercise as tolerated (6) Vitamin D deficiency: Code(s): E55.9 - Vitamin D deficiency, unspecified Category: Medical Plan: Continue Vitamin D3 2000 units QD (7) Rosacea: Code(s): L71.9 - Rosacea, unspecified Category: Medical Plan: Continue Clindamycin 1% apply to rash on face QD Follow up with dermatology as scheduled (8) Benign localized hyperplasia of prostate with urinary retention: Code(s): N40.1 - Benign prostatic hyperplasia with lower urinary tract symptoms; R33.8 - Other retention of urine Category: Medical Plan: S/P TURP in April 2022 Recent biopsy showed no malignancy on pathology Follow up with urology as scheduled (9) Constipation: Code(s): K59.00 - Constipation, unspecified Category: Medical Qualifiers: Constipation type: unspecified constipation type Qualified Code(s): K59.00 - Constipation, unspecified Plan: Reinforced increased oral fluids and dietary fiber Can take OTC stool softener PRN Advised patient that he can also try drinking a glass of prune juice daily to help with his constipation (10) Overweight (BMI 25.0-29.9): Code(s): E66.3 - Overweight Category: Medical Plan: Reinforced diet/exercise as tolerated/lose weight Plan To return in 6 months for his AWV and follow up visit Orders: Orders Comprehensive [place]. Panel Fast 10/29/24 E78.00 - Pure hypercholesterolemia, unspecified Lipid Panel 10/29/24 E78.00 - Pure hypercholesterolemia, unspecified Complete Blood Count Auto Diff 10/29/24 D64.9 - Anemia, unspecified TSH reflex Free T4 10/29/24 E78.00 - Pure hypercholesterolemia, unspecified UA CC w/rflx Micro + Cult 10/29/24 R30.0 - Dysuria Vitamin D 25-OH Total 10/29/24 E55.9 - Vitamin D deficiency, unspecified Vitamin B12 and Folate 10/29/24 E53.8 - Deficiency of other specified B group vitamins
--- OUTSIDE RECORDS SUMMARY | 2024-05-13 09:51 | XMS_ITS ---
Author Organization [facility] cody OrtizDavonte Address [address] [facility] [place] [address] Care Team Providers Care Vendette Name Role Phone Taye YIN, Silvio Primary Care Provider Mouna Love Unavailable [phone] Allergies No Known Allergies REASON FOR VISIT Painful nail(s) aggravated by shoes causing difficulty standing/walking Medications Medication SIG (Take, Route, Frequency, Duration) Notes Start Date End Date Status Naproxen 500 MG 1 tablet with food o r milk as needed Orally every 12 hrs Not-Taking Keflex 500 MG 1 capsule Orally nelida ry 12 hrs for 7 days 07/30/2018 Not-Taking ProAir HFA 108 (90 Base) MCG/ACT 2 puffs as needed Inhalation every 6 hrs PRN Not-Takin g Latanoprost 0.005 % 1 drop into affected eye in the evening Ophthalmic Once a day Not-Taking Triamcinolone Acetonide 0.1 % 1 application to affected area Externally Twice a day Not-Takin g Ciclopirox 0.77 % 1 application Externally Twice a day for 90 days 05/27/2022 Active Ciclopirox Olamine 0.77 % APPLY TO EFFEC MANNY AREAS EXTERNALY TWICE A DAY 30 DAYS for 30 Active Vitamin D3 Active Vitamin C 1000 MG 1 tablet Orally Once a day for 30 day(s) Active Apple Cider Vinegar Not-Taking Aspirin 81 MG 1 tablet Orally Once a day Active Multi Complete - as directed Orally Active Atorvastatin Calcium 80 MG 1 tablet Orally Once a day Active Clopidogrel & Aspirin Active Social History Tobacco Use: Social History Observation Description Date Details (start date - stop date) Former Smoker NA - NA Tobacco Use/Smoking Question Answer Notes Are you a: former smoker Additional Findings: Tobacco Non-User Cu rrent non-smoker,Ex-heavy cigarette smoker (20-30/day) Tobacco use other than smoking: Question Answer Notes Are you an other tobacco user? No Vital Signs Height 5ft 11in in 03/16/2024 Weight 187 lbs 03/16/2024 BMI 26.08 kg/m2 03/16/2024 Encounters Encounter Location Date Provider Diagnosis [facility] [place] [address] [place] [address] 03/16/2024 Mouna Gongora Tinea unguium B35.1 ; Pain in right toe(s) M79.674 and Pain in left toe(s) M79.675 Assessments Encounter Date Diagnosis (ICD Code) Assessment Notes Treatment Notes Treatment Clinical Notes Section Notes 03/16/2024 Tinea unguium (ICD-10 - B35.1) 03/16/2024 Pain in right toe(s) (ICD-10 - M79.674) 03/16/2024 Pain in left toe(s) (ICD-10 - M79.675) Plan Of Treatment Next Appt Details Follow Up: 3 Months, Reason: Provider Name:Mouna snyder, 06/15/2024 09:00:00 AM, [address] [place], [address], Procedure Notes * Category Sub-Category Detail Notes Debride Nail 6-10 Nail debridement Nail debridem ent performed extensively to reduce/remove overall nail length and girth, subungual debris, and necrotic tissue, by manual and electrical means with use of a nail nipper and/or dremel, to more viable healthy nail plate or bed tissue 6-10. Silver nitrate used for any petechial bleeding as necessary. Patient chooses, no pharmaceutical tx ([id number]) Progress Notes * Jean Marie BOSE PDOB:[birth year] (78 yo M)Acc No.[id number]:03/16/2024 Progress Note Patient:?Jean Marie Bose Provider:?Mouna Gongora DPM :1945???Age:78 Y???Sex:Male Lenin e:03/16/2024 Address:[address] [place], [place] [id number] Pcp:Silvio Kothari MD Subjective: * Chief Complaints: * ???Painful nail(s) aggravate d by shoes causing difficulty standing/walking * HPI: ???Painful Nails:?Pt States Last PCP Visit:?Date:?09/16/2023 * ROS:?General/Constitutional:?Nausea?denies, denies, denies, denies, denies, denies, denies, denies, denies, denies, denies, denies, denies.?Vomiting?denies, denies, denies, denies, denies, denies, denies, denies, denies, denies, denies, denies, denies.?Hunger Thirst?denies, denies, denies, denies, denies, denies, denies, denies, denies, denies, denies, denies, denies.?Loss appetite?denies, denies, denies, denies, denies, denies, denies, denies, denies, denies, denies, denies, denies.?Chills?denies, denies, denies, denies, denies, denies, denies, denies, denies, denies, denies, denies, denies.?Fatigue?denies, denies, denies, denies, denies, denies, denies, denies, denies, denies, denies, denies, denies.?Fever?denies, denies, denies, denies, denies, denies, denies, denies, denies, denies, denies, denies, denies.?Night Sweats?denies, denies, denies, denies, denies, denies, denies, denies, denies, denies, denies, denies, denies.?Unexplained weight loss?denies, denies, denies, denies, denies, denies, denies, denies, denies, denies, denies, denies, denies.?Unexplained weight gain?denies, denies, denies, denies, denies, denies, denies, denies, denies, denies, denies, denies, denies.?HEENTM:?Dentures?denies, denies, denies, denies, denies, denies, denies, denies, denies, denies, denies, denies, denies.?Dizziness?denies, denies, denies, denies, denies, denies, denies, denies, denies, denies, denies, denies, denies.?Glasses/contacts?admits, admits, admits, admits, admits, denies, admits, admits, admits, admits, admits, admits, admits.?Retinopathy?denies, denies, denies, denies, denies, denies, denies, denies, denies, denies, denies, denies, denies.?Blurred/double vision?denies, denies, denies, denies, denies, denies, denies, denies, denies, denies, denies, denies, denies.?TMJ?denies, denies, denies, denies, denies, denies, denies, denies, denies, denies, denies, denies, denies.?Discharge/drainage?denies, denies, denies, denies, denies, denies, denies, denies, denies, denies, denies, denies, denies.?Implants?denies, denies, denies, denies, denies, denies, denies, denies, denies, denies, denies, denies, denies.?Sore throat?denies, denies, denies, denies, denies, denies, denies, denies, denies, denies, denies, denies, denies.?Dental implants?denies, denies, denies, denies, denies, denies, denies, denies, denies, denies, denies, denies, denies.?Hard of hearing ?denies, denies, denies, denies, denies, denies, denies, denies, denies, denies, denies, denies, denies.?Difficulty chewing/swallowing/speaking?denies, denies, denies, denies, denies, denies, denies, denies, denies, denies, denies, denies, denies.?Nose bleeds?denies, denies, denies, denies, denies, denies, denies, denies, denies, denies, denies, denies, denies.?Sore mouth?denies, denies, denies, denies, denies, denies, denies, denies, denies, denies, denies, denies, denies.?Respiratory:?On Oxygen?denies, denies, denies, denies, denies, denies, denies, denies, denies, denies, denies, denies, denies.?Pneumonia/pleurisy?denies, denies, denies, denies, denies, denies, denies, denies, denies, denies, denies, denies, denies.?Bronchitis?denies, denies, denies, denies, denies, denies, denies, denies, denies, denies, denies, denies, denies.?Emphysema?denies, denies, denies, denies, denies, denies, denies, denies, denies, denies, denies, denies, denies.?Coughing?denies, denies, denies, denies, denies, denies, denies, denies, denies, denies, denies, denies, denies.?Cough blood?denies, denies, denies, denies, denies, denies, denies, denies, denies, denies, denies, denies, denies.?Shortness of breath?denies, denies, denies, denies, denies, denies, denies, denies, denies, denies, denies, denies, denies.?Wheezing?denies, denies, denies, denies, denies, denies, denies, denies, denies, denies, denies, denies, denies.?Cardiovascular:?Pacemaker?denies, denies, denies, denies, denies, denies, denies, denies, denies, denies, denies, denies, denies.?MVP?denies, denies, denies, denies, denies, denies, denies, denies, denies, denies, denies, denies, denies.?WPW?denies, denies, denies, denies, denies, denies, denies, denies, denies, denies, denies, denies, denies.?CHF?denies, denies, denies, denies, denies, denies, denies, denies, denies, denies, denies, denies, denies.?Heart attack?denies, denies, denies, denies, denies, denies, denies, denies, denies, denies, denies, denies, denies.?Septal defect?denies, denies, denies, denies, denies, denies, denies, denies, denies, denies, denies, denies, denies.?Rapid beat?denies, denies, denies, denies, denies, denies, denies, denies, denies, denies, denies, denies, denies.?Chest pain ?denies, denies, denies, denies, denies, denies, denies, denies, denies, denies, denies, denies, denies.?Atrial Fib.?denies, denies, denies, denies, denies, denies, denies, denies, denies, denies, denies, denies, denies.?Murmur/Palpitations?denies, denies, denies, denies, denies, denies, denies, denies, denies, denies, denies, denies, denies.?Gastrointestinal:?Hemorrhoids?denies, denies, denies, denies, denies, denies, denies, denies, denies, denies, denies, denies, denies.?Stomach/Abdominal pain?denies, denies, denies, denies, denies, denies, denies, denies, denies, denies, denies, denies, denies.?Dark blood stool?denies, denies, denies, denies, denies, denies, denies, denies, denies, denies, denies, denies, denies.?Irritable bowel ?denies, denies, denies, denies, denies, denies, denies, denies, denies, denies, denies, denies, denies.?Constipation?denies, denies, denies, denies, denies, denies, denies, denies, denies, denies, denies, denies, denies.?Diarrhea?denies, denies, denies, denies, denies, denies, denies, denies, denies, denies, denies, denies, denies.?Hematology:?Swelling?denies, denies, denies, denies, denies, denies, denies, denies, denies, denies, denies, denies, denies.?Clots?denies, denies, denies, denies, denies, denies, denies, denies, denies, denies, denies, denies, denies.?Varicose Veins?denies, denies, denies, denies, denies, denies, denies, denies, denies, denies, denies, denies, denies.?Bruising?denies, denies, denies, denies, denies, denies, denies, denies, denies, denies, denies, denies, denies.?Bleeding problem?denies, denies, denies, denies, denies, denies, denies, denies, denies, denies, denies, denies, denies.?Genitourinary:?Blood urine?denies, denies, denies, denies, denies, denies, denies, denies, denies, denies, denies, denies, denies.?Frequent/Painfu/urination/bladder control?denies, denies, denies, denies, denies, denies, denies, denies, denies, denies, denies, denies, denies.?Kidney stones?denies, denies, denies, denies, denies, denies, denies, denies, denies, denies, denies, denies, denies.?Infection (UTI)?denies, denies, denies, denies, denies, denies, denies, denies, denies, denies, denies, denies, denies.?Nephropathy?denies, denies, denies, denies, denies, denies, denies, denies, denies, denies, denies, denies, denies.?sex trans dis (STD)?denies, denies, denies, denies, denies, denies, denies, denies, denies, denies, denies, denies, denies.?Prostate?denies, denies, denies, denies, denies, denies, denies, denies, denies, denies, denies, denies, denies.?Musculoskeletal:?Hammertoes?denies, denies, denies, denies, denies, denies, denies, denies, denies, denies, denies, denies, denies.?Bunions?denies, denies, denies, denies, denies, denies, denies, denies, denies, denies, denies, denies, denies.?Back Pain?denies, denies, denies, denies, denies, denies, denies, denies, denies, denies, denies, denies, denies.?Muscle Cramps/ Resting?denies, denies, denies, denies, denies, admits, denies, denies, denies, denies, denies, denies, denies.?Muscle cramps / walking?denies, denies, denies, denies, denies, admits, denies, denies, denies, denies, denies, denies, denies.?Generalized aches and pains?denies, denies, denies, denies, denies, denies, denies, denies, denies, denies, denies, denies, denies.?Weakness?denies, denies, denies, denies, denies, denies, denies, denies, denies, denies, denies, denies, denies.?Integ.:?Iraheta?denies, denies, denies, denies, denies, denies, denies, denies, denies, denies, denies, denies, denies.?Scars?denies, denies, denies, denies, denies, denies, denies, denies, denies, denies, denies, denies, denies.?Corns/calluses?admits, admits, admits, admits, admits, denies, denies, denies, admits, admits, admits, admits, admits.?Ingrown nails?admits, admits, admits, admits, admits, denies, denies, admits, admits, admits, admits, admits, admits.?Painful nails?denies, denies, denies, denies, denies, denies, denies,admits, denies, denies, denies, denies, denies.?Open Sores?denies, denies, denies, denies, denies, denies, denies, denies, denies, denies, denies, denies, denies.?Rashes?denies, denies, denies, denies, denies, denies, denies, denies, denies, denies, denies, denies, denies.?Neurologic:?Difficulty sleeping?denies, denies, denies, denies, denies, denies, denies, denies, denies, denies, denies, denies, denies.?Brain disorder?denies, denies, denies, denies, denies, denies, denies, denies, denies, denies, denies, denies, denies.?Numbness?denies, denies, denies, denies, denies, denies, denies, denies, denies, denies, denies, denies, denies.?Balance trouble?denies, denies, denies, denies, denies, denies, denies, denies, denies, denies, denies, denies, denies.?Confusion?denies, denies, denies, denies, denies, denies, denies, denies, denies, denies, denies, denies, denies.?Fainting/blackouts?denies, denies, denies, denies, denies, denies, denies, denies, denies, denies, denies, denies, denies.?Tingling?denies, denies, denies, denies, denies, denies, denies, denies, denies, denies, denies, denies, denies.?Tremors?denies, denies, denies, denies, denies, denies, denies, denies, denies, denies, denies, denies, denies.? * Medical History:? * Surgical History:?hernia Cat aract surgery both eyes- Glaucoma right eye only 10/25/2018-11/08/2018 * Hospitalization/Major Diagno stic Procedure:?UTI stroke * Family History:?Mother: dece ased.?Father: , diagnosed with Unspecified heart disease.? * Social History:?Tobacco Use:?Tobacco Use/Smoking?Are you a:?former smoker ?Additional Findings: Tobacco Non-User?Current non-smoker,Ex-heavy cigarette smoker (20-30/day) ?Tobacco use other than smoking?Are you an other tobacco user??No ???Miscellaneous:?Caffeine: yes, more than 4 cups per day. ?Children: yes. ?Exercise: yes, walking. ?Marital status: . 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 * Medications:?TakingClopidogr el & Aspirin Atorvastatin Calcium 80 MG Tablet 1 tablet Orally Once a dayAspirin 81 MG Tablet Chewable 1 tablet Orally Once a dayMulti Complete - Capsule as directed Orally Vitamin D3 Vitamin C 1000 MG Tablet 1 tablet Orally Once a dayCiclopirox 0.77 % Gel 1 application Externally Twice a dayCiclopirox Olamine 0.77 % Cream APPLY TO EFFECTED AREAS EXTERNALY TWICE A DAY 30 DAYS Taking Clopidogrel & Aspirin Taking Atorvastatin Calcium 80 MG Tablet 1 tablet Orally Once a dayTaking Aspirin 81 MG Tablet Chewable 1 tablet Orally Once a dayTaking Multi Complete - Capsule as directed Orally Taking Vitamin D3 Taking Vitamin C 1000 MG Tablet 1 tablet Orally Once a dayTaking Ciclopirox 0.77 % Gel 1 application Externally Twice a dayTaking Ciclopirox Olamine 0.77 % Cream APPLY TO EFFECTED AREAS EXTERNALY TWICE A DAY 30 DAYS Not-Taking/PRNApple Cider Vinegar ProAir HFA 108 (90 Base) MCG/ACT Aerosol Solution 2 puffs as needed Inhalation every 6 hrs, Notes: PRNNaproxen 500 MG Tablet 1 tablet with food or milk as needed Orally every 12 hrsKeflex 500 MG Capsule 1 capsule Orally every 12 hrsLatanoprost 0.005 % Solution 1 drop into affected eye in the evening Ophthalmic Once a dayTriamcinolone Acetonide 0.1 % Cream 1 application to affected area Externally Twice a dayMedication List reviewed and reconciled with the patientNot-Taking/PRN Apple Cider Vinegar Not-Taking/PRN ProAir HFA 108 (90 Base) MCG/ACT Aerosol Solution 2 puffs as needed Inhalation every 6 hrs, Notes: PRNNot-Taking/PRN Naproxen 500 MG Tablet 1 tablet with food or milk as needed Orally every 12 hrsNot-Taking/PRN Keflex 500 MG Capsule 1 capsule Orally every 12 hrsNot-Taking/PRN Latanoprost 0.005 % Solution 1 drop into affected eye in the evening Ophthalmic Once a dayNot-Taking/PRN Triamcinolone Acetonide 0.1 % Cream 1 application to affected area Externally Twice a dayMedication List reviewed and reconciled with the patient * Allergies:?N.K.D.A.yes[Aller gies Verified] Objective: * Vitals:?Ht: 5ft 11in, Wt: 18 7, BMI: 26.08, Shoe size: 9.5, Ht-cm: 180.34 cm, Wt- k.82 kg. * Examination: ???Nails: ?NAILS are:?Elongated, overgrown, dystrophic, lytic, greater than 3mm thick, discolored and friable with crumbly malodorous subungual debris, with pain on palpation, 1-5 B/L.?Dermatologic: ?SKIN FINDINGS:?Skin exam reveals normal color, texture, elasticity, and turgor. There are no masses, nor excrescences. The interspaces are clear, B/L.? Assessment: * Assessment: 1.?Tinea unguium - B35.1 (Pr imary)?2.?Pain in right toe(s) - M79.674?3.?Pain in left toe(s) - M79.675? Plan: * Treatment: * Procedures:?Debride Nail 6-10:?Nail debridement?Nail debridement performed extensively to reduce/remove overall nail length and girth, subungual debris, and necrotic tissue, by manual and electrical means with use of a nail nipper and/or dremel, to more viable healthy nail plate or bed tissue 6-10. Silver nitrate used for any petechial bleeding as necessary. Patient chooses, no pharmaceutical tx ([id number]).? * Procedure Codes:?[id number] DEBRI DE NAIL, 6 OR MORE, Modifiers: XS * Follow Up:?3 Months * Images: * Sign off status: Completed true * Provider:?Mouna Gongora DPM Date:? Generated for Nino bustamante/Matt/eTransmitting on:?05/13/2024 09:51 AM EST History and Physical Notes * HPI (History of Present Illness) Category Sub-Category Detail Notes Category Not es Painful Nails Pt States Last PCP Visit: Date:: 09/16/2023 Examination Category Sub-Category Detail Notes Category Not es Dermatologic SKIN FINDINGS: Skin exam reveal s normal color, texture, elasticity, and turgor. There are no masses, nor excrescences. The interspaces are clear, B/L Nails NAILS are: Elongated, overg rown, dystrophic, lytic, greater than 3mm thick, discolored and friable with crumbly malodorous subungual debris, with pain on palpation, 1-5 B/L
--- OUTSIDE RECORDS SUMMARY | 2024-05-13 09:51 | XMS_ITS ---
Author Organization 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 Name Role Phone Taye YIN, Silvio Primary Care Provider Mouna Love Unavailable [phone] Allergies No Known Allergies REASON FOR VISIT PCP: 05/2023, Painful nail(s) aggrevated by shoes causing difficulty standing/walking Medications Medication SIG (Take, Route, Frequency, Duration) Notes Start Date End Date Status Naproxen 500 MG 1 tablet with food o r milk as needed Orally every 12 hrs Not-Taking Latanoprost 0.005 % 1 drop into affected eye in the evening Ophthalmic Once a day Not-Taking Keflex 500 MG 1 capsule Orally nelida ry 12 hrs for 7 days 07/30/2018 Not-Taking Triamcinolone Acetonide 0.1 % 1 application to affected area Externally Twice a day Not-Takin g Clopidogrel & Aspirin Active Ciclopirox 0.77 % 1 application Externally Twice a day for 90 days 05/27/2022 Active Vitamin C 1000 MG 1 tablet Orally Once a day for 30 day(s) Active ProAir HFA 108 (90 Base) MCG/ACT 2 puffs as needed Inhalation every 6 hrs PRN Not-Takin g Apple Cider Vinegar Not-Taking Ciclopirox Olamine 0.77% external Apply to effected areas twice a day for 30 days 09/18/2022 Not-Taking Vitamin D3 Active Multi Complete - as directed Orally Active Aspirin 81 MG 1 tablet Orally Once a day Active Atorvastatin Calcium 80 MG 1 tablet Orally Once a day Active Social History Tobacco Use: Social History Observation Description Date Details (start date - stop date) Former Smoker NA - NA Tobacco Use/Smoking Question Answer Notes Are you a: former smoker Additional Findings: Tobacco Non-User Cu rrent non-smoker,Ex-heavy cigarette smoker (20-30/day) Alcohol Screen Question Answer Notes Did you have a drink containing alcohol in the p ast year? No Points 0 Interpretation Negative Tobacco use other than smoking: Question Answer Notes Are you an other tobacco user? No Vital Signs Height 5ft 11in in 09/16/2023 Weight 195 lbs 09/16/2023 BMI 27.19 kg/m2 09/16/2023 Blood pressure systolic 122 mm Hg 09/16/19 24 Blood pressure diastolic 80 mm Hg 024 Encounters Encounter Location Date Provider Diagnosis [facility] [address] [address] [place] [address] 09/16/2023 Mouna Irvingclaudio Tinea unguium B35.1 ; Other hammer toe(s) (acquired), left foot M20.42 ; Pain in right toe(s) M79.674 and Pain in left toe(s) M79.675 Assessments Encounter Date Diagnosis (ICD Code) Assessment Notes Treatment Notes Treatment Clinical Notes Section Notes 09/16/2023 Tinea unguium (ICD-10 - B35.1) 09/16/2023 Other hammer toe(s) (acquired), left foot (ICD-10 - M20.42) 09/16/2023 Pain in right toe(s) (ICD-10 - M79.674) 09/16/2023 Pain in left toe(s) (ICD-10 - M79.675) Plan Of Treatment Next Appt Details Follow Up: 3 Months, Reason: Provider Name:Mouna Snyder Irving snyder, 06/15/2024 09:00:00 AM, [address] [place], [address], Procedure Notes * Category Sub-Category Detail Notes [...] as necessary. Patient chooses, no pharmaceutical tx (40993) Progress Notes * Jean Marie BOSE:[birth year] (78 yo M)Acc No.[id number]:09/16/2023 Progress Note Patient:?Jean Marie Bose Provider:?Mouna Gongora DPM :1945???Age:78 Y???Sex:Male Lenin e:09/16/2023 Address:[address] [place] [address] Pcp:Silvio Kothari MD Subjective: * Chief Complaints: * ??? PCP: ainful nail (s) aggrevated by shoes causing difficulty standing/walking * HPI: ???Painful Nails:?Pt States Last PCP Visit:?Date:?06/10/2023 * ROS:?General/Constitutional:?Nausea?denies, denies, denies, denies, denies, denies, denies, denies, denies, denies, denies, denies.?Vomiting?denies, denies, denies, denies, denies, denies, denies, denies, denies, denies, denies, denies.?Hunger Thirst?denies, denies, denies, denies, denies, denies, denies, denies, denies, denies, denies, denies.?Loss appetite?denies, denies, denies, denies, denies, denies, denies, denies, denies, denies, denies, denies. Chills?denies, denies, denies, denies, denies, denies, denies, denies, [...] denies, denies, denies, denies.?Glasses/contacts?admits, admits, admits, admits, denies, admits, admits, admits, [...] denies, denies, denies, denies, denies, denies, denies, denies. Dental implants?denies, denies, denies, denies, denies, denies, denies, [...] denies, denies, denies, denies, denies, denies, denies.?Frequent/Painfu/urination/bladder control denies, denies, denies, denies, denies, denies, denies, denies, denies, denies, denies, denies.?Kidney stones?denies, denies, denies, denies, denies, denies, denies, denies, denies, denies, denies, denies.?Infection (UTI)?denies, denies, denies, denies, denies, denies, denies, denies, denies, denies, denies, denies.?Nephropathy?denies, denies, denies, denies, denies, denies, denies, denies, denies, denies, denies, denies.?sex trans dis (STD)?denies, denies, denies, denies, denies, denies, denies, denies, denies, denies, denies, denies.?Prostate denies, denies, denies, denies, denies, denies, denies, denies, denies, denies, denies, denies.?Musculoskeletal:?Hammertoes?denies, denies, denies, denies, denies, denies, denies, denies, denies, denies, denies, denies.?Bunions?denies, denies, denies, denies, denies, denies, denies, denies, denies, denies, denies, denies.?Back Pain?denies, denies, denies, denies, denies, denies, denies, denies, denies, denies, denies, denies.?Muscle Cramps/ Resting?denies, denies, denies, denies, admits, denies, denies, denies, denies, denies, denies, denies.?Muscle cramps / walking?denies, denies, denies, denies, admits, denies, denies, denies, denies, denies, denies, denies.?Generalized aches and pains?denies, denies, denies, denies, denies, denies, denies, denies, denies, denies, denies, denies.?Weakness?denies, denies, denies, denies, denies, denies, denies, denies, denies, denies, denies, denies.?Integ.:?Iraheta?denies, denies, denies, denies, denies, denies, denies, denies, denies, denies, denies, denies.?Scars?denies, denies, denies, denies, denies, denies, denies, denies, denies, denies, denies, denies.?Corns/calluses?admits, admits, admits, admits, denies, denies, denies, admits, admits, admits, admits, admits.?Ingrown nails?admits, admits, admits, admits, denies, denies, admits, admits, admits, admits, admits, admits. Painful nails?denies, denies, denies, denies, denies, denies,admits, denies, denies, [...] than smoking?Are you an other tobacco user??No ???Drugs/Alcohol:?Drugs?Have you used drugs other than those for medical reasons in the past 12 months??No ?Alcohol Screen?Did you have a drink containing alcohol in the past year??No ?Points?0 ?Interpretation?Negative ???Miscellaneous:?Caffeine: yes, more than 4 cups per [...] Gel 1 application Externally Twice a dayTaking Clopidogrel & Aspirin Taking Atorvastatin Calcium 80 MG Tablet 1 tablet Orally Once a dayTaking Aspirin 81 MG Tablet Chewable 1 tablet Orally Once a dayTaking Multi Complete - Capsule as directed Orally Taking Vitamin D3 Taking Vitamin C 1000 MG Tablet 1 tablet Orally Once a dayTaking Ciclopirox 0.77 % Gel 1 application Externally Twice a dayNot-Taking/PRNApple Cider Vinegar ProAir HFA 108 (90 Base) MCG/ACT Aerosol Solution 2 puffs as needed Inhalation every 6 hrs, Notes: PRNCiclopirox Olamine 0.77% Cream external Apply to effected areas twice a dayNaproxen 500 MG Tablet 1 tablet with food [...] needed Inhalation every 6 hrs, Notes: PRNNot-Taking/PRN Ciclopirox Olamine 0.77% Cream external Apply to effected areas twice a dayNot-Taking/PRN Naproxen 500 MG Tablet 1 tablet with [...] gies Verified] Objective: * Vitals:?Ht: 5ft 11in, Wt:195 , BMI:27.19, Shoe size:9.5, BP:122/80 mm Hg. * Examination: ???Nails: ?NAILS are:?Elongated, overgrown, dystrophic, lytic, greater than 3mm thick, discolored and friable with crumbly malodorous subungual debris, with pain on palpation, 1-5 B/L.?Orthopedic: ?MUSCLE STRENGTH:?5/5 all groups in a symmetrical fashion, B/L.?DIGITAL DEFORMITIES:? Digital contracture, PIPJ, 2-5 B/L, incompl- reducible with WB, or to push-up test, no over, nor underlapping Reveals pain/swelling/redness/enlargement of DIPJ T4 T9.?Dermatologic: ?SKIN FINDINGS:?Skin exam reveals normal color, texture, elasticity, and turgor. There are no masses, nor excrescences. The interspaces are clear, B/L.? Assessment: * Assessment: 1.?Tinea unguium - B35.1 (Pr imary)?2.?Other hammer toe(s) (acquired), left foot - M20.42, Chronic problem, Stable (1=3,2=4)?3.?Pain in right toe(s) - M79.674?4.?Pain in left toe(s) - M79.675? Plan: * [...] as necessary. Patient chooses, no pharmaceutical tx (08474).? * Procedure Codes:?12841 DEBRI DE NAIL, 6 OR MORE, Modifiers: XS * Follow Up:?3 Months * Images: * Sign off status: Completed true * Provider:?Mouna Gongora, DPM Date:?05/2023 Generated for Printi ng/Efraing/eTransmitting on:?05/13/2024 09:51 AM EST History and Physical Notes * HPI (History of Present Illness) Category Sub-Category Detail Notes Category Not es Painful Nails Pt States Last PCP Visit: Date:: 06/10/2023 Examination Category Sub-Category Detail Notes Category Not es Dermatologic SKIN FINDINGS: Skin exam reveal s normal color, texture, elasticity, and turgor. There are no masses, nor excrescences. The interspaces are clear, B/L Orthopedic DIGITAL DEFORMITIES: Digital con tracture, PIPJ, 2-5 B/L, incompl-reducible with WB, or to push-up test, no over, nor underlapping Reveals pain/swelling/redness/enlargement of DIPJ T4 T9 MUSCLE STRENGTH: 5/5 all groups in a symmetrical fashion, B/L Nails NAILS are: Elongated, overg rown, dystrophic, lytic, greater than 3mm thick, discolored and friable with crumbly malodorous subungual debris, with pain on palpation, 1-5 B/L
--- OUTSIDE RECORDS SUMMARY | 2024-05-13 09:51 | XMS_ITS ---
Author 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 Name Role Phone Taye YIN, Silvio Primary Care Provider Mouna Love Unavailable [phone] Allergies No Known Allergies REASON FOR VISIT PCP: 09/2023, Painful nail(s) aggravated by shoes causing difficulty standing/walking Medications Medication SIG (Take, Route, Frequency, Duration) Notes Start Date End Date Status Latanoprost 0.005 % 1 drop into affected eye in the evening Ophthalmic Once a day Not-Taking Keflex 500 MG 1 capsule Orally nelida ry 12 hrs for 7 days 07/30/2018 Not-Taking Naproxen 500 MG 1 tablet with food o r milk as needed Orally every 12 hrs Not-Taking ProAir HFA 108 (90 Base) MCG/ACT 2 puffs as needed Inhalation every 6 hrs PRN Not-Takin g Apple Cider Vinegar Not-Taking Multi Complete - as directed Orally Active Ciclopirox Olamine 0.77 % APPLY TO EFFEC MANYN AREAS EXTERNALY TWICE A DAY 30 DAYS for 30 Active Ciclopirox 0.77 % 1 application Externally Twice a day for 90 days 05/27/2022 Active Vitamin C 1000 MG 1 tablet Orally Once a day for 30 day(s) Active Vitamin D3 Active Aspirin 81 MG 1 tablet Orally Once a day Active Triamcinolone Acetonide 0.1 % 1 application to affected area Externally Twice a day Not-Takin g Atorvastatin Calcium 80 MG 1 tablet Orally [...] No Vital Signs Height 5ft 11in in 12/16/2023 Weight 192 lbs 12/16/2023 BMI 26.78 kg/m2 12/16/2023 Blood pressure systolic 127 mm Hg 12/16/19 24 Blood pressure diastolic 72 mm Hg 024 Encounters Encounter Location Date Provider Diagnosis [facility] [place] [address] [place] [address] 12/16/2023 Mouna Irvingclaudio Tinea unguium B35.1 ; Other hammer toe(s) (acquired), left foot M20.42 ; Pain in right toe(s) M79.674 and Pain in left toe(s) M79.675 Assessments Encounter Date Diagnosis (ICD Code) Assessment Notes Treatment Notes Treatment Clinical Notes Section Notes 12/16/2023 Tinea unguium (ICD-10 - B35.1) 12/16/2023 Other hammer toe(s) (acquired), left foot (ICD-10 - M20.42) 12/16/2023 Pain in right toe(s) (ICD-10 - M79.674) 12/16/2023 Pain in left toe(s) (ICD-10 - M79.675) Plan Of Treatment Next Appt Details Follow Up: 3 Months, Reason: Provider Name:Mouna Snyder Irving snyder, 06/15/2024 09:00:00 AM, [address] [place], [address], Procedure Notes * Category Sub-Category Detail Notes [...] as necessary. Patient chooses, no pharmaceutical tx (54306) Progress Notes * Jean Marie BOSE PDOB:[birth year] (78 yo M)Acc No.[id number]:12/16/2023 Progress Note Patient:?Jean Marie Bose Provider:?Mouna Gongora DPM :1945???Age:78 Y???Sex:Male Lenin e:12/16/2023 Address:[address] [place] [address] Pcp:Silvio Kothari MD Subjective: * Chief Complaints: * ???PCP: ainful nail( s) aggravated by shoes causing difficulty standing/walking * HPI: [...] Verified] Objective: * Vitals:?Ht: 5ft 11in, Wt: 19 2, BMI: 26.78, Shoe size: 9.5, BP: 127/72 mm Hg, Ht- cm: 180.34 cm, Wt-k.09 kg. * Examination: ???Nails: ?NAILS are:?Elongated, overgrown, [...] as necessary. Patient chooses, no pharmaceutical tx (38289).? * Procedure Codes:?00164 DEBRI DE NAIL, 6 OR MORE, Modifiers: XS * Follow Up:?3 Months * Images: * Sign off status: Completed true * Provider:?Mouna Gongora, DPM Date:? Generated for Nino bustamante/Matt/eTransmitting on:?05/13/2024 [...]
--- OUTSIDE RECORDS SUMMARY | 2024-05-13 09:52 | XMS_ITS | Patient Health Record ---
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 Name Role Phone Rocky Kothari MDh Primary Care Provider Mouna Love Unavailable [phone] Allergies No Known Allergies Reason For Referral No Information Medications Medication SIG (Take, Route, Frequency, Duration) Notes Start Date End Date Status Aspirin 81 MG 1 tablet Orally Once a day Active Multi Complete - as directed Orally Active Atorvastatin Calcium 80 MG 1 tablet Orally Once a day Active Ciclopirox 0.77 % 1 application Externally Twice a day for 90 days 05/27/2022 Active Ciclopirox Olamine 0.77 % APPLY TO EFFEC MANNY AREAS EXTERNALY TWICE A DAY 30 DAYS for 30 Active Vitamin D3 Active Vitamin C 1000 MG 1 tablet Orally Once a day for 30 day(s) Active Naproxen 500 MG 1 tablet with food o r milk as needed Orally every 12 hrs Not-Taking Clopidogrel & Aspirin Active Keflex 500 MG 1 capsule Orally nelida ry 12 hrs for 7 days 07/30/2018 Not-Taking Apple Cider Vinegar Not-Taking ProAir HFA 108 (90 Base) MCG/ACT 2 puffs as needed Inhalation every 6 hrs PRN Not-Davidin g Latanoprost 0.005 % 1 drop into affected eye in the evening Ophthalmic Once a day Not-Taking Triamcinolone Acetonide 0.1 % 1 application to affected area Externally Twice a day Not-Serge g Social History Tobacco Use: Social History Observation [...] Are you an other tobacco user? No Problems Problem Type SNOMED Code ICD Code Onset Dates Problem Status W/U Status Risk Notes Problem 04917710 Other hammer toe(s) (acquired), left foot (M20.42) Active confirmed Problem Plantar wart (50139139) Plantar wart (B07.0) Active confirmed Problem 06540801 Non-pressure ulcer of left lower extremity, limited to breakdown of skin (L97.921) Active confirmed Problem 764819416 Hammer toe of right foot (M20.41) Active confirmed Vital Signs Blood pressure diastolic 72 mm Hg 12/16/2023 Height 5ft 11in in 03/16/2024 Blood pressure systolic 127 mm Hg 12/16/2023 Weight 187 lbs 03/16/2024 BMI 26.08 kg/m2 03/16/2024 Encounters Encounter Location Date Provider Diagnosis [address] [address] 06/17/2023 Mouna Perica Tinea unguium B35.1 ; Other hammer toe(s) (acquired), left foot M20.42 ; Pain in right toe(s) M79.674 and Pain in left toe(s) M79.[address] [address] 09/16/2023 Mouna Perica Tinea unguium B35.1 ; Other hammer toe(s) (acquired), left foot M20.42 ; Pain in right toe(s) M79.674 and Pain in left toe(s) M79.[address] [address] 12/16/2023 Mouna Perica Tinea unguium B35.1 ; Other hammer toe(s) (acquired), left foot M20.42 ; Pain in right toe(s) M79.674 and Pain in left toe(s) M79.[address] [address] 03/16/2024 Mouna Perica Tinea unguium B35.1 ; Pain in right toe(s) M79.674 and Pain in left toe(s) M79.675 Assessments Encounter Date Diagnosis (ICD Code) Assessment Notes Treatment Notes Treatment Clinical Notes Section Notes 06/17/2023 Tinea unguium (ICD-10 - B35.1) 06/17/2023 Other hammer toe(s) (acquired), left foot (ICD-10 - M20.42) 09/16/2023 Tinea unguium (ICD-10 - B35.1) 12/16/2023 Tinea unguium (ICD-10 - B35.1) 03/16/2024 Tinea unguium (ICD-10 - B35.1) 03/16/2024 Pain in right toe(s) (ICD-10 - M79.674) 03/16/2024 Pain in left toe(s) (ICD-10 - M79.675) 12/16/2023 Other hammer toe(s) (acquired), left foot (ICD-10 - M20.42) 09/16/2023 Other hammer toe(s) (acquired), left foot (ICD-10 - M20.42) 06/17/2023 Pain in right toe(s) (ICD-10 - M79.674) 06/17/2023 Pain in left toe(s) (ICD-10 - M79.675) 09/16/2023 Pain in right toe(s) (ICD-10 - M79.674) 12/16/2023 Pain in right toe(s) (ICD-10 - M79.674) 12/16/2023 Pain in left toe(s) (ICD-10 - M79.675) 09/16/2023 Pain in left toe(s) (ICD-10 - M79.675) Plan Of Treatment Pending Test Test Name Order Date X ray : Foot, left 3V 07/30/2018 X ray : Foot, left 3V 10/13/2018 Next Appt Details Provider Name:Mouna snyder, 06/15/2024 09:00:00 AM, [address] [place] [address], [phone], Insurance Providers Payer Name Payer Address Payer Phone Subscriber Number Group Number Insured Name Patient Relationship to Insured Coverage Start Date Coverage End Date Medicare National [employer] [address] [place] [address] [id number] Jean Marie Bose Self - patient is the insured [employer] [address] [place] [address] [id number] Jean Marie Bose Self - patient is the insured Medical (General) History Medical History History ICD Code Arthritis Stomach ulcer Warts Measles Chicken pox Stroke 2023 Surgical History Surgery Date(Month/Year) hernia Cataract surgery both eyes- Glaucoma rig ht eye only 10/25/2018-11/08/2018 Hospitalization History Reason Date(Month/Year) stroke UTI
== END 2024-05-13 10:31 | disposition home or self-care (01) ==
PROVIDERS: PCP Internal Medicine; Visit Provider Internal Medicine
DX: Z86.73 Personal history of transient ischemic attack (TIA), and cerebral infarction without residual deficits (principal); I65.21 Occlusion and stenosis of right carotid artery; E78.00 Pure hypercholesterolemia, unspecified; G47.33 Obstructive sleep apnea (adult) (pediatric); R73.01 Impaired fasting glucose; E55.9 Vitamin D deficiency, unspecified; L71.9 Rosacea, unspecified; N40.1 Benign prostatic hyperplasia with lower urinary tract symptoms; R33.8 Other retention of urine; K59.00 Constipation, unspecified; E66.3 Overweight

== ENCOUNTER → 2024-05-13 09:36 | Outpatient (BNVA) | payer MEDICARE, SELFPAY | PROVIDERS: PCP Internal Medicine; Visit Provider Internal Medicine | DX: I65.21 Occlusion and stenosis of right carotid artery (principal); E78.00 Pure hypercholesterolemia, unspecified; G47.33 Obstructive sleep apnea (adult) (pediatric); R73.01 Impaired fasting glucose; E55.9 Vitamin D deficiency, unspecified; L71.9 Rosacea, unspecified; N40.1 Benign prostatic hyperplasia with lower urinary tract symptoms; R33.8 Other retention of urine; K59.00 Constipation, unspecified; E66.3 Overweight; Z68.26 Body mass index [BMI] 26.0-26.9, adult; Z71.3 Dietary counseling and surveillance | CPT/HCPCS: 96127; 99212 ==

== ENCOUNTER 2024-11-09 07:21 | Outpatient (REF) | payer MEDICARE, SELFPAY ==
[2024-11-09 07:34] LABS: MANUAL DIFF FLAG NO
[2024-11-09 08:13] LABS: Basophils Percent Auto 0.2 % (0-2); Eosinophils Absolute Auto 0.2 X10*3/uL (0.0-0.4); Eosinophils Percent Auto 2.7 % (0-4); Hematocrit 46.9 % (42.0-52.0); Hemoglobin 16.2 g/dl (14.0-18.0); Imm Gran Abs Auto 0.02 X10*3/uL (0.00-0.03); Imm Gran Pct Auto 0.2 % (0.0-0.4); Lymphocytes Absolute Auto 2.3 X10*3/uL (1.2-4.9); Lymphocytes Percent Auto 26.4 % (20-40); Mean Corpuscular HGB Conc 34.5 g/dl (31.0-36.0); Mean Corpuscular Volume 92.7 fL (80.0-98.0); Mean Platelet Volume 8.8 fL (9.4-12.4); Monocytes Absolute Auto 0.7 X10*3/uL (0.1-1.2); Monocytes Percent Auto 7.6 % (2-11); Neutrophils Absolute Auto 5.5 x10*3/uL (2.0-8.3); Neutrophils Percent Auto 62.9 % (45-73); Platelet Count 205 X10*3/uL (160-400); Red Blood Count 5.06 X10*6/uL (4.60-5.80); Red Cell Distribution Width 13.2 % (11.0-16.0); White Blood Count 8.8 X10*3/uL (4.8-10.8)
[2024-11-09 08:28] LABS: Appearance Urine Clear; Color Urine Yellow; Glucose Urine UA Negative (Negative); Leukocyte Esterase Urine Negative (Negative); Nitrite Urine Negative (Negative); PH 6.5 (5.0-9.0); Specific Gravity - Urine 1.025 (1.005-1.025); Urine Blood Negative (Negative); Urine Ketones Negative (Negative); Urine Protein Negative (Neg-Trace)
[2024-11-09 08:53] LABS: Alanine Aminotransferase 24 U/L (0-40); Albumin Level 4.3 g/dL (3.5-5.0); Alkaline Phosphatase 89 U/L (39-117); Anion Gap 12 (12-20); Aspartate Amino Transferase 23 U/L (5-37); Bilirubin Total 0.9 mg/dL (0.0-1.0); Blood Urea Nitrogen 27 mg/dL (9-16); Calcium 9.6 mg/dL (8.4-10.2); Carbon Dioxide 26 mmol/L (22-29); Chloride 107 mmol/L (96-108); Cholesterol 103 mg/dL (<200); Estimated Glomerular Filt Rate > 60; Glucose Fasting 105 mg/dL (60-99); HDL Cholesterol 40 mg/dL (>40); LDL Cholesterol Calculated 54 mg/dL (<100); Potassium 4.1 mmol/L (3.3-5.1); Sodium 141 mmol/L (135-145); Total Protein 7.3 g/dL (6.5-8.0); Triglycerides 49 mg/dL (<150)
[2024-11-09 08:59] LABS: TSH reflex Free T4 1.14 uIU/mL (0.32-4.0); Vitamin D 25-OH Total 54.1 ng/mL (>30)
[2024-11-09 09:10] LABS: Folate 13.9 ng/mL (> or = 4.0); Vitamin B12 823 pg/mL (200-900)
== END 2024-11-09 07:22 | disposition home or self-care (01) ==
LOC: HO.LAB 07:21
PROVIDERS: PCP Internal Medicine; Visit Provider Internal Medicine
DX: E78.00 Pure hypercholesterolemia, unspecified (principal); E53.8 Deficiency of other specified B group vitamins; R30.0 Dysuria; D64.9 Anemia, unspecified; E55.9 Vitamin D deficiency, unspecified
CPT/HCPCS: 36415; 80053; 80061; 81003; 82306; 82607; 82746; 84443; 85025

== ENCOUNTER 2024-11-11 08:41 | Outpatient (AMB) | payer MEDICARE, SELFPAY ==
[2024-11-11 08:46] VITALS: BP 160/78; PULSE 60; O2SAT 97; BMI 24.8
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
--- OUTSIDE RECORDS SUMMARY | 2024-11-11 08:57 | XMS_ITS | Patient Health Record ---
Author Organization [facility] cody Arauz Address [address] [facility] [place] [address] Care Team Providers Care Business Management Manager Name Role Phone Silvio Kothari MD Primary Care Provider Mouna Love Unavailable [phone] Allergies No Known Allergies Reason For Referral No Information Medications Medication SIG (Take, Route, Frequency, Duration) Notes Start Date End Date Status Clopidogrel & Aspirin Active Keflex 500 MG 1 capsule Orally nelida ry 12 hrs; Duration: 7 days 07/30/2018 Not-Taking Naproxen 500 MG 1 tablet with food o r milk as needed Orally every 12 hrs Not-Taking Vitamin D3 Active Multi Complete - as directed Orally Active Aspirin 81 MG 1 tablet Orally Once a day Active Triamcinolone Acetonide 0.1 % 1 application to affected area Externally Twice a day Not-Takin g Atorvastatin Calcium 80 MG 1 tablet Orally Once a day Active Latanoprost 0.005 % 1 drop into affected eye in the evening Ophthalmic Once a day Not-Taking Apple Cider Vinegar Not-Taking Ciclopirox Olamine 0.77 % APPLY TO EFFEC MANNY AREAS EXTERNALY TWICE A DAY 30 DAYS; Duration: 90 Active Ciclopirox 0.77 % 1 application Externally Twice a day; Duration: 90 days 05/27/2022 Active Vitamin C 1000 MG 1 tablet Orally Once a day; Duration: 30 day(s) Active ProAir HFA 108 (90 Base) MCG/ACT 2 puffs as needed Inhalation every 6 hrs PRN Not-Takin g Social History Tobacco Use: Social History Observation Description Date Details (start date - stop date) Never Smoker NA - NA Alcohol Screen Question Answer Notes Did you have a drink containing alcohol in the p ast year? No Points 0 Interpretation Negative Tobacco use other than smoking: Question Answer Notes Are you an other tobacco user? No Tobacco Control (Standard) Question Answer Notes Tobacco use: Nonsmoker Problems No Known Problems Vital Signs Blood pressure diastolic 80 mm Hg 09/14/2024 Height 5ft 11in in 09/14/2024 Blood pressure systolic 122 mm Hg 09/14/2024 Weight 185 lbs 09/14/2024 BMI 25.8 kg/m2 09/14/2024 Encounters Encounter Location Date Provider Diagnosis [address] [address] 12/16/2023 Mouna Perica Tinea unguium B35.1 ; Other hammer toe(s) (acquired), left foot M20.42 ; Pain in right toe(s) M79.674 and Pain in left toe(s) M79.[address] [address] 03/16/2024 Mouna Perica Tinea unguium B35.1 ; Pain in right toe(s) M79.674 and Pain in left toe(s) M79.[address] [address] 06/15/2024 Mouna Perica Tinea unguium B35.1 ; Pain in right toe(s) M79.674 and Pain in left toe(s) M79.[address] [address] 09/14/2024 Mouna Perica Tinea unguium B35.1 ; Pain in right toe(s) M79.674 and Pain in left toe(s) M79.675 Assessments Encounter Date Diagnosis (ICD Code) Assessment Notes Treatment Notes Treatment Clinical Notes Section Notes 12/16/2023 Tinea unguium (ICD-10 - B35.1) 03/16/2024 Tinea unguium (ICD-10 - B35.1) 03/16/2024 Pain in right toe(s) (ICD-10 - M79.674) 06/15/2024 Tinea unguium (ICD-10 - B35.1) 09/14/2024 Tinea unguium (ICD-10 - B35.1) 09/14/2024 Pain in right toe(s) (ICD-10 - M79.674) 06/15/2024 Pain in right toe(s) (ICD-10 - M79.674) 03/16/2024 Pain in left toe(s) (ICD-10 - M79.675) 12/16/2023 Other hammer toe(s) (acquired), left foot (ICD-10 - M20.42) 12/16/2023 Pain in right toe(s) (ICD-10 - M79.674) 06/15/2024 Pain in left toe(s) (ICD-10 - M79.675) 09/14/2024 Pain in left toe(s) (ICD-10 - M79.675) 12/16/2023 Pain in left toe(s) (ICD-10 - M79.675) Plan Of Treatment Pending Test Test Name Order Date X ray : Foot, left 3V 07/30/2018 X ray : Foot, left 3V 10/13/2018 Next Appt Details Provider Name:Mouna snyder, 12/14/2024 09:00:00 AM, [address] [facility], [place], [address], Insurance Providers Payer Name Payer Address Payer Phone Subscriber Number Group Number Insured Name Patient Relationship to Insured Coverage Start Date Coverage End Date Medicare National [employer] [address] [place] [address] [id number] Jean Marie Bose Self - patient is the insured [employer] [address] [place] [address] [id number] Jean Marie Bose Self - patient is the insured Medical (General) History Medical History History ICD Code Arthritis Stomach ulcer Warts Measles Chicken pox Stroke 2023 Surgical History Surgery Date(Month/Year) hernia Cataract surgery both eyes- Glaucoma rig ht eye only 10/25/2018-11/08/2018 Hospitalization History Reason Date(Month/Year) stroke UTI
== END 2024-11-11 09:42 | disposition home or self-care (01) ==
LOC: HO.HMCH 08:42
PROVIDERS: PCP Internal Medicine; Visit Provider Internal Medicine
DX: Z00.00 Encounter for general adult medical examination without abnormal findings (principal); E78.00 Pure hypercholesterolemia, unspecified; G47.33 Obstructive sleep apnea (adult) (pediatric); C43.21 Malignant melanoma of right ear and external auricular canal; R03.0 Elevated blood-pressure reading, without diagnosis of hypertension; R73.01 Impaired fasting glucose; Z86.73 Personal history of transient ischemic attack (TIA), and cerebral infarction without residual deficits; I65.21 Occlusion and stenosis of right carotid artery; E55.9 Vitamin D deficiency, unspecified; L71.9 Rosacea, unspecified; N40.1 Benign prostatic hyperplasia with lower urinary tract symptoms; R33.8 Other retention of urine

== ENCOUNTER 2024-11-11 08:41 | Outpatient (REF) | payer MEDICARE, SELFPAY ==
--- NOTE | ~2024-11-11 | XR_ITS ---
EXAMINATION: XR LUMBOSACRAL SPINE CLINICAL INFORMATION: M54.50 - Low back pain, unspecified COMPARISON: Correlated to CT dated April 07, 2023. TECHNIQUE: AP and lateral views. FINDINGS: Multilevel syndesmophyte formation and marginal osteophyte formation and endplate sclerosis and decreased intervertebral disc height throughout the axial skeleton. There is 20% volume loss of the vertebral bodies at L5 and L4 likely old. No acute cortical disruption or gross malalignment. Facet joint hypertrophy at L4-5 and L5-S1. Vascular calcifications, aorta. Sclerosis and the sacroiliac joints. No lytic or blastic lesions. XR/XR lumbar spine 2-3V IMPRESSION: Multilevel thoracolumbar spondylosis without acute fracture or gross listhesis. Atherosclerosis disease. Electronically signed by: Adam Mai MD 11/11/2024 10:21 AM EDT
--- NOTE | ~2024-11-11 | XR_ITS ---
EXAMINATION: XR CHEST CLINICAL INFORMATION: R05.8 - Other specified cough COMPARISON: November 17, 2016 TECHNIQUE: 2 views of the chest were obtained. FINDINGS: Pulmonary reticular pattern. Indistinct margins in the perihilar regions and prominence of the interstitial markings. No gross pleural effusion or pneumothorax Cardiomediastinal silhouette size is normal. Calcified plaque thoracic aorta. Multilevel syndesmophyte formation and marginal osteophyte formation with endplate sclerosis and decreased intervertebral disc height throughout the axial skeleton. Osteopenia versus osteoporosis. XR/XR chest 2V IMPRESSION: Acute on chronic airspace disease. Multilevel spondylosis suggesting ankylosis spondylitis in the correct clinical settings. Electronically signed by: Adam Mai MD 11/11/2024 10:18 AM EDT
== END 2024-11-11 08:42 | disposition home or self-care (01) ==
LOC: HO.XRAY 08:41
PROVIDERS: PCP Internal Medicine; Visit Provider Internal Medicine
DX: Z00.00 Encounter for general adult medical examination without abnormal findings (principal); I65.21 Occlusion and stenosis of right carotid artery; E78.00 Pure hypercholesterolemia, unspecified; G47.33 Obstructive sleep apnea (adult) (pediatric); R03.0 Elevated blood-pressure reading, without diagnosis of hypertension; R73.01 Impaired fasting glucose; E55.9 Vitamin D deficiency, unspecified; L71.9 Rosacea, unspecified; N40.1 Benign prostatic hyperplasia with lower urinary tract symptoms; R33.8 Other retention of urine; K59.00 Constipation, unspecified; C43.21 Malignant melanoma of right ear and external auricular canal; M54.50 Low back pain, unspecified; R05.8 Other specified cough; Z86.73 Personal history of transient ischemic attack (TIA), and cerebral infarction without residual deficits
CPT/HCPCS: 71046; 72100; 96127; 99212

== ENCOUNTER → 2024-11-11 09:55 | Outpatient (BNV) | payer MEDICARE, SELFPAY | PROVIDERS: PCP Internal Medicine; Visit Provider Radiology Diagnostic Radiology | DX: M47.815 Spondylosis without myelopathy or radiculopathy, thoracolumbar region (principal); R05.8 Other specified cough | CPT/HCPCS: 71046; 72100 ==

== ENCOUNTER 2025-02-24 10:11 | Outpatient (AMB) | payer MEDICARE, SELFPAY ==
[2025-02-24 10:14] VITALS: BP 112/72; PULSE 61; O2SAT 97; BMI 25.0
--- NOTE | 2025-02-24 10:14 | MHC.PC.OV ---
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 Merchandise Required: No Accompanied by: Self / Same As Patient Allergies brimonidine (BRIMONIDINE) Allergy (Intermediate, Verified 02/24/25 10:49) ITCHING Medication List - Last Reconciled 02/24/25 by Silvio Kothari MD ascorbate calcium (vitamin C) 1,000 mg PO DAILY aspirin 81 mg PO DAILY atorvastatin 80 mg PO BEDTIME 90 days cholecalciferol (vitamin D3) 50 mcg PO DAILY 90 days clopidogrel 75 mg PO DAILY 90 days multivitamin 1 tab PO DAILY Tobacco use date assessed: 02/24/25 Fall risk assessment: No Falls in past year Last assessed Fall Risk: 02/24/25 Dental Screening Dental Screen Date: 02/24/25 Did you have a dental visit in the last 12 months?: No Did you have a dental problem in the last 6 months where you did not have access to dental care?: No Was dental information given to patient?: Patient has dentist HPI elevated BP HPI Details Patient comes in today for his follow up visit States that he has been experiencing recurrent but brief bouts of sharp low back pain ever since he strained his lower back a few weeks ago Recalls that he was trying to pull out a dresser drawer then and he was bent down slightly but the drawer came out suddenly and causing him to lose his balance and straining his lower back in the process States that when he his lower back pain acts up , he is usually not able to move and tends to just stay in the position he was in at the time and let his lower back pain subside first, which it usually does after about 10 to 15 minutes, before he can start moving again normally Notes that his low back pain tends to be triggered when he is moving around but it does npt seem to be affected as much when he is sitting or standing States that he feels okay otherwise He denies any headaches or dizziness Denies any chest pains, no SOB; states that his previous recurrent cough seems to have subsided as he is no longer cough on and off daily recently No nausea/vomiting, no abdominal pain No change in bowel habits noted He was not able to get his follow up labs done prior to his appointment today [facility] Medical History Pure hypercholesterolemia Impaired fasting glucose Status post CVA Overweight (BMI 25.0-29.9) Lumbar disc herniation with radiculopathy Acute CVA (cerebrovascular accident) Vitamin D deficiency Constipation Benign localized hyperplasia of prostate with urinary retention COVID-19 Surgical History S/P TURP (status post transurethral resection of prostate) (~05/01/22) History of colonoscopy History of cataract surgery History of tonsillectomy History of appendectomy History of umbilical hernia repair History of hernia surgery Family History Mother No problems noted. Father No problems noted. Social History Household Members: Children Housing: House Do you presently have visiting nurse or other home services: No Alcohol intake: former Year quit: 02/06 Patient Tobacco Use Status: Former Tobacco user Tobacco use type: Cigarette e-Cigarette/Vaping Use: Never Used Second Hand Smoke Exposure: No Substance Use Type: Marijuana service: No Current occupational status: retired Cognitive needs: No Hearing needs: No Vision needs: Yes (glasses) Questionnaire PHQ-9 Over the last 2 weeks, how often have you been bothered by any of the following problems? 1. Little interest or pleasure in doing things: not at all 2. Feeling down, depressed, or hopeless: not at all 3. Trouble falling or staying asleep, or sleeping too much: not at all 4. Feeling tired or having little energy: not at all 5. Poor appetite or overeating: not at all 6. Feeling bad about yourself - or that you are a failure or have let yourself or your family down: not at all 7. Trouble concentrating on things, such as reading the newspaper or watching television: not at all 8. Moving or speaking so slowly that other people could have noticed. Or the opposite - being so fidgety or restless that you have been moving around a lot more than usual: not at all 9. Thoughts that you would be better off or of hurting yourself in some way: not at all Total score: 0 Depression Screening Interpretation: Negative Depression Screening Done: Yes Source: Developed by Drs. Rory Garay, Jackie Guzman, Uvaldo Milian and colleagues, with an educational lakia from [employer]. Thrive Questionnaire Date Thrive assessed: 11/11/24 I am a: Patient What is your living situation today?: I have a steady place to live Within the past 12 months, did the food you bought not last and you didn't have the money to get more?: Never true Within the past 12 months, did you worry whether your food would run out before you got money to buy more?: Never true Do you have trouble paying for medicines?: No Do you have trouble getting transportation to medical appointments?: No Do you have trouble paying your heating and electricity bill?: No Do you have trouble taking care of your child, family member or friend?: No Do you have trouble with day-to-day activities such as bathing, preparing meals, shopping, managing finances, etc.?: No Are you currently unemployed and looking for a job?: No Are you interested in more education?: No Please select the resources that you would like help with: None Currently or been in a relationship where the following occur: No concerns reported THRIVE Score: 0 AUDIT C Alcohol Use Questionnaire (AUDIT-C) 1. How often do you have a drink containing alcohol?: Never 3. How often do you have six or more drinks on one occasion?: Never Total Score: 0 TANGELA-7 AMB Questionnaire TANGELA-7 Date TANGELA - 7 assessed: 11/11/24 Feeling nervous, anxious, or on edge: 0 = Not at all Not being able to stop or control worryin = Not at all Worrying too much about different things: 0 = Not at all Trouble relaxin = Not at all Being so restless that it is hard to sit still: 0 = Not at all Becoming easily annoyed or irritable: 0 = Not at all Feeling afraid as if something awful might happen: 0 = Not at all Total TANGELA-7 score (0-4 normal; 5-9 mild; 10-14 moderate; 15-21 severe): 0 Source: Developed by Drs. Rory Garay, Jackie Guzman, Uvaldo Milian and colleagues, with an educational lakia from [employer]. Review of Systems Const Denies chills, Denies fatigue, Denies fever(s) and Denies headache(s) ENT Denies dysphagia, Denies dizziness, Denies otalgia, Denies headache(s), Denies neck pain, Denies odynophagia and Denies sore throat Card Denies chest pain, Denies rapid heart rate, Denies irregular heart rhythm, Denies palpitations and Denies dyspnea Resp Denies chest congestion, Denies cough and Denies dyspnea GI Denies abdominal pain, Denies constipation, Denies dysphagia, Denies heartburn, Denies diarrhea, Denies nausea, Denies odynophagia and Denies vomiting Denies difficulty urinating, Denies dysuria, Denies nocturia and Denies urinary frequency Musc Reports back pain (over the lower back - recurrent recently), Denies arthralgias and Denies neck pain Skin/Breast Denies rash Neuro Denies Abnormal speech present (but still has some trouble with word recall occasionally), Denies dizziness, Denies headache(s) and Denies paresthesias Endo Denies fatigue and Denies palpitations Physical exam (Primary Care) Vital Signs: Last Vital Signs Pulse 61 02/24/25 10:14 BP 136/80 02/24/25 10:58 Pulse Ox 97 02/24/25 10:14 Oxygen Delivery Method Room Air 02/24/25 10:14 BMI result Body Mass Index 25.0 Tobacco/Smoking Status: Tobacco use Status Tobacco use date assessed 02/24/25 02/24/25 10:18 Patient Tobacco Use Status Former Tobacco user 02/24/25 10:18 Tobacco use type Cigarette 02/24/25 10:18 e-Cigarette/Vaping Use Never Used 02/24/25 10:18 PHQ-9: PHQ-9 Score PHQ-9: Total score 0 02/24/25 11:18 Depression Screening Interpretation: Negative Thrive Assessment: Date of Thrive Assessment Date Thrive assessed 11/11/24 02/24/25 10:18 Currently or been in a relationship where the following occur: No concerns reported Const General: no acute distress and alert HENMT Ears: TM's normal bilaterally and EAC's normal Throat: Yes posterior oropharynx normal and Yes tonsils normal (no TP congestion) Neck Neck: Yes no lymphadenopathy and Yes supple Thyroid: Thyroid normal Resp Auscultation: clear to auscultation bilaterally, no rales and no wheezes Cardio Rate: regular rate Rhythm: regular rhythm Heart sounds: no murmurs GI Palpation (GI): Soft to palpation and nontender Auscultation: normal bowel sounds General: Yes no CVA tenderness Back/Spine/Pelvis Back: no CVA tenderness Thoracic/Lumbar Spine: No lumbar spinal tenderness Skin Rashes: no rashes Neuro Speech: No Abnormal speech present (but still has some trouble with word recall occasionally) Extrem General: Yes no clubbing, cyanosis or edema Coding Level of Care Code Est Pt Level 4 (38645) Diagnoses Midline low back pain without sciatica, unspecified chronicity M54.50 Back pain laterality: midline Chronicity: unspecified Sciatica presence: without sciatica Status post CVA Z86.73 Right internal carotid occlusion I65.21 Pure hypercholesterolemia E78.00 Severe obstructive sleep apnea G47.33 Elevated blood pressure reading R03.0 Impaired fasting glucose R73.01 Vitamin D deficiency E55.9 Rosacea L71.9 Constipation, unspecified constipation type K59.00 Constipation type: unspecified constipation type Benign localized hyperplasia of prostate with urinary retention N40.1; R33.8 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 Laterality: right Melanoma location: pinna Assessment & Plan Assessment & Plan (1) Low back pain: Code(s): M54.50 - Low back pain, unspecified Category: Medical Qualifiers: Back pain laterality: midline Chronicity: unspecified Sciatica presence: without sciatica Qualified Code(s): M54.50 - Low back pain, unspecified Plan: Lumbar spine x-rays done back in October 2024 revealed (+) Multilevel thoracolumbar spondylosis without acute fracture or gross listhesis Discussed with patient that his recent recurrent low back pains are most likely due to acute myofascial strain triggered by his recent injury/mishap Will try referring him agai to physical therapy for further evaluation and management - his lower back symptoms did improve with physical therapy and ultrasound treatment in the past Reinforced again activity and weight lifting restrictions to avoid aggravating his lower back issues (2) Status post CVA: Code(s): Z86.73 - Personal history of transient ischemic attack (TIA), and cerebral infarction without residual deficits Category: Medical Plan: Brain MRI done on 04/08/2023 revealed (+) few small acute infarcts within the left RICK territory involving the left cingulate gyrus and the left parasagittal frontal lobe, the latter at the high convexity at the level of the left frontal precentral gyrus. There is no mass effect and there is no hemorrhagic transformation. Absent right internal carotid artery flow void suggesting slow flow within versus occlusion of the right internal carotid artery which would be better assessed with a CTA of the head and neck. There is global cerebral volume loss and there is mild to moderate chronic microangiopathy CTA of the head and neck done subsequently revealed (+) evolving acute infarcts in the left RICK territory Continue Aspirin 81 mg QD and Clopidogrel 75 mg QD Patient also reportedly went to physical therapy subsequently and that his right leg function got back to baseline after his PT He continues to have some word finding difficulty/recall and has been referred to the speech center for speech and cognitive therapy Follow up with neurology as scheduled (3) Right internal carotid occlusion: Code(s): I65.21 - Occlusion and stenosis of right carotid artery Category: Medical Plan: CTA of the head and neck done in March 2023 revealed (+) evolving acute infarcts in the left RICK territory although these were better appreciated on his MRI. No significant mass effect or hemorrhagic transformation and no new territorial loss of monte-white differentiation are seen. (+) focally occluded distal A4 branch of the left RICK with reconstitution distally and occluded right ICA just beyond its origin and throughout the reconstituted supraclinoid segment via of the [place] Patient is advised to continue on dual antiplatelet therapy with Aspirin and Clopidogrel and on high-dose statin (Atorvastatin 80 mg) Will consider referring him to vascular surgery in the future for intervention of this if appropriate (4) Pure hypercholesterolemia: Code(s): E78.00 - Pure hypercholesterolemia, unspecified Category: Medical Plan: He was not able to get his follow up labs done prior to coming in for his appointment today Reinforced low cholesterol diet Continue Atorvastatin 80 mg QD Will recheck his labs and fasting lipids in 3 months for follow up - will just have patient use his current lab orders (updated today) for his next lab draw (5) Severe obstructive sleep apnea: Code(s): G47.33 - Obstructive sleep apnea (adult) (pediatric) Category: Medical Plan: Initial home sleep study done on 10/13/2023 revealed (+) severe obstructive sleep apnea Repeat sleep study with CPAP titration done subsequently recommended starting CPAP therapy at 7 cm pressure Follow up with Sleep Medicine as scheduled (6) Elevated blood pressure reading: Code(s): R03.0 - Elevated blood-pressure reading, without diagnosis of hypertension Category: Medical Plan: His blood pressure appears much better today Reinforced low sodium diet Patient is instructed to continue monitoring his blood pressure regularly (7) Impaired fasting glucose: Code(s): R73.01 - Impaired fasting glucose Category: Medical Plan: His FBS was borderline elevated on his most recent labs back in October 2024 but his HgbA1c was normal at 5.2% when previously checked Reinforced low calorie diet /exercise as tolerated (8) Vitamin D deficiency: Code(s): E55.9 - Vitamin D deficiency, unspecified Category: Medical Plan: Continue Vitamin D3 2000 units QD (9) Rosacea: Code(s): L71.9 - Rosacea, unspecified Category: Medical Plan: Continue Clindamycin 1% apply to rash on face QD Follow up with dermatology as scheduled (10) Constipation: Code(s): K59.00 - Constipation, unspecified Category: Medical Qualifiers: Constipation type: unspecified constipation type Qualified Code(s): K59.00 - Constipation, unspecified Plan: Reinforced increased oral fluids and dietary fiber intake Continue OTC stool softener PRN Have advised patient that he can also try drinking a glass of prune juice daily to help better manage his constipation (11) Benign localized hyperplasia of prostate with urinary retention: Code(s): N40.1 - Benign prostatic hyperplasia with lower urinary tract symptoms; R33.8 - Other retention of urine Category: Medical Plan: S/P TURP in April 2022 Recent biopsy showed no malignancy on pathology Follow up with urology as scheduled (12) Melanoma: Code(s): C43.9 - Malignant melanoma of skin, unspecified Category: Medical Qualifiers: Laterality: right Melanoma location: pinna Qualified Code(s): C43.21 - 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
[2025-02-24 10:58] VITALS: BP 136/80
== END 2025-02-24 11:06 | disposition home or self-care (01) ==
LOC: HO.HMCH 10:12
PROVIDERS: PCP Internal Medicine; Visit Provider Internal Medicine
DX: M54.50 Low back pain, unspecified (principal); Z86.73 Personal history of transient ischemic attack (TIA), and cerebral infarction without residual deficits; I65.21 Occlusion and stenosis of right carotid artery; E78.00 Pure hypercholesterolemia, unspecified; G47.33 Obstructive sleep apnea (adult) (pediatric); R03.0 Elevated blood-pressure reading, without diagnosis of hypertension; R73.01 Impaired fasting glucose; E55.9 Vitamin D deficiency, unspecified; L71.9 Rosacea, unspecified; K59.00 Constipation, unspecified; N40.1 Benign prostatic hyperplasia with lower urinary tract symptoms; C43.21 Malignant melanoma of right ear and external auricular canal; R33.8 Other retention of urine

== ENCOUNTER → 2025-02-24 10:11 | Outpatient (BNVA) | payer MEDICARE, SELFPAY | PROVIDERS: PCP Internal Medicine; Visit Provider Internal Medicine | DX: G47.33 Obstructive sleep apnea (adult) (pediatric) (principal); M54.50 Low back pain, unspecified; I65.21 Occlusion and stenosis of right carotid artery; E78.00 Pure hypercholesterolemia, unspecified; R03.0 Elevated blood-pressure reading, without diagnosis of hypertension; R73.01 Impaired fasting glucose; E55.9 Vitamin D deficiency, unspecified; L71.9 Rosacea, unspecified; K59.00 Constipation, unspecified; N40.1 Benign prostatic hyperplasia with lower urinary tract symptoms; R33.8 Other retention of urine; C43.21 Malignant melanoma of right ear and external auricular canal; Z86.73 Personal history of transient ischemic attack (TIA), and cerebral infarction without residual deficits | CPT/HCPCS: 96127; 99212 ==